=== PATIENT | female | born 1960 | race Caucasian/White ===

== ENCOUNTER 2022-01-11 08:12 | Day surgery (SDC) | payer OTHER, SELFPAY ==
[2022-01-07 08:06] VITALS: BMI 34.7
[2022-01-11 08:38] VITALS: BP 117/72; PULSE 81; RESP 18; TEMP 36.2; O2SAT 95; BMI 34.7
[2022-01-11] MEDS: SODIUM CHLORIDE 0.9 % (FLUSH) 10 ML SYRINGE IVF (08:47)
[2022-01-11] MEDS: LACTATED RINGERS 1000 ML 1,000 ML 100 ML IV (08:48)
[2022-01-11 09:36] LABS: Ur HCG Qualitative* Negative (Negative)
[2022-01-11] MEDS: BUPIVACAINE 0.25% 30 ML 15 ML INJECTION (10:57)
[2022-01-11] MEDS: LIDOCAINE 1% 20 ML VIAL INJECTION (10:57)
--- NOTE | 2022-01-11 11:04 | SUR.OPER ---
PATIENT QUESTIONS ANSWERED SATISFACTORILY PREOPERATIVELY.PATIENT BROUGHT TO OR #4 PER CART. Patient positioned supine on OR #4 bed for the . Pt. legs then moved into the lithotomy position for the procedure. Perioperative team supported arms bilaterally on arm boards. ?Final approval of positioning by surgeon. Continuous irrigation of the uterus with saline during the procedure. PREP - [place]-VAGINAL/VAULT AREA-UMBILICUS TO MID THIGH, ILIAC CREST TO ILIAC CREST.
--- NOTE | 2022-01-11 11:17 | W.PM.GYNPROC ---
Procedure Note Date Seen: 01/11/22 Procedure Details: DATE: 01/11/22 PREOPERATIVE DIAGNOSIS: 1. Postmenopausal bleeding. 2. Thickened endometrial lining, 1.3 cm, by ultrasound. 3. Submucosal fibroid, 1.4 cm, ultrasound. POSTOPERATIVE DIAGNOSIS: 1. Postmenopausal bleeding. 2. Thickened endometrial lining, 1.3 cm, by ultrasound. 3. Submucosal fibroid, 1.4 cm, ultrasound. NAME OF PROCEDURE: 1. Hysteroscopy. 2. D and C. 3. Polypectomy. 4. Submucosal fibroid. SURGEON: Ritchie. ANESTHESIA: Monitored anesthesia care and paracervical block. COMPLICATIONS: None.. ESTIMATED BLOOD LOSS: <10 mL. FINDINGS: Endometrial polyp arising from the posterior endometrium, near the left tubal ostia. A 2nd tiny endometrial polyp just within the right tubal ostia. Submucosal fibroid arising from the posterior endometrium, approximately 1/3 bulging in to the uterine cavity. PATHOLOGY SPECIMENS: 1. Combined specimen, endometrial polyp and submucosal fibroid. 2. Endometrial curettings. PROCEDURE: After obtaining informed consent, the patient was taken to the operating room where she received monitored anesthesia care. She was prepared and draped in the normal sterile fashion, in the dorsal lithotomy position. An open-sided bivalve speculum was introduced into the vagina and the cervix visualized. The anterior lip of the cervix was grasped with a single-tooth tenaculum for traction. A paracervical block was then administered using a total of 20 mL of a 50/50 mixture of 0.25% Marcaine and 1% lidocaine plain. The uterus was gently sounded. Sound length was 8 cm. The cervix was gently dilated to a #6 Hegar dilator. A hysteroscope was then advanced under direct visualization through the cervix into the uterine cavity. Sterile normal saline was used as distending medium. The uterine cavity was carefully inspected with the findings noted above. Pictures were taken for documentation purposes. The TruClear morcellator was inserted through the operating channel in the hysteroscope. The morcellator was used to remove the polyp in its entirety and the submucosal portion of the posterior fibroid. The hysteroscope was then removed. The endometrial lining was then sharply curetted. The hysteroscope was removed. The tenaculum was removed. There was little bleeding from the tenaculum site, which was controlled with direct pressure sponge stick. All instruments were then removed. The patient tolerated the procedure well. Sponge, lap, needle, and instrument counts reported as correct x2. The patient was taken to the recovery room awake in a stable condition.
[2022-01-11 11:23] VITALS: BP 130/68; PULSE 62; RESP 16; TEMP 36.4; O2SAT 95
[2022-01-11 11:30] VITALS: BP 135/80; PULSE 62; RESP 16; O2SAT 95
[2022-01-11 11:45] VITALS: BP 121/62; PULSE 54; RESP 16; O2SAT 98
[2022-01-11 12:00] VITALS: BP 132/73; PULSE 56; RESP 16; TEMP 36.1; O2SAT 99
--- NOTE | 2022-01-11 15:24 | W.ANESCHARGE ---
Anesthesia Charges Start Date/Time Anesthesia Start Date: 01/11/22 Anesthesia Start Time: 10:37 Stop Date/Time Anesthesia Stop Date: 01/11/22 Anesthesia Stop Time: 11:23 Summary Emergency: No
--- NOTE | 2022-01-11 15:28 | W.ANESCHARGE ---
Anesthesia Charges Start Date/Time Anesthesia Start Date: 01/11/22 Anesthesia Start Time: 10:37 Stop Date/Time Anesthesia Stop Date: 01/11/22 Anesthesia Stop Time: 11:23 Summary Emergency: No
== END 2022-01-11 12:14 | disposition home or self-care (01) ==
PROVIDERS: PCP Physician Assistant Medical; Visit Provider Obstetrics & Gynecology
PROC: 0UDB8ZZ Extraction of Endometrium, Via Natural or Artificial Opening Endoscopic (ICD-10-PCS; CPT 58558; principal; 2022-01-11 09:45)
DX: N95.0 Postmenopausal bleeding (principal); D25.0 Submucous leiomyoma of uterus; R93.89 Abnormal findings on diagnostic imaging of other specified body structures
CPT/HCPCS: 58558; 81025; 88305; 952; J1885; J2250; J2405; J2704; J3010; J3490; J7120

== ENCOUNTER 2022-04-10 20:38 | Day surgery (SDC) | payer OTHER, SELFPAY ==
[2022-04-10 20:49] VITALS: BP 184/102; PULSE 65; RESP 22; TEMP 35.5; O2SAT 98; BMI 34.9
--- NOTE | 2022-04-10 21:00 | CRLHL7_ITS ---
For Patients: As a result of the 21st Century Cures Act, medical imaging exams and procedure reports are released immediately into your electronic medical record. You may view this report before your referring provider. If you have questions, please contact your health care provider. INDICATION: Chest pain radiating to the back, vomiting.. TECHNIQUE: CT chest without contrast and CT chest, abdomen and pelvis acquired with 95 cc of Isovue 370 IV contrast, dissection protocol. COMPARISON: None. FINDINGS: CHEST: Cardiovascular structures: The unenhanced images demonstrate no evidence of aortic intramural thrombus. Thoracic aorta is normal in caliber without evidence of dissection. Heart size is normal. Mediastinum and romero: No mass or adenopathy. The calcified mediastinal node likely related to prior granulomatous disease. Lungs and pleura: Lungs are clear. Calcified granuloma in the right upper lobe (5/25). No pleural effusions. No pneumothorax. Chest wall and axilla: No mass or adenopathy. Bones: Unremarkable for age. ABDOMEN AND PELVIS: Limited arterial phase only images of the abdomen. Liver: Unremarkable. Gallbladder and bile ducts: 1.6 centimeter radiopaque stone at the neck of the gallbladder (6/215) the gallbladder is mildly distended. No surrounding inflammatory changes are identified. No wall thickening. No pericholecystic fluid. No intra or extrahepatic biliary ductal dilatation. Pancreas: Unremarkable. Spleen: Unremarkable. Adrenal glands: 1.7 centimeter nodule in the left adrenal gland measures 3.4 Hounsfield units on the noncontrast images consistent with adrenal adenoma. Right adrenal gland is unremarkable. Kidneys: No hydronephrosis or hydroureter. No renal stones identified. GI tract: Scattered colonic diverticulosis without evidence of diverticulitis. No bowel obstruction. Appendix is within normal limits. Tiny hiatal hernia. Vascular structures: Abdominal aorta is normal in caliber without evidence of dissection. Mesenteric arteries are patent. Incidentally noted 2 right renal arteries. Lymph nodes: Unremarkable. Miscellaneous: Unremarkable. No free air or significant free fluid. Pelvic Organs: Unremarkable. Bones: Unremarkable for age. IMPRESSION: No aortic dissection is identified. Cholelithiasis without evidence of cholecystitis. Left adrenal gland benign adenoma. Colonic diverticulosis without evidence of diverticulitis. Please note that all CT scans at this facility use dose modulation, iterative reconstruction, and/or weight-based dosing when appropriate to reduce radiation dose to as low as reasonably achievable. Dictated by Gareth Bailey MD @ 04/10/2022 10:12:49 PM (Electronically Signed)
[2022-04-10 21:07] VITALS: BP 187/90
[2022-04-10] MEDS: ONDANSETRON 2 MG/ML inj 4 MG IVP (21:13)
[2022-04-10] MEDS: NITROGLYCERIN 0.4 MG TAB.SUBL SUBLINGUAL (21:13)
[2022-04-10] MEDS: 0.9 % SODIUM CHLORIDE 1000 ml 1,000 ML IV (21:13)
[2022-04-10 21:20] LABS: Lactate* 1.6 mmol/L (0.5-1.9)
[2022-04-10 21:21] LABS: Hemoglobin* 14.1 gm/dL (12.0-16.0); White Blood Count* 11.84 K/uL (4.50-11.00)
[2022-04-10 21:22] LABS: Basophils Percent Auto 0.4 % (0.0-3.0); Eosinophils Percent Auto 4.1 % (0.0-7.0); Hematocrit 42.5 % (33.0-51.0); Immature Granulocytes Pct Auto 0.5 %; Lymphocytes Percent Auto 34.1 % (20-44); Mean Corpuscular HGB Conc 33 gm/dL (32-36); Mean Corpuscular Hemoglobin 27 pg (26-34); Mean Corpuscular Volume 82 fL (80-100); Monocytes Percent Auto 7.3 % (0.0-11.0); Neutrophils Percent Auto 53.6 % (42.0-72.0); Platelet Count* 358 K/uL (140-440)
[2022-04-10 21:23] VITALS: O2SAT 97
[2022-04-10 21:23] LABS: Slide Review Reflex No
--- NOTE | 2022-04-10 21:30 | ED.NURSE ---
POC Chem8 Results @ 0902 Na 138 K 3.8 Cl 105 iCa 1.17 TCO2 28 Glu 198 BUN 18 Hct 45 Hgb 15.3 AnGap 14
[2022-04-10 21:31] LABS: Troponin, Point-of-Care* 0.01 ng/ml (0.01-0.04)
[2022-04-10 21:34] LABS: Albumin* 4.5 g/dL (3.3-5.0)
[2022-04-10 21:35] LABS: Chloride* 103 mmol/L (96-114); Potassium* 4.1 mmol/L (3.6-5.1); Sodium* 136 mmol/L (135-149)
[2022-04-10 21:37] LABS: Alanine Aminotransferase* 25 U/L (4-35); Alkaline Phosphatase* 115 U/L (40-150); Aspartate Amino Transferase* 26 U/L (12-35); Bilirubin Direct* 0.2 mg/dL (0.0-0.5); Bilirubin Total* 0.3 mg/dL (0.1-1.5); Creatinine* 0.6 mg/dL (0.5-1.5); Est. Creatinine Clearance* 90.84; Estimated Glomerular Filt Rate 103 ml/min; Lipase* 74 U/L (23-300); Total Protein* 7.9 g/dL (6.0-8.3)
[2022-04-10 21:38] LABS: Blood Urea Nitrogen* 19 mg/dL (7-30); Carbon Dioxide* 23 mmol/L (20-32); Glucose* 203 mg/dL (60-115)
[2022-04-10 21:39] LABS: Calcium* 9.4 mg/dL (8.4-10.6)
[2022-04-10 21:50] VITALS: BP 149/68; PULSE 51; RESP 14; O2SAT 100
[2022-04-10 21:53] LABS: PCR FLU A Negative PCR FLU A (Negative); PCR FLU B Negative PCR FLU B (Negative); PCR RSV Negative PCR RSV (Negative)
--- OUTSIDE RECORDS SUMMARY | 2022-04-10 21:53 | XMS_ITS | Clinical Summary ---
:1960 Author Organization [employer] [facility] [place] [address] Care Team Providers Name Role Phone Daija Johns Primary Care Provider [phone] Allergies Active Allergy Reactions Severity Noted Date Comments Metformin Rash 10/05/2021 Tetracycline Rash, Photosensitivity 07/11/2010 Medications No known medications Active Problems Problem Noted Date Pap smear for cervical cancer screening 09/07/2021 Overview: 09/2021-NIL/HPVneg. Plan: Pap/HPV due 2026 Left Peroneal tendonitis 07/11/2010 Left edema of subcutaneous tissues of distal left calf Encounters Date Type Specialty Care Team Description 04/05/2022 Orders Only Lab, [facility] 04/05/2022 Travel 04/04/2022 Telephone Daija Johns PA L ab 01/11/2022 Lab Requisition Alejandrina Dugan MD from Last 3 Months Family History Medical History Relation Name Comments Anxiety disorder Brother Depression Brother Stroke Father Heart Disease Mother Lung cancer Mother Cancer-ovarian Sister metastasis Cancer-breast No Family History Relation Name Status Comments Brother Father (Age 51) Mother Sister Social History Tobacco Use Types Packs/Day Years Used Date Former Smoker Quit: 07/10/18 89 Smokeless Tobacco: Never Used Tobacco Cessation: Counseling Given: Yes Alcohol Use Standard Drinks/Week Comments No 0 (1 standard drink = 0.6 oz pure alcoho l) Sex Assigned at Date Recorded Not on file COVID-19 Exposure Response Date Recorded In the last 10 days, have you been in contact with No / Unsu re 04/05/2022 12:02 PM CDT someone who was confirmed or suspected to have Coronavirus/COVID-19? Obstetrics History Last Filed Vital Signs Vital Sign Reading Time Taken Comments Blood Pressure 102/70 01/05/2022 9:38 AM CDT Pulse 68 01/05/2022 9:38 AM CDT Temperature - - Respiratory Rate - - Oxygen Saturation 97% 01/05/2022 9:38 AM CDT Inhaled Oxygen Concentration - - Weight 96.2 kg (212 lb) 01/05/2022 9:38 AM CDT Height 166.4 cm (5' 5.5) 01/05/2022 9:38 AM CDT Body Mass Index 34.74 01/05/2022 9:38 AM CDT Plan of Treatment Health Maintenance Due Date Last Done Comments Pneumococcal series for age 19-64 (1 - 1968 PCV) Tdap 1973 Hepatitis C screening for age 18-79 1980 Hepatitis B series for Diabetes (1 of 3 - 1981 Risk 3-dose series) Tetanus booster 1982 Colonoscopy through age 75 2007 Zoster (shingles) series for age 50+ (1 of 2012 2) Influenza for age 50-64 03/10/2022 COVID-19 vaccine series (3 - Booster for 04/07/2022 022, 05/29/2021 Moderna series) Depression screening for age 12+ 10/07/2022 10/07/2021, Mammogram for age 45-75 12/27/2022 12/27/2021 BMI (ht and wt on same day) for age 18+ 01/05/2023 01/06/20 22, 10/05/2021 Lipids for age 45-75 10/05/2026 10/05/2021 Pap test for age 21-65 10/05/2026 10/05/2021, 10/05/2021 Procedures Procedure Name Priority Date/Time Associated Comments Diagnosis CBC WITH AUTO Routine 04/05/2022 12:23 Screening due Results f or this DIFFERENTIAL PM CDT procedure are i n the results section. GLUCOSE, RANDOM Routine 04/05/2022 12:23 Screening due Results for this PM CDT procedure are i n the results section. MAGNESIUM Routine 04/05/2022 12:23 Screening due Results fo r this PM CDT procedure are i n the results section. VITAMIN B12 Routine 04/05/2022 12:23 Screening due Results fo r this PM CDT procedure are i n the results section. CBC WITH AUTO Routine 04/05/2022 12:23 Screening due Results f or this DIFFERENTIAL PM CDT procedure are i n the results section. FERRITIN Routine 04/05/2022 12:23 Screening due Results fo r this PM CDT procedure are i n the results section. T4,FREE Routine 04/05/2022 12:23 Screening due Results fo r this PM CDT procedure are i n the results section. TSH WITH REFLEX Routine 04/05/2022 12:23 Screening due Results for this PM CDT procedure are i n the results section. HEMOGLOBIN A1C Routine 04/05/2022 12:23 Type 2 diabetes Result s for this PM CDT mellitus without procedure a re in complication, the results without long-term section. current use of insulin (HC) LAB TRACKING EVENT Routine 01/11/2022 11:15 AM CDT PATH TISSUE EXAM Routine 01/11/2022 11:15 Results for this AM CDT procedure are i n the results section. from Last 3 Months Results (ABNORMAL) CBC WITH AUTO DIFFERENTIAL (04/05/2022 12:23 PM CDT) [facility] gist Method Time Signature WHITE BLOOD 9.8 4.5 - 11.0 04/05/2022 [facility] COUNT thou/cu mm 12:34 PM T [facility] RED BLOOD COUNT 5.14 4.00 - 04/05/2022 [facility] 5.20 12:34 PM CDT [place] mil/cu mm CLINIC HEMOGLOBIN 14.3 12.0 - 04/05/2022 [facility] 16.0 g/dL 12:34 PM T [facility] HEMATOCRIT 42.3 33.0 - 04/05/2022 [facility] 51.0 % 12:34 PM T [facility] MCV 82 80 - 100 04/05/2022 [facility] fL 12:34 PM CDT [facility] MCH 27.8 26.0 - 04/05/2022 [facility] 34.0 pg 12:34 PM CDT [facility] MCHC 33.8 32.0 - 04/05/2022 [facility] 36.0 g/dL 12:34 PM CDT [facility] RDW 14.6 11.5 - 04/05/2022 [facility] 15.5 % 12:34 PM CDT [facility] PLATELET COUNT 357 140 - 440 04/05/2022 [facility] HEALTH thou/cu mm 12:34 PM CDT [facility] MPV 9.9 6.5 - 11.0 04/05/2022 [facility] fL 12:34 PM CDT [facility] % NEUT 58.1 % 04/05/2022 [facility] 12:34 PM CDT [facility] % LYMPH 30.4 % 04/05/2022 [facility] 12:34 PM CDT [facility] % MONO 7.5 % 04/05/2022 [facility] 12:34 PM CDT [facility] % EOS 3.4 % 04/05/2022 [facility] 12:34 PM CDT [facility] % BASO 0.6 % 04/05/2022 [facility] 12:34 PM CDT [facility] ABSOLUTE 5.7 1.7 - 7.0 04/05/2022 [facility] NEUTROPHILS thou/cu mm 12:34 PM CDT [facility] ABSOLUTE 3.0 (H) 0.9 - 2.9 04/05/2022 [facility] LYMPHOCYTES thou/cu mm 12:34 PM CDT [facility] ABSOLUTE 0.7 <0.9 04/05/2022 [facility] MONOCYTES thou/cu mm 12:34 PM CDT [facility] ABSOLUTE 0.3 <0.5 04/05/2022 [facility] EOSINOPHILS thou/cu mm 12:34 PM CDT [facility] ABSOLUTE 0.1 <0.3 04/05/2022 [facility] BASOPHILS thou/cu mm 12:34 PM CDT [facility] Specimen Anatomical Collection Method / Collection Time Recei gerard Time (Source) Location / Volume Laterality Blood BLOOD SPECIMEN / Venipuncture / 04/05/2022 12:23 04/05 Unknown Unknown PM CDT 12:26 PM CDT Daija WYATT HEMATOLOGY Performing Organization Address City/State/ZIP Code Phon e Number [facility] [address] [place] [address] TSH WITH REFLEX (04/05/2022 12:23 PM CDT) athologist Signature TSH 1.11 0.35 - 4.94 04/06/2022 [facility] uIU/mL 7:34 AM CDT LABORATORY-CENTR AL LABORATORY Specimen Anatomical Collection Method / Collection Time Recei gerard Time (Source) Location / Volume Laterality Blood BLOOD SPECIMEN / Venipuncture / 04/05/2022 12:23 04/05 Unknown Unknown PM CDT 12:26 PM CDT [facility] LABORATORY-CENTRAL LABORAT ORY - 04/06/2022 7:34 AM CDT In Adults, TSH values between 5.00 and 10.00 uIU/ml do not necessarily indicate the presence of Hyp othyroidism. Correlation with clinical findings such as presence of goiter and/or Thyroperoxidase (TPO) Antibody ma y be helpful. For more information please refer to PIO 20 ; 291: [phone]. Daija WYATT CHEMISTRY Performing Organization Address City/State/ZIP Code Phon e Number [facility] [address] [place] [id number] LABORATORY-CENTRAL 2000 LABORATORY GLUCOSE, RANDOM (04/05/2022 12:23 PM CDT) athologist [facility] GLUCOSE,RANDOM 97 65 - 140 04/05/2022 [facility] mg/dL 12:37 PM CDT [facility] Specimen Anatomical Collection Method / Collection Time Recei gerard Time (Source) Location / Volume Laterality Blood BLOOD SPECIMEN / Venipuncture / 04/05/2022 12:23 04/05 Unknown Unknown PM CDT 12:26 PM CDT Daija WYATT CHEMISTRY Performing Organization Address City/State/ZIP Code Phon e Number [facility] [address] [place] [address] T4,FREE (04/05/2022 12:23 PM CDT) athologist Signature T4,FREE 0.84 0.70 - 1.80 04/06/2022 [facility] ng/dL 7:34 AM CDT LABORATORY-CENTR AL LABORATORY Specimen Anatomical Collection Method / Collection Time Recei gerard Time (Source) Location / Volume Laterality Blood BLOOD SPECIMEN / Venipuncture / 04/05/2022 12:23 04/05 Unknown Unknown PM CDT 12:26 PM CDT Daija WYATT CHEMISTRY Performing Organization Address City/State/ZIP Code Phon e Number [facility] [address] [place] [address] LABORATORY-CENTRAL 2000 LABORATORY MAGNESIUM (04/05/2022 12:23 PM CDT) athologist Signature MAGNESIUM 2.0 1.6 - 2.6 04/06/2022 [facility] [employer] mg/dL 7:16 AM CDT LABORATORY-CENTR AL LABORATORY Specimen Anatomical Collection Method / Collection Time Recei gerard Time (Source) Location / Volume Laterality Blood BLOOD SPECIMEN / Venipuncture / 04/05/2022 12:23 04/05 Unknown Unknown PM CDT 12:26 PM CDT Daija WYATT CHEMISTRY Performing Organization Address City/State/[facility] Code Phon e Number [facility] [employer] [address] [place] [address] LABORATORY-CENTRAL 2000 LABORATORY HEMOGLOBIN A1C MONITORING (POCT) (04/05/2022 12:23 PM CDT) athologist Signature HEMOGLOBIN A1C 6.4 <=6.4 % 04/05/2022 [facility] [employer] MONITORING 12:38 PM CDT [facility] (POCT) [facility] Specimen Anatomical Collection Method / Collection Time Recei gerard Time (Source) Location / Volume Laterality Blood BLOOD SPECIMEN / Venipuncture / 04/05/2022 12:23 04/05 Unknown Unknown PM CDT 12:26 PM CDT Narrative [facility] - 2021 12:38 PM CDT ? (<=6.9%) ? Indicates good control ? (7.0% to 7.9%) ? Indicates fa ir control ? (>=8.0%) ? Indicates poor control ?? NOTE: ??These thresholds are guideli cara and ?individual targets may va ry. Falsely low levels may be seen with: Recent Transfusion, Recent Significant B lood Loss, Hemolytic Diseases, or Falsely elevated levels may be seen with : Untreated Anemias, Splenectomy ? Daija WYATT CHEMISTRY Performing Organization Address City/State/ZIP Code Phon e Number [facility] [address] [place] [address] FERRITIN (04/05/2022 12:23 PM CDT) athologist Signature FERRITIN 41.3 15.0 - 04/06/2022 [facility] 205.0 ng/mL 7:34 AM CDT LABORATORY-CENTR AL LABORATORY Specimen Anatomical Collection Method / Collection Time Recei gerard Time (Source) Location / Volume Laterality Blood BLOOD SPECIMEN / Venipuncture / 04/05/2022 12:23 04/05 Unknown Unknown PM CDT 12:26 PM CDT Daija WYATT CHEMISTRY Performing Organization Address City/[facility]/ZIP Code Phon e Number [facility] [address] [place] [address] LABORATORY-CENTRAL 2000 LABORATORY VITAMIN B12 (04/05/2022 12:23 PM CDT) athologist Signature VITAMIN B12 207 180 - 914 04/06/2022 [facility] pg/mL 11:50 AM CDT LABORATORY-[facility] LABORATORY Specimen Anatomical Collection Method / Collection Time Recei gerard Time (Source) Location / Volume Laterality Blood BLOOD SPECIMEN / Venipuncture / 04/05/2022 12:23 04/05 Unknown Unknown PM CDT 12:26 PM CDT Daija WYATT CHEMISTRY Performing Organization Address City/[facility]/ZIP Code Phon e Number [facility] [address] [place] [address] LABORATORY-CENTRAL 2000 LABORATORY LAB TRACKING EVENT (01/11/2022 11:15 AM CDT) Specimen Anatomical Collection Method Collection Time Receive d Time (Source) Location / / Volume Laterality Other (Other) Client Collect / 01/11/2022 11:15 2021 9:51 Unknown AM CDT PM CDT Alejandrina Dugan MD LAB BILL ONLY Performing Organization Address City/[facility]/ZIP Code Phon e Number [facility] [address] [place] [address] LABORATORY-CENTRAL 1999 LABORATORY PATH TISSUE EXAM (01/11/2022 11:15 AM CDT) Component Value Ref Test Analysis Performed At [facility] gist Range Method Time Signature Case Report Pathology Report ?Case: [id number] ? 01/13/2022 [facility] Authorizing Provider: ??Supp es, Alejandrina Templeton MD ?Collected: ? 01/11/2022 1115 ? 10:41 AM HEALTH Ordering Location: ? [facility] CENTRAL LAB ?Received: ?01/12/2022 0957 ? CDT [facility] Pathologist: ? Natali Jang MD ? ENTRAL Specimen: ?Endometrial C urettings ? LABORATORY Final A) ENDOMETRIUM WITH POLYP AND FIBROID, CURETTAGE AND P OLYPECTOMY: 01/13/2022 [facility] Electronically Diagnosis 1. Complex hyperplasia witho ut atypia in fragment(s) of endometrial polyp 10:41 AM HEALTH signed by Suhail , 2. Fragments of submucosal leiomyoma(s) CDT LABORATORY-C Natali Florentino, 3. Scant background inactive endometrium ENTRAL MD on 01/13/2022 4. Negative for malignancy in this sample LABORATORY at 10:41 AM 5. See comment Comment The presence of complex hype rplasia without atypia in an endometrial polyp is an uncommon finding. Although the precise clinical significance of this finding is not clear due to its infrequent nature, s 0 01/13/2022 [facility] uch a finding is thought to have a minimal risk of pro gression to carcinoma. 10:41 AM HEALTH CDT LABORATORY-C However, it is recommended t o ensure that the endometrial polyp is entirely removed and evaluated to exclude a more advanced lesion within the polyp. Thus a follow-up curettage may be necessary if clinically indicated. ENTRAL LABORATORY Case seen in consultation with Dr. Navarrete. Clinical 61-year-old 01/13/2022 [facility] Information female with 10:41 AM [facility] menorrhagia CDT LABORATORY-C ENTRAL LABORATORY Gross A) Received in formalin, lab eled with the patient's name and endometrial curettings, polyp, fibroid, is a 1.4 gram, 3 x 2.2 x 0.8 cm aggregate of multiple gaona-white, focally hemorrhagic soft tissue cu 01/13/2022 [facility] Description rettings which are wrapped and entirely submitted in 2 cassettes. 10:41 AM [facility] CDT LABORATORY-C The specimen was placed in formalin at 1115 on 01/11/2022. ENTRAL LABORATORY LDW 01/12/2022 Microscopic The final 01/13/2022 [facility] Description diagnosis is 10:41 AM [facility] based on CDT LABORATORY-C microscopic ENTRAL examination of LABORATORY appropriate sections of all specimens. Additional 01/13/2022 [facility] Information Interpreted at [facility] Laboratory, Central Laboratory - [address], [place] [address] 10:41 AM [facility] CDT LABORATORY-C ENTRAL LABORATORY Specimen Anatomical Collection Method Collection Time Receive d Time (Source) Location / / Volume Laterality Other 01/11/2022 11:15 01/12/2022 9:57 (Endometrial AM CDT AM CDT Curettings) Alejandrina Dugan MD PATHOLOGY/CYTOLOGY Performing Organization Address City/State/ZIP Code Phon e Number [facility] [address] [place] [address] LABORATORY-CENTRAL 2000 LABORATORY from Last 3 Months Insurance Payer Benefit Plan / Subscriber ID Effective Dates Phone Addre ss Type [facility] [employer] 2021-Present [address] [place] [address] Care Teams Manager [employer] Relationship Specialty Start Date End Date Daija Johns PA PCP - General Physician Medical Center Director 10/05/[address] [place] [address]
[2022-04-10 21:54] LABS: SARS PCR* Negative SARS-CoV-2 (Negative)
[2022-04-10] MEDS: MORPHINE 2 MG/ML inj 4 MG IVP (21:55)
[2022-04-10 21:57] LABS: Erythrocyte SedimentationRate* 9 mm/hr (2-20)
--- NOTE | 2022-04-10 22:06 | ED_ITS ---
HPI - General Adult General Chief complaint: Back Injury/Pain Stated complaint: Vomiting Back Pain Chest Pain Headache Time Seen by Provider: 04/10/22 20:44 Source: patient Mode of arrival: ambulatory Limitations: no limitations History of Present Illness HPI narrative: 61-year-old female coming in today complaining of pain. States that shortly after supper she started feeling a pressure in her central chest that radiated to both the left and right sides of the chest. She then went for a walk and this pain got significantly worse. The pain then radiated into her back across her entire mid back. She does not feel short of breath. She states that she cannot find a comfortable position because she is in so much pain. She does not feel dizzy or lightheaded. She denies any recent illness, fevers or chills. When the pain started she also started vomiting. She states that she has vomited multiple times since the pain has started. No blood in her vomitus. Patient does not smoke. No history of intra-abdominal or intrathoracic surgery, she has had a hysteroscopy and D&C in the past. She does have a history of diabetes. Nothing makes the pain better or worse. The pain does radiate down into her abdomen as well. Related Data Home Medications Medication Instructions Recorded Confirmed coenzyme Q10 400 mg capsule mg PO 01/24/22 01/24/22 garlic 500 mg capsule 500 mg PO QDAY 01/24/22 04/10/22 [id number] 04/10/22 magnesium citrate 75 ml PO HS 04/10/22 04/10/22 Allergies Allergy/AdvReac Type Severity Reaction Status Date / Time Tetracyclines Allergy Intermediate Verified 04/10/22 21:46 metformin AdvReac Intermediate itchy rash Verified 04/10/22 21:46 Review of Systems Status of ROS: Reports: 10 or more systems reviewed and unremarkable except as noted in History and below [facility] Medical History (Updated 04/10/22 @ 23:36 by Goldie De La Torre MD) Cyst of left Bartholin's gland duct Diabetes mellitus Endometrial hyperplasia without atypia, complex (01/11/22) History of melanoma Hyperlipidemia Pap smear for cervical cancer screening Peroneal tendinitis, left leg Status post hysteroscopy (01/11/22) Surgical History (Updated 04/10/22 @ 23:36 by Goldie De La Torre MD) History of tonsillectomy Hx of melanoma excision Social History Smoking Status: Never smoker How often do you have a drink containing alcohol: monthly or less How many standard drinks containing alcohol do you have on a typical day: 1 or 2 How often do you have six or more drinks on one occasion: Less than monthly AUDIT-C Alcohol total score: 2 Non-prescribed substance use: denies use Caffeine: No Exam Narrative: Exam Narrative: Well-nourished well-developed patient will is obviously uncomfortable. Alert and oriented. Answers questions appropriately. Mood and affect are appropriate. Thoughts are goal oriented and rational. No tangential or magical thinking noted. Patient speaks in full sentences without needing to catch her breath. Speech is not slurred or pressured HEENT: Normocephalic atraumatic. Pupils are equally round reactive to light. Extraocular muscles are intact. Conjunctivae are moist without any icterus noted. Moist mucous membranes. Posterior pharynx is normal. Neck is soft without any lymphadenopathy or thyromegaly. No masses are appreciated. Cardiovascular: Heart is regular rate and rhythm S1 and S2 are present without any murmurs. Lungs: Clear to auscultation bilaterally no wheezes rhonchi or rales are appreciated. Patient takes deep breaths without any discomfort. I cannot reproduce her pain on palpation. Abdomen: Soft and nontender nondistended with normal bowel sounds. No guarding or rebound. No masses or organomegaly appreciated. Negative Bangura sign. Extremities: Bilateral lower extremities are without edema. Normal and symmetric DP and PT pulses. Radial pulses are symmetric. Skin: Well perfused without any obvious rashes. Const: Vital Signs, click to edit/add: Vital Signs - 24 hr 04/10/22 20:49 04/10/22 21:07 04/10/22 21:23 Temperature 95.9 F L Pulse Rate [Left P ulse Oximeter] 65 Respiratory Rate 22 Blood Pressure [Le ft Upper Arm] 187/90 H Blood Pressure [Ri ght Upper Arm] 184/102 H Pulse Oximetry 98 97 Oxygen Delivery Me thod Room Air 04/10/22 21:50 Temperature Pulse Rate [Left P ulse Oximeter] 51 L Respiratory Rate 14 Blood Pressure [Le ft Upper Arm] 149/68 H Blood Pressure [Ri ght Upper Arm] Pulse Oximetry 100 Oxygen Delivery Me thod Room Air Course Reevaluation(s) Reevaluation #1: Upon arrival patient receives sublingual nitro which did not alleviate her pain. EKG was done which showed sinus bradycardia with a pulse of [address] changes. Patient received IV morphine and Zofran. The morphine did not help her pain however the Zofran did calm down her stomach and alleviate her nausea and vomiting. There was certainly a concern about aortic dissection therefore patient had a chest abdomen and pelvis CT with contrast done which fortunately did not show dissection however did show a large stone in the neck of the gallbladder. Labs were unremarkable, troponin was normal, no signs of cholecystitis noted on imaging or lab work. Who proceeded with IV Dilaudid which did help her symptoms. I consulted with Dr. Leroy who recommended admission and surgical intervention in the morning. Repeat troponin and EKG were unremarkable. Vital Signs Vital signs: Initial Vital Signs Temperature 95.9 F L 04/10/22 20:49 Temperature Source Temporal Artery Scan 04/10/22 20:49 Pulse Rate 65 04/10/22 20:49 Pulse Rhythm 04/10/22 20:49 Respiratory Rate 22 04/10/22 20:49 Blood Pressure 184/102 H 04/10/22 20:49 Blood Pressure Mean 129 04/10/22 20:49 Blood Pressure Position Sitting 04/10/22 20:49 Pulse Oximetry 98 04/10/22 20:49 Oxygen Delivery Method 04/10/22 20:49 Vital Signs Temperature 95.9 F L 04/10/22 20:49 Pulse Rate 65 04/10/22 20:49 Respiratory Rate 22 04/10/22 20:49 Blood Pressure 184/102 H 04/10/22 20:49 Pulse Oximetry 98 04/10/22 20:49 Oxygen Delivery Method 04/10/22 20:49 Temperature 95.9 F L 04/10/22 20:49 Pulse Rate 51 L 04/10/22 21:50 Respiratory Rate 14 04/10/22 21:50 Blood Pressure 149/68 H 04/10/22 21:50 Pulse Oximetry 100 04/10/22 21:50 Oxygen Delivery Method 04/10/22 21:50 Medical Decision Making MDM Narrative Medical decision making narrative: 61-year-old female with 1.6 cm stone at the neck of the gallbladder with gallbladder distension, likely the cause of her pain. Patient will be admitted for pain management and surgical intervention in the morning. Medical Records Medical records reviewed: Yes I reviewed the patient's medical records Lab Data Lab results reviewed: Yes I reviewed the patient's lab results Labs: Lab Results 04/10/22 04/10/22 04/10/22 Range/Units 21:02 21:02 21:02 WBC 11.84 H (4.50-11.00) K/uL RBC 5.20 (4.00-5.20) m/uL Hgb 14.1 (12.0-16.0) gm/dL Hct 42.5 (33.0-51.0) % MCV 82 (80-100) fL MCH 27 (26-34) pg MCHC 33 (32-36) gm/dL Plt Count 358 (140-440) K/uL Neut % (Auto) 53.6 (42.0-72.0) % Lymph % (Auto) 34.1 (20-44) % [place] % (Auto) 7.3 (0.0-11.0) % Eos % (Auto) 4.1 (0.0-7.0) % Baso % (Auto) 0.4 (0.0-3.0) % Neut # (Auto) 6.30 (1.7-7.0) K/uL Lymph # (Auto) 4.00 H (0.90-2.90) K/uL [place] # (Auto) 0.90 (0.00-0.90) K/UL Eos # (Auto) 0.50 (0.00-0.50) K/uL Baso # (Auto) 0.00 (0.00-0.30) K/uL Abs Immat Gran (auto) 0.10 (0.00-0.30) K/uL Imm/Tot Granulo (auto) 0.5 % ESR 9 (2-20) mm/hr Sodium 136 (135-149) mmol/L Potassium 4.1 (3.6-5.1) mmol/L Chloride 103 (96-114) mmol/L Carbon Dioxide 23 (20-32) mmol/L BUN 19 (7-30) mg/dL Creatinine 0.6 (0.5-1.5) mg/dL Estimated Creat Clear 90.84 Estimated GFR 103 ml/min Glucose 203 H (60-115) mg/dL Lactate (0.5-1.9) mmol/L Calcium 9.4 (8.4-10.6) mg/dL Total Bilirubin (0.1-1.5) mg/dL Direct Bilirubin (0.0-0.5) mg/dL AST (12-35) U/L ALT (4-35) U/L Alkaline Phosphatase (40-150) U/L C-Reactive Protein 1.0 (0.5-1.0) mg/dL Total Protein (6.0-8.3) g/dL Albumin (3.3-5.0) g/dL Lipase (23-300) U/L SARS-CoV-2 (PCR) (Negative) Influenza Type A (PCR) (Negative) Influenza Type B (PCR) (Negative) RSV (PCR) (Negative) POC Troponin I (0.01-0.04) ng/ml 04/10/22 04/10/22 04/10/22 Range/Units 21:02 21:02 21:02 WBC (4.50-11.00) K/uL RBC (4.00-5.20) m/uL Hgb (12.0-16.0) gm/dL Hct (33.0-51.0) % MCV (80-100) fL MCH (26-34) pg MCHC (32-36) gm/dL Plt Count (140-440) K/uL Neut % (Auto) (42.0-72.0) % Lymph % (Auto) (20-44) % [place] % (Auto) (0.0-11.0) % Eos % (Auto) (0.0-7.0) % Baso % (Auto) (0.0-3.0) % Neut # (Auto) (1.7-7.0) K/uL Lymph # (Auto) (0.90-2.90) K/uL [place] # (Auto) (0.00-0.90) K/UL Eos # (Auto) (0.00-0.50) K/uL Baso # (Auto) (0.00-0.30) K/uL Abs Immat Gran (auto) (0.00-0.30) K/uL Imm/Tot Granulo (auto) % ESR (2-20) mm/hr Sodium (135-149) mmol/L Potassium (3.6-5.1) mmol/L Chloride (96-114) mmol/L Carbon Dioxide (20-32) mmol/L BUN (7-30) mg/dL Creatinine (0.5-1.5) mg/dL Estimated Creat Clear Estimated GFR ml/min Glucose (60-115) mg/dL Lactate 1.6 (0.5-1.9) mmol/L Calcium (8.4-10.6) mg/dL Total Bilirubin 0.3 (0.1-1.5) mg/dL Direct Bilirubin 0.2 (0.0-0.5) mg/dL AST 26 (12-35) U/L ALT 25 (4-35) U/L Alkaline Phosphatase 115 (40-150) U/L C-Reactive Protein (0.5-1.0) mg/dL Total Protein 7.9 (6.0-8.3) g/dL Albumin 4.5 (3.3-5.0) g/dL Lipase 74 (23-300) U/L SARS-CoV-2 (PCR) (Negative) Influenza Type A (PCR) (Negative) Influenza Type B (PCR) (Negative) RSV (PCR) (Negative) POC Troponin I 0.01 (0.01-0.04) ng/ml 04/10/22 Range/Units 21:10 WBC (4.50-11.00) K/uL RBC (4.00-5.20) m/uL Hgb (12.0-16.0) gm/dL Hct (33.0-51.0) % MCV (80-100) fL MCH (26-34) pg MCHC (32-36) gm/dL Plt Count (140-440) K/uL Neut % (Auto) (42.0-72.0) % Lymph % (Auto) (20-44) % [place] % (Auto) (0.0-11.0) % Eos % (Auto) (0.0-7.0) % Baso % (Auto) (0.0-3.0) % Neut # (Auto) (1.7-7.0) K/uL Lymph # (Auto) (0.90-2.90) K/uL [place] # (Auto) (0.00-0.90) K/UL Eos # (Auto) (0.00-0.50) K/uL Baso # (Auto) (0.00-0.30) K/uL Abs Immat Gran (auto) (0.00-0.30) K/uL Imm/Tot Granulo (auto) % ESR (2-20) mm/hr Sodium (135-149) mmol/L Potassium (3.6-5.1) mmol/L Chloride (96-114) mmol/L Carbon Dioxide (20-32) mmol/L BUN (7-30) mg/dL Creatinine (0.5-1.5) mg/dL Estimated Creat Clear Estimated GFR ml/min Glucose (60-115) mg/dL Lactate (0.5-1.9) mmol/L Calcium (8.4-10.6) mg/dL Total Bilirubin (0.1-1.5) mg/dL Direct Bilirubin (0.0-0.5) mg/dL AST (12-35) U/L ALT (4-35) U/L Alkaline Phosphatase (40-150) U/L C-Reactive Protein (0.5-1.0) mg/dL Total Protein (6.0-8.3) g/dL Albumin (3.3-5.0) g/dL Lipase (23-300) U/L SARS-CoV-2 (PCR) Negative SARS-CoV-2 (Negative) Influenza Type A (PCR) Negative PCR FLU A (Negative) Influenza Type B (PCR) Negative PCR FLU B (Negative) RSV (PCR) Negative PCR RSV (Negative) POC Troponin I (0.01-0.04) ng/ml Imaging Data CT Chest/Ab/Pelvis: Attestation: I have reviewed the pertinent imaging results. Radiologist's impression: TECHNIQUE: CT chest without contrast and CT chest, abdomen and pelvis acquired with 95 cc of Isovue 370 IV contrast, dissection protocol. COMPARISON: None. FINDINGS: CHEST: Cardiovascular structures: The unenhanced images demonstrate no evidence of aortic intramural thrombus. Thoracic aorta is normal in caliber without evidence of dissection. Heart size is normal. Mediastinum and romero: No mass or adenopathy. The calcified mediastinal node likely related to prior granulomatous disease. Lungs and pleura: Lungs are clear. Calcified granuloma in the right upper lobe (5/25). No pleural effusions. No pneumothorax. Chest wall and axilla: No mass or adenopathy. Bones: Unremarkable for age. ABDOMEN AND PELVIS: Limited arterial phase only images of the abdomen. Liver: Unremarkable. Gallbladder and bile ducts: 1.6 centimeter radiopaque stone at the neck of the gallbladder (6/215) the gallbladder is mildly distended. No surrounding inflammatory changes are identified. No wall thickening. No pericholecystic flu id. No intra or extrahepatic biliary ductal dilatation. Pancreas: Unremarkable. Spleen: Unremarkable. Adrenal glands: 1.7 centimeter nodule in the left adrenal gland measures 3.4 Hounsfield units on the noncontrast images consistent with adrenal adenoma. Right adrenal gland is unremarkable. Kidneys: No hydronephrosis or hydroureter. No renal stones identified. GI tract: Scattered colonic diverticulosis without evidence of diverticulitis. No bowel obstruction. Appendix is within normal limits. Tiny hiatal hernia. Vascular structures: Abdominal aorta is normal in caliber without evidence of dissection. Mesenteric arteries are patent. Incidentally noted 2 right renal arteries. Lymph nodes: Unremarkable. Miscellaneous: Unremarkable. No free air or significant free fluid. Pelvic Organs: Unremarkable. Bones: Unremarkable for age. IMPRESSION: No aortic dissection is identified. Cholelithiasis without evidence of cholecystitis. Left adrenal gland benign adenoma. Colonic diverticulosis without evidence of diverticulitis. Discharge Plan Discharge Clinical Impression: Cholelithiasis Patient Disposition: Admitted As Inpatient Condition: Stable
[2022-04-10] MEDS: HYDROmorphone 0.5 mg/0.5 ml inj IVP (22:32)
--- NOTE | 2022-04-10 22:36 | P.IMHP_ITS ---
Hospitalist- H&P: HPI History of Present Illness Time Seen by Provider: 22:45 Date Seen: 04/11/22 Chief complaint: Vomiting Back Pain Chest Pain Headache Narrative: Rebekah Leroy is a 61 year old female who came in for sudden onset of back pain. She was doing well and had a grilled cheese sandwich and salad for dinner. Then at 6:45 p.m., she developed sudden onset of back pain. She also had bilateral upper abdomen and lower chest pain. She felt extremely uncomfortable. She had an episode similar to this about a year ago, and she thought it was her heart, so she was seen in an ER then as well. Her pain then lasted only a few hours, but this time her pain is not letting up. She's had no episodes in between. She had some vomiting this evening after the pain started. She is not nauseous now. Denies SOB, fever, chills. She tells me her sister just had her gallbladder out last week for symptomatic gallstones. Review of Systems Status of ROS: Reports: 10 or more systems reviewed and unremarkable except as noted in History and below [facility] Medical History (Updated 04/10/22 @ 23:36 by Goldie De La Torre MD) Cyst of left Bartholin's gland duct Diabetes mellitus Endometrial hyperplasia without atypia, complex (01/11/22) History of melanoma Hyperlipidemia Pap smear for cervical cancer screening Peroneal tendinitis, left leg Status post hysteroscopy (01/11/22) Surgical History (Updated 04/10/22 @ 23:36 by Goldie De La Torre MD) History of tonsillectomy Hx of melanoma excision Family History (Updated 04/10/22 @ 23:39 by Goldie De La Torre MD) Father Stroke Brother Graves disease Anxiety Depression Sister Carcinoma of ovary, stage 4 Symptomatic cholelithiasis High blood pressure Mother Heart disease Lung cancer Social History (Updated 04/10/22 @ 23:42 by Goldie De La Torre MD) Narrative: 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 , [place], with her samantha. They moved here from [place] 1 year ago. Quit smoking 1991. 1-2 alcoholic drinks per month. Had a glass of wine and half a beer this weekend. Denies recreational drug use. Full code. Smoking Status: Former smoker What tobacco products do you use: cigarettes Smoking quit date/years: >15 years ago How often do you have a drink containing alcohol: monthly or less How many standard drinks containing alcohol do you have on a typical day: 1 or 2 How often do you have six or more drinks on one occasion: Less than monthly AUDIT-C Alcohol total score: 2 Non-prescribed substance use: denies use Caffeine: No Meds Home Medications and Allergies Home Medications Medication Instructions Recorded Confirmed Type coenzyme Q10 400 mg capsule mg PO 01/24/22 01/24/22 History garlic 500 mg capsule 500 mg PO QDAY 01/24/22 04/10/22 History [id number] 04/10/22 History magnesium citrate 75 ml PO HS 04/10/22 04/10/22 History Allergies Allergy/AdvReac Type Severity Reaction Status Date / Time Tetracyclines Allergy Intermediate Verified 04/10/22 21:46 metformin AdvReac Intermediate itchy rash Verified 04/10/22 21:46 Exam Narrative: Exam Narrative: General: Appears uncomfortable, frowning, fidgeting and moving in the bed. Pleasant and appropriate. Awake alert oriented x3. HEENT: Normocephalic atraumatic, pupils equally round and reactive to light and accommodation. Oropharynx clear. Mucous membranes are moist. No JVD. Cardiovascular: Regular rate and rhythm. No murmurs, gallops, or rubs. Chest: No increased work of breathing. Clear to auscultation bilaterally. No crackles or wheezes. Abdomen: Bowel sounds present. Soft, nondistended, positive Bangura's sign, no rebound tenderness or guarding. No hepatosplenomegaly or masses. Extremities: No edema, no cyanosis or clubbing. Well-healed small surgical scar on the dorsal right midfoot. Skin: No jaundice, no pallor, no rashes. Const: Vital Signs, click to edit/add: Vital Signs - 24 hr 04/10/22 20:49 04/10/22 21:07 04/10/22 21:23 Temperature 95.9 F L Pulse Rate [Left P ulse Oximeter] 65 Respiratory Rate 22 Blood Pressure [Le ft Upper Arm] 187/90 H Blood Pressure [Ri ght Upper Arm] 184/102 H Pulse Oximetry 98 97 Oxygen Delivery Me thod Room Air 04/10/22 21:50 Temperature Pulse Rate [Left P ulse Oximeter] 51 L Respiratory Rate 14 Blood Pressure [Le ft Upper Arm] 149/68 H Blood Pressure [Ri ght Upper Arm] Pulse Oximetry 100 Oxygen Delivery Me thod Room Air Hospitalist - H&P: Result Labs Labs: Short CBC 04/10/22 Range/Units 21:02 WBC 11.84 H (4.50-11.00) K/uL Hgb 14.1 (12.0-16.0) gm/dL Hct 42.5 (33.0-51.0) % Plt Count 358 (140-440) K/uL BMP 04/10/22 21:02 Sodium 136 Potassium 4.1 Chloride 103 Carbon Dioxide 23 BUN 19 Creatinine 0.6 Glucose 203 H Calcium 9.4 Liver Function 04/10/22 Range/Units 21:02 Total Bilirubin 0.3 (0.1-1.5) mg/dL Direct Bilirubin 0.2 (0.0-0.5) mg/dL AST 26 (12-35) U/L ALT 25 (4-35) U/L Alkaline Phosphatase 115 (40-150) U/L Albumin 4.5 (3.3-5.0) g/dL Ordering Physician: Ying Flaherty MD Date of Service: 04/10/22 Procedure(s): CT aortic dissection Accession Number(s): [id number] cc: Ying Flaherty MD; Daija Johns PA-C~ For Patients: As a result of the Cures Act, medical imaging exams and procedure reports are released immediately into your electronic medical record. You may view this report before your referring provider. If you have questions, please contact your health care provider. INDICATION: Chest pain radiating to the back, vomiting.. TECHNIQUE: CT chest without contrast and CT chest, abdomen and pelvis acquired with 95 cc of Isovue 370 IV contrast, dissection protocol. COMPARISON: None. FINDINGS: CHEST: Cardiovascular structures: The unenhanced images demonstrate no evidence of aortic intramural thrombus. Thoracic aorta is normal in caliber without evidence of dissection. Heart size is normal. Mediastinum and romero: No mass or adenopathy. The calcified mediastinal node likely related to prior granulomatous disease. Lungs and pleura: Lungs are clear. Calcified granuloma in the right upper lobe (/). No pleural effusions. No pneumothorax. Chest wall and axilla: No mass or adenopathy. Bones: Unremarkable for age. ABDOMEN AND PELVIS: Limited arterial phase only images of the abdomen. Liver: Unremarkable. Gallbladder and bile ducts: 1.6 centimeter radiopaque stone at the neck of the gallbladder (6/215) the gallbladder is mildly distended. No surrounding inflammatory changes are identified. No wall thickening. No pericholecystic fluid. No intra or extrahepatic biliary ductal dilatation. Pancreas: Unremarkable. Spleen: Unremarkable. Adrenal glands: 1.7 centimeter nodule in the left adrenal gland measures 3.4 Hounsfield units on the noncontrast images consistent with adrenal adenoma. Right adrenal gland is unremarkable. Kidneys: No hydronephrosis or hydroureter. No renal stones identified. GI tract: Scattered colonic diverticulosis without evidence of diverticulitis. No bowel obstruction. Appendix is within normal limits. Tiny hiatal hernia. Vascular structures: Abdominal aorta is normal in caliber without evidence of dissection. Mesenteric arteries are patent. Incidentally noted 2 right renal arteries. Lymph nodes: Unremarkable. Miscellaneous: Unremarkable. No free air or significant free fluid. Pelvic Organs: Unremarkable. Bones: Unremarkable for age. IMPRESSION: No aortic dissection is identified. Cholelithiasis without evidence of cholecystitis. Left adrenal gland benign adenoma. Colonic diverticulosis without evidence of diverticulitis. Please note that all CT scans at this facility use dose modulation, iterative reconstruction, and/or weight-based dosing when appropriate to reduce radiation dose to as low as reasonably achievable. Dictated by Gareth Bailey MD @ 04/10/2022 10:12:49 PM (Electronically Signed) Assessment and Plan Assessment and plan (1) Cholelithiasis: Problem comment: symptomatic Status: Acute Assessment and Plan: Dr. Duque from general surgery is aware and is planning lap rebekah for tomorrow. No need for antibiotic at this time. * Admit * NPO * IVF maintenence * Recheck CBC, CMP in am * IV pain medication and antiemetic (2) Diabetes mellitus: Problem comment: type 2, diet controlled, 04/05/22 HgbA1c 6.4% Status: Chronic Assessment and Plan: If morning blood glucose from BMP is elevated, consider ISS.
[2022-04-10 22:47] VITALS: BP 133/67; RESP 14; TEMP 36.4; O2SAT 96
[2022-04-10 22:49] VITALS: O2SAT 96
[2022-04-11] VITALS (23 sets, daily range): BP systolic 102–167; BP diastolic 42–92; PULSE 51–96; RESP 12–24; TEMP 36.2–36.8; O2SAT 92–100
[2022-04-11 00:07] LABS: Troponin, Point-of-Care* 0.01 ng/ml (0.01-0.04)
[2022-04-11] MEDS: HYDROmorphone 0.5 mg/0.5 ml inj IVP ×3 (00:28→14:49)
[2022-04-11] MEDS: LACTATED RINGERS 1000 ML 1,000 ML 100 ML IV (00:32)
[2022-04-11] MEDS: ONDANSETRON 2 MG/ML inj 4 MG IVP ×2 (01:09→13:21)
--- NOTE | 2022-04-11 07:22 | PC.NURSE ---
Admitted last night with abdominal pain. Currently denies pain; states pain is gone for the last 4 hours. Denies nausea. Vitals are stable and satting fine on room air. Ambulating independently in the room. No further concerns noted
[2022-04-11 07:33] LABS: Basophils Percent Auto 0.3 % (0.0-3.0); Eosinophils Percent Auto 0.3 % (0.0-7.0); Hematocrit 39.2 % (33.0-51.0); Immature Granulocytes Abs Auto 0.03 K/uL (0.00-0.30); Lymphocytes Percent Auto 16.4 % (20-44); Mean Corpuscular HGB Conc 33 gm/dL (32-36); Mean Corpuscular Hemoglobin 27 pg (26-34); Mean Corpuscular Volume 82 fL (80-100); Monocytes Percent Auto 6.8 % (0.0-11.0); Neutrophils Percent Auto 75.9 % (42.0-72.0); Platelet Count* 318 K/uL (140-440); RDW Coefficient of Variation % 13.3 % (11.5-15.5); Red Blood Count 4.79 m/uL (4.00-5.20); White Blood Count* 11.49 K/uL (4.50-11.00)
[2022-04-11 07:40] LABS: Slide Review Reflex No
[2022-04-11 07:44] LABS: Albumin* 4.1 g/dL (3.3-5.0); Chloride* 106 mmol/L (96-114)
[2022-04-11 07:45] LABS: Sodium* 138 mmol/L (135-149)
[2022-04-11 07:47] LABS: Creatinine* 0.5 mg/dL (0.5-1.5); Est. Creatinine Clearance* 109.01; Estimated Glomerular Filt Rate 108 ml/min
[2022-04-11 07:48] LABS: Alanine Aminotransferase* 25 U/L (4-35); Alkaline Phosphatase* 94 U/L (40-150); Aspartate Amino Transferase* 23 U/L (12-35); Bilirubin Total* 0.3 mg/dL (0.1-1.5); Blood Urea Nitrogen* 11 mg/dL (7-30); Calcium* 8.9 mg/dL (8.4-10.6); Carbon Dioxide* 25 mmol/L (20-32); Glucose* 130 mg/dL (60-115)
--- NOTE | 2022-04-11 09:31 | P.GSCN_ITS ---
History of Present Illness Consult details Date Seen: 04/11/22 Consult date: 04/11/22 Narrative: 61-year-old female was admitted to the hospital with abdominal pain and I was asked by Dr. Flaherty to see her in consultation. Patient states that yesterday she developed right mid back and chest pain after eating dinner. She had a grilled cheese sandwich and potatoes for dinner. Her pain was described as crampy and was getting progressively worse. Patient tried to move around and went for a walk but could not get comfortable. She then started vomiting and vomited a total of 6 times. Her pain was persistent and patient decided to come to the emergency room. In the emergency room she was found to have an elevated WBC of 11. Liver function tests and her lipase were normal. Her basic metabolic panel was normal with the exception of elevated glucose. Patient is diabetic. An abdominal CT was obtained that showed no dilation in small large intestine. There was a large stone in the neck of the gallbladder with mildly distended gallbladder. There was no significant inflammation surrounding the gallbladder. Patient states that she had previous similar episodes of pain. When she moved to [place] as she had a similar episode that she can recall after eating fatty foods. Review of Systems Narrative: General: no fevers HENT: no problems swallowing CV: no shortness of breath Resp: no cough GI: See above : no dysuria, no increased urinary frequency, no hematuria Skin: no new rashes Musculoskeletal: + back pain radiating from the abdomen Neuro: no muscle weakness, patient recently injured her toe Psyche: no depression, no anxiety PFSH PFSH Medical History Cyst of left Bartholin's gland duct Diabetes mellitus Endometrial hyperplasia without atypia, complex (01/11/22) History of melanoma Hyperlipidemia Pap smear for cervical cancer screening Peroneal tendinitis, left leg Status post hysteroscopy (01/11/22) Surgical History History of tonsillectomy Hx of melanoma excision Family History Father Stroke Brother Graves disease Anxiety Depression Sister Carcinoma of ovary, stage 4 Symptomatic cholelithiasis High blood pressure Mother Heart disease Lung cancer Social History Narrative: 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 , [place], with her samantha. They moved here from [place] 1 year ago. Quit smoking 1991. 1-2 alcoholic drinks per month. Had a glass of wine and half a beer this weekend. Denies recreational drug use. Full code. Highest level of school completed/degree received: Bachelor's degree Smoking Status: Former smoker What tobacco products do you use: cigarettes Smoking quit date/years: >15 years ago How often do you have a drink containing alcohol: monthly or less How many standard drinks containing alcohol do you have on a typical day: 1 or 2 How often do you have six or more drinks on one occasion: Less than monthly AUDIT-C Alcohol total score: 2 Non-prescribed substance use: denies use Caffeine: No Gender Identity: female service: No Meds Home Medications and Allergies Home Medications Medication Instructions Recorded Confirmed Type garlic 500 mg capsule 1,000 mg PO BID 01/24/22 04/11/22 History coenzyme Q10 200 mg capsule (Co 200 mg PO DAILY 04/11/22 04/11/22 History Q-10) magnesium citrate 4 gram oral 4 g PO QHS 04/11/22 04/11/22 History packet plant sterol 1 cap PO DAILY 04/11/22 04/11/22 History turmeric 400 mg capsule 400 mg PO DAILY 04/11/22 04/11/22 History Allergies Allergy/AdvReac Type Severity Reaction Status Date / Time Tetracyclines Allergy Intermediate Verified 04/10/22 21:46 metformin AdvReac Intermediate itchy rash Verified 04/10/22 21:46 Exam Narrative: Exam Narrative: General appearance: Alert, cooperative, and in no distress Pulmonary: Chest symmetric, lungs clear bilaterally Cardiovascular Heart: Regular rate and rhythm, S1, S2, no murmurs/rubs/gallops Gastrointestinal Abdominal: soft, not tender to palpation, not distended, negative Bangura sign. Skin: Normal skin color, texture, and turgor. No rashes or lesions. Psychiatric: Alert, cooperative, normal affect. Const: Vital Signs, click to edit/add: Vital Signs - 24 hr 04/10/22 20:49 04/10/22 21:07 04/10/22 21:23 Temperature 95.9 F L Pulse Rate [Left P ulse Oximeter] 65 Respiratory Rate 22 Blood Pressure [Le ft Arm] Blood Pressure [Le ft Upper Arm] 187/90 H Blood Pressure [Ri ght Upper Arm] 184/102 H Pulse Oximetry 98 97 Oxygen Delivery Me thod Room Air 04/10/22 21:50 04/10/22 22:47 04/10/22 22:49 Temperature 97.6 F Pulse Rate [Left P ulse Oximeter] 51 L Respiratory Rate 14 14 Blood Pressure [Le ft Arm] 133/67 Blood Pressure [Le ft Upper Arm] 149/68 H Blood Pressure [Ri ght Upper Arm] Pulse Oximetry 100 96 96 Oxygen Delivery Me thod Room Air Room Air 04/11/22 02:35 04/11/22 03:00 04/11/22 07:30 Temperature 97.6 F 97.2 F L Pulse Rate [Left P ulse Oximeter] Respiratory Rate 14 14 18 Blood Pressure [Le ft Arm] 122/67 102/42 L Blood Pressure [Le ft Upper Arm] Blood Pressure [Ri ght Upper Arm] Pulse Oximetry 96 96 98 Oxygen Delivery Me thod Room Air Room Air Room Air 04/11/22 07:30 Temperature Pulse Rate [Left P ulse Oximeter] Respiratory Rate Blood Pressure [Le ft Arm] Blood Pressure [Le ft Upper Arm] Blood Pressure [Ri ght Upper Arm] Pulse Oximetry 98 Oxygen Delivery Me thod Results Labs Labs: Abnormal lab results 04/10/22 04/10/22 04/11/22 Range/Units 21:02 21:02 06:47 WBC 11.84 H 11.49 H (4.50-11.00) K/uL Neut % (Auto) 75.9 H (42.0-72.0) % Lymph % (Auto) 16.4 L (20-44) % Neut # (Auto) 8.70 H (1.7-7.0) K/uL Lymph # (Auto) 4.00 H (0.90-2.90) K/uL Glucose 203 H (60-115) mg/dL 04/11/22 Range/Units 06:47 WBC (4.50-11.00) K/uL Neut % (Auto) (42.0-72.0) % Lymph % (Auto) (20-44) % Neut # (Auto) (1.7-7.0) K/uL Lymph # (Auto) (0.90-2.90) K/uL Glucose 130 H (60-115) mg/dL Diabetes panel 04/10/22 04/10/22 04/11/22 Range/Units 21:02 21: 06:47 Sodium 136 138 (135-149) mmol/L Potassium 4.1 4.0 (3.6-5.1) mmol/L Chloride 103 106 (96-114) mmol/L Carbon Dioxide 23 25 (20-32) mmol/L BUN 19 11 (7-30) mg/dL Creatinine 0.6 0.5 (0.5-1.5) mg/dL Glucose 203 H 130 H (60-115) mg/dL Calcium 9.4 8.9 (8.4-10.6) mg/dL AST 26 23 (12-35) U/L ALT 25 25 (4-35) U/L Alkaline Phosphatase 115 94 (40-150) U/L Total Protein 7.9 7.0 (6.0-8.3) g/dL Albumin 4.5 4.1 (3.3-5.0) g/dL Calcium panel 04/10/22 04/10/22 04/11/22 Range/Units 21:02 21: 06:47 Calcium 9.4 8.9 (8.4-10.6) mg/dL Albumin 4.5 4.1 (3.3-5.0) g/dL Pituitary panel 04/10/22 04/11/22 Range/Units 21:02 06:47 Sodium 136 138 (135-149) mmol/L Potassium 4.1 4.0 (3.6-5.1) mmol/L Chloride 103 106 (96-114) mmol/L Carbon Dioxide 23 25 (20-32) mmol/L BUN 19 11 (7-30) mg/dL Creatinine 0.6 0.5 (0.5-1.5) mg/dL Glucose 203 H 130 H (60-115) mg/dL Calcium 9.4 8.9 (8.4-10.6) mg/dL Adrenal panel 04/10/22 04/10/22 04/11/22 Range/Units 21:02 21:02 06:47 Sodium 136 138 (135-149) mmol/L Potassium 4.1 4.0 (3.6-5.1) mmol/L Chloride 103 106 (96-114) mmol/L Carbon Dioxide 23 25 (20-32) mmol/L BUN 19 11 (7-30) mg/dL Creatinine 0.6 0.5 (0.5-1.5) mg/dL Glucose 203 H 130 H (60-115) mg/dL Calcium 9.4 8.9 (8.4-10.6) mg/dL Total Bilirubin 0.3 0.3 (0.1-1.5) mg/dL AST 26 23 (12-35) U/L ALT 25 25 (4-35) U/L Alkaline Phosphatase 115 94 (40-150) U/L Total Protein 7.9 7.0 (6.0-8.3) g/dL Albumin 4.5 4.1 (3.3-5.0) g/dL All other labs normal. Assessment and Plan Assessment and plan (1) Cholelithiasis: Problem comment: symptomatic Status: Acute Plan 61-year-old female with history of diabetes admitted to the hospital with symptomatic cholelithiasis. I discussed with the patient her laboratory and imaging findings. Patient has recurrent episodes of abdominal pain that are most likely related to symptomatic cholelithiasis. On presentation patient's pain was severe. Her EKG was normal and 2 troponins were negative. Patient's pain has now resolved but given her clinical presentation, her recurrent symptoms, and her history of diabetes, I think she would benefit from laparoscopic cholecystectomy. The procedure was discussed in detail. The risks associated the procedure including infection, bleeding, injury to intra-abdominal organs, injury to the common bile duct were all discussed with the patient, and she agreed to proceed.
--- NOTE | 2022-04-11 09:35 | PM.IMPN1 ---
Progress Note: A&P Assessment and plan (1) Cholelithiasis: Problem details: symptomatic Status: Acute (2) Diabetes mellitus: Problem details: type 2, diet controlled, 04/05/22 HgbA1c 6.4% Status: Chronic Plan 61-year-old female, generally healthy, admitted for cholecystitis. Patient will have a cholecystectomy with General surgery today. She is generally healthy, has diet controlled diabetes with a recent A1c of 6.4. She takes no prescription medications regularly, and has no history of anesthetic or surgical complications. No concerns from hospitalist team regarding surgery today. Time Spent With Patient Total time spent: 25 Subjective Date Seen: 04/11/22 Interval history: Rebekah is feeling good today, she is tolerating NPO status and pain medications. BG this morning was 130. No concerns for hospitalist team. Exam Narrative: Exam Narrative: GEN: Alert and oriented, answering questions appropriately HEENT: Normal external ears, EOMIs bilaterally, no scleral icterus CV: RRR, No concerning murmurs, rubs, or gallops R: LCTA bilaterally without concerning wheezing, rales, or rhonchi Ext: wwp, no concerning edema Skin: No concerning skin lesions or rashes on exposed skin Neuro: Nonfocal Psych: Appropriate Const: Vital Signs, click to edit/add: Vital Signs - 24 hr 04/10/22 20:49 04/10/22 21:07 04/10/22 21:23 Temperature 95.9 F L Pulse Rate [Left P ulse Oximeter] 65 Respiratory Rate 22 Blood Pressure [Le ft Arm] Blood Pressure [Le ft Upper Arm] 187/90 H Blood Pressure [Ri ght Upper Arm] 184/102 H Pulse Oximetry 98 97 Oxygen Delivery Me thod Room Air 04/10/22 21:50 04/10/22 22:47 04/10/22 22:49 Temperature 97.6 F Pulse Rate [Left P ulse Oximeter] 51 L Respiratory Rate 14 14 Blood Pressure [Le ft Arm] 133/67 Blood Pressure [Le ft Upper Arm] 149/68 H Blood Pressure [Ri ght Upper Arm] Pulse Oximetry 100 96 96 Oxygen Delivery Me thod Room Air Room Air 04/11/22 02:35 04/11/22 03:00 04/11/22 07:30 Temperature 97.6 F 97.2 F L Pulse Rate [Left P ulse Oximeter] Respiratory Rate 14 14 18 Blood Pressure [Le ft Arm] 122/67 102/42 L Blood Pressure [Le ft Upper Arm] Blood Pressure [Ri ght Upper Arm] Pulse Oximetry 96 96 98 Oxygen Delivery Me thod Room Air Room Air Room Air 04/11/22 07:30 Temperature Pulse Rate [Left P ulse Oximeter] Respiratory Rate Blood Pressure [Le ft Arm] Blood Pressure [Le ft Upper Arm] Blood Pressure [Ri ght Upper Arm] Pulse Oximetry 98 Oxygen Delivery Me thod Labs Labs: Laboratory Results - last 24 hr 04/10/22 04/10/22 04/10/22 21:02 21:02 21:02 WBC 11.84 H RBC 5.20 Hgb 14.1 Hct 42.5 MCV 82 MCH 27 MCHC 33 RDW Coeff of Bruno Plt Count 358 Neut % (Auto) 53.6 Lymph % (Auto) 34.1 [place] % (Auto) 7.3 Eos % (Auto) 4.1 Baso % (Auto) 0.4 Neut # (Auto) 6.30 Lymph # (Auto) 4.00 H [place] # (Auto) 0.90 Eos # (Auto) 0.50 Baso # (Auto) 0.00 Abs Immat Gran (auto) 0.10 Imm/Tot Granulo (auto) 0.5 ESR 9 Sodium 136 Potassium 4.1 Chloride 103 Carbon Dioxide 23 BUN 19 Creatinine 0.6 Estimated Creat Clear 90.84 Estimated GFR 103 Glucose 203 H Lactate Calcium 9.4 Total Bilirubin Direct Bilirubin AST ALT Alkaline Phosphatase C-Reactive Protein 1.0 Total Protein Albumin Lipase SARS-CoV-2 (PCR) Influenza Type A (PCR) Influenza Type B (PCR) RSV (PCR) POC Troponin I 04/10/22 04/10/22 04/10/22 21:02 21:02 21:02 WBC RBC Hgb Hct MCV MCH MCHC RDW Coeff of Bruno Plt Count Neut % (Auto) Lymph % (Auto) [place] % (Auto) Eos % (Auto) Baso % (Auto) Neut # (Auto) Lymph # (Auto) [place] # (Auto) Eos # (Auto) Baso # (Auto) Abs Immat Gran (auto) Imm/Tot Granulo (auto) ESR Sodium Potassium Chloride Carbon Dioxide BUN Creatinine Estimated Creat Clear Estimated GFR Glucose Lactate 1.6 Calcium Total Bilirubin 0.3 Direct Bilirubin 0.2 AST 26 ALT 25 Alkaline Phosphatase 115 C-Reactive Protein Total Protein 7.9 Albumin 4.5 Lipase 74 SARS-CoV-2 (PCR) Influenza Type A (PCR) Influenza Type B (PCR) RSV (PCR) POC Troponin I 0.01 04/10/22 04/10/22 04/11/22 21:10 23:20 06:47 WBC 11.49 H RBC 4.79 Hgb 13.0 Hct 39.2 MCV 82 MCH 27 MCHC 33 RDW Coeff of Bruno 13.3 Plt Count 318 Neut % (Auto) 75.9 H Lymph % (Auto) 16.4 L [place] % (Auto) 6.8 Eos % (Auto) 0.3 Baso % (Auto) 0.3 Neut # (Auto) 8.70 H Lymph # (Auto) 1.90 [place] # (Auto) 0.80 Eos # (Auto) 0.00 Baso # (Auto) 0.00 Abs Immat Gran (auto) 0.03 Imm/Tot Granulo (auto) ESR Sodium Potassium Chloride Carbon Dioxide BUN Creatinine Estimated Creat Clear Estimated GFR Glucose Lactate Calcium Total Bilirubin Direct Bilirubin AST ALT Alkaline Phosphatase C-Reactive Protein Total Protein Albumin Lipase SARS-CoV-2 (PCR) Negative SARS-CoV-2 Influenza Type A (PCR) Negative PCR FLU A Influenza Type B (PCR) Negative PCR FLU B RSV (PCR) Negative PCR RSV POC Troponin I 0.01 04/11/22 06:47 WBC RBC Hgb Hct MCV MCH MCHC RDW Coeff of Bruno Plt Count Neut % (Auto) Lymph % (Auto) [place] % (Auto) Eos % (Auto) Baso % (Auto) Neut # (Auto) Lymph # (Auto) [place] # (Auto) Eos # (Auto) Baso # (Auto) Abs Immat Gran (auto) Imm/Tot Granulo (auto) ESR Sodium 138 Potassium 4.0 Chloride 106 Carbon Dioxide 25 BUN 11 Creatinine 0.5 Estimated Creat Clear 109.01 Estimated GFR 108 Glucose 130 H Lactate Calcium 8.9 Total Bilirubin 0.3 Direct Bilirubin AST 23 ALT 25 Alkaline Phosphatase 94 C-Reactive Protein Total Protein 7.0 Albumin 4.1 Lipase SARS-CoV-2 (PCR) Influenza Type A (PCR) Influenza Type B (PCR) RSV (PCR) POC Troponin I
--- NOTE | 2022-04-11 12:21 | W.ANESCHARGE ---
Anesthesia Charges Start Date/Time Anesthesia Start Date: 04/11/22 Anesthesia Start Time: 11:50 Stop Date/Time Anesthesia Stop Date: 04/11/22 Anesthesia Stop Time: 13:16 Summary Emergency: No
[2022-04-11] MEDS: BUPIVACAINE 0.25% 30 ML INJECTION (12:44)
--- NOTE | 2022-04-11 13:01 | P.GSOP_ITS ---
Operative Note Date of procedure: 04/11/22 Type of Procedure: 1. Laparoscopic cholecystectomy. Procedure Description: After discussing the risks and benefits of the procedure, the patient signed informed consent.? The operative site was marked and the patient was brought to the operating room and placed on the operating table in supine position.? Care was taken to pad the patient's pressure points.?? The patient was then intubated by anesthesia.?? The operative site was then prepped and draped in the usual sterile fashion.? A time-out was then performed. A 5-mm laparoscopy port was placed in the left upper quadrant guided by a 5-mm laparoscope placed into a translucent trochar.~ Passage through the layers of the abdominal wall was visualized with the laparoscope.~ A pneumoperitoneum was established. A 0-degree 5-mm laparoscope was advanced into the abdomen. The abdomen was briefly surveyed, and no adhesions were noted. A 10-mm port were placed infraumbilically and two more 5 mm ports were placed on the right under direct visualization by laparoscope. The camera was then changed to 10 mm 30- degree scope and placed into the abdomen through the 10 mm port. The left upper quadrant port entrance was examined and no injury to intra-abdominal organs was identified. The gallbladder was identified, the fundus grasped and retracted cephalad. Omentum was adherent to the gallbladder, and those adhesions were taken down with hook cautery. The infundibulum was grasped and retracted laterally, exposing the peritoneum overlying the triangle of Calot. This was then divided and exposed in a blunt fashion and with hook cautery. Common bile duct was not identified but care was taken not to injure it. The cystic duct was clearly identified and bluntly dissected circumferentially. Cystic artery was identified and tissues around it were dissected off. There was a small vein posterior to the cystic duct. This was clearly going into the gallbladder. This vein was clipped with 5 mm clips and divided with scissors. The cystic artery and the cystic duct were clearly going into the gallbladder. The cystic artery was then doubly ligated with surgical clips on the patient's side and singly clipped on the gallbladder side and divided. The cystic duct was then similarly ligated with clips and divided as well. The gallbladder was dissected from the liver bed in retrograde fashion using hookcautery. A fair amount of acute edema was noted in the gallbladder wall. Bleeding was noted from the gallbladder fossa. This appeared to be coming from the liver. This bleeding was controlled with 5 mm clip and cautery. This seemed to control the bleeding however I elected to apply 1 gram of Jonathon to the gallbladder fossa.The gallbladder was placed into an Endo-Catch bag and removed through the infraumbilical incision. Surgical site was examined for bleeding. No further bleeding was seen in the surgical field. The fascia of the infraumbilical incision was then closed with 0-0 vicryl using Adis Ana needle under direct visualization. Pneumoperitoneum was completely reduced after viewing removal of the trocars under direct vision. The skin was then closed with 4-0 monocryl and steristrips were applied. Instrument, sponge, and needle counts were correct at closure and at the conclusion of the case. The patient was transferred to PACU in stable condition. Findings: acute cholecystitis Anesthesia: MERCED Surgeon: Shweta Duque MD Estimated blood loss (mL): 5 Condition: stable Disposition: PACU
[2022-04-11] MEDS: fentaNYL 100 MCG/2 ML inj 50 MCG IVP ×2 (13:20→13:26)
--- NOTE | 2022-04-11 13:44 | W.ANESCHARGE ---
Anesthesia Charges Start Date/Time Anesthesia Start Date: 04/11/22 Anesthesia Start Time: 11:50 Stop Date/Time Anesthesia Stop Date: 04/11/22 Anesthesia Stop Time: 13:16 Summary Emergency: No
--- NOTE | 2022-04-11 13:48 | SUR.PHASEI ---
D) PT. C/O NAUSEA AND PAIN - 01/16 I) ZOFRAN, FENTANYL, DILAUDID - SEE EMAR A) PT. STATES PAIN BETTER. P) CONTINUE TO MONITOR PT. COMFORT LEVEL AND TREAT PER ORDERS.
[2022-04-11] MEDS: METOCLOPRAMIDE HCL 5 MG/ML INJ 10 MG IVP (13:55)
--- NOTE | 2022-04-11 13:55 | SUR.PHASEI ---
ADD REGLAN FOR NAUSEA
[2022-04-11] MEDS: HYDROCODONE-ACETAMIN 5-325 MG 1 TAB PO (17:51)
--- NOTE | 2022-04-11 19:31 | PC.NURSE ---
shift [id number] pt this shift returned from surgery at 1410, denies nausea, pain at 5/10. Up to the bathroom with SB assist, tolerated well. Tolerating ice chips, then fluids, then soup. Incision distal to bellybutton dripped bright red blood onto gown and undergarments. Not actively draining, steri strips reinforced with 4x4 gauze and tape. Vitals remained stable. Oral pain meds started for pain 2/10 at rest and 5/10 with movement. Discharged at 1930, ambulated with spouse. All questions and concerns answered, IV dc'd.
== END 2022-04-11 19:31 | disposition home or self-care (01) ==
LOC: ED 22:02 → MEDSURG 23:00 → ED 23:03 → MEDSURG 23:11 → SS 04-11 11:38 → MEDSURG 04-11 11:38
PROVIDERS: Family Medicine; Surgery; Emergency Provider Family Medicine; PCP Physician Assistant Medical; Visit Provider Surgery
PROC: 0FT44ZZ Resection of Gallbladder, Percutaneous Endoscopic Approach (ICD-10-PCS; CPT 47562; principal; 2022-04-11 11:45)
DX: K80.00 Calculus of gallbladder with acute cholecystitis without obstruction (principal); E11.9 Type 2 diabetes mellitus without complications; K57.90 Diverticulosis of intestine, part unspecified, without perforation or abscess without bleeding; Z85.820 Personal history of malignant melanoma of skin; E78.5 Hyperlipidemia, unspecified
CPT/HCPCS: 47562; 00790; 36415; 71270; 74177; 80048; 80053; 80076; 83605; 83690; 84484; 85025; 85651; 86140; 87502; 87634; 87635; 88304; 93005; 94761; 99284; 99285; A9270; J0330; J1100; J1170; J2270; J2405; J2704; J2765; J3010; J3490; J7030; J7120; Q9967

== ENCOUNTER 2024-02-01 08:40 | Outpatient (CLI) | payer OTHER, SELFPAY ==
--- OUTSIDE RECORDS SUMMARY | 2024-02-01 08:49 | XMS_ITS | Clinical Summary ---
Author Organization [employer] [facility] Address [address] [place] [address] Care Team Providers Care Estate Agent Name Role Phone Rossana Barron MD Primary Care Provider [phone] Allergies Active Allergy Reactions Criticality Noted Date Comments Kiwi Other Low 11/06/2017 Mouth tingling Tetracycline Rash Medications Medication Sig Dispensed Refills Start Date End Date Status other (unlisted) 24 hr blood sugar and carb and sugar billie Active metFORMIN XR (GLUCOPHAGE XR) 500 mg oral Tablet Sustained Release 24HRIndications:Type 2 diabetes mellitus without complication, without long-term current use of insulin (HCC) Take 1 tablet (500 mg) by mouth once daily. 90 tablet 3 10/27/2020 Active triamcinolone acetonide (KENALOG) 0.1 % topical Ointment 12/11/2020 Active Active Problems Problem Noted Date Diagnosed Date Type 2 diabetes mellitus wit hout complication, without long-term current use of insulin 10/29/2020 Other insomnia 08/13/2018 Hx of dysplastic nevus 11/30/2016 Tubular adenoma 06/09/2014 History of malignant melanoma 12/08/2007 Resolved Problems Problem Noted Date Diagnosed Date Resolved Date Allergic headache 08/27/2018 12/24/2018 Gastrointestinal distress 08/27/2018 Bilateral leg edema 09/10/2008 12/25/19 19 Immunizations Name Administration Dates Next Due Hepatitis B Vaccine, IM, Deep lt (Recombivax) (Engerix-B) 03/11/2005,07/06/2004,06/02/2004 SARS-COV-2, IM (COVID-19)(Mo derna Booster) (Light Blue Label) 05/29/2021 Td, Tetanus-Diphtheria(Prese rv Free,>7yrs)(Tenivac)(Decavac) 10/14/1988 Td, Tetanus/Diphtheria, IM, >7 Yrs 07/10/1998 Tdap Vaccine, IM, (Adacel)(Boostrix) 04/07/2008 Tuberculosis (TB) Intradermal Test 05/02/2005, Family History Medical History Relation Name Comments Thyroid Disease Brother Graves Mental Health Father Stroke Father age 51 Breast Cancer Maternal Grandmother Alcohol Abuse Mother Heart Disease Mother age 57 Hypertension Mother Mental Health Mother depression Other Mother COPD Alcohol Abuse Paternal Grandfather Mental Health Paternal Grandfather Alcohol Abuse Sister #1 Hyperlipidemia Sister #1 Hypertension Sister #1 Mental Health Sister #1 depression Relation Name Status Comments Brother Father (Age 51) Maternal Grandmother Mother Paternal Grandfather Sister #1 Social History Tobacco Use Types Packs/Day Years Used Date Smoking Tobacco: Former Cigarettes Q uit: 07/10/1995 Smokeless Tobacco: Never Alcohol Use Standard Drinks/Week Comments Yes 0 (1 standard drink = 0.6 oz pur e alcohol) occasional Depression (PHQ-9) Answer Date Recorded Last PHQ-9 Score Not on file 12/23/2019 Thoughts of self harm Not at all 12/23/2019 Sex and Gender Information Value Date Recorded Sex Assigned at Not on file Gender Identity Not on file Sexual Orientation Not on file Last Filed Vital Signs Vital Sign Reading Time Taken Comments Blood Pressure 147/77 10/27/2020 2:35 PM CDT Pulse 66 10/27/2020 2:35 PM CDT Temperature 35.4 ??C (95.8 ??F) 12/23/2020 7:45 AM CD T Respiratory Rate 16 11/13/2017 10:13 AM CDT Oxygen Saturation 96% 02/26/2020 1:52 PM CDT Inhaled Oxygen Concentration - - Weight 96.2 kg (212 lb 1.6 oz) 12/23/2020 10:23 AM CDT Height 165.1 cm (5' 5) 12/23/2020 7:45 AM CDT Body Mass Index 35.3 12/23/2020 7:45 AM CDT Plan of Treatment Health Maintenance Due Date Last Done Comments Depression Screening 1974 CT Colonography 2007 Fecal Immunochemical DNA Test (FIT-DNA) 2007 Fecal Immunochemical Test (FIT) 2007 Varicella Zoster Sequential (1 of 2) 2012 Respiratory Syncytial Virus (RSV) Vaccine (1 - 1-dose 60+ series) 2022 Mammogram Standard 12/27/2022 12/27/2021, 0 12/27/2021, 12/23/2020, Additional history exists COVID-19 Vaccine (2 - season) 2023 05/29/2021 Influenza Vaccine (#1) 2024 Cervical Cancer Screening 10/05/20262021, 12/21/2018, 02/03/2011, Additional history exists HPV Testing 10/05/2026 10/05/2021, 02/03/2011 Lipids Standard 04/15/2027 04/15/2022, 09/08, 10/27/2020, Additional history exists DTaP/Tdap/Td Vaccines (5 - Td or Tdap) 09/16/2027 09/15/2017, 04/07/2008, 07/10/1998, Additional history exists Colonoscopy 02/29/2028 02/28/2023, 05/0 01/2018, 07/01/2014, Additional history exists Colorectal Cancer Screening 02/29/2028 Hepatitis C Testing Completed 11/29/2001 Hepatitis B Vaccines Completed 03/11/2005, 07/06/2004, 06/02/2004 HIB Vaccines Aged Out No longer eligi ble based on patient's age to complete this topic HIV Screen Discontinued HPV Vaccines Aged Out No longer eligi ble based on patient's age to complete this topic Hepatitis A Vaccines Aged Out No long er eligible based on patient's age to complete this topic Meningococcal Vaccines Aged Out No lo nger eligible based on patient's age to complete this topic Pneumococcal Vaccine (0-64 Years) Aged Out No longer eligible based on patient's age to complete this topic Procedures Procedure Name Priority Date/Time Associated Diagnosis Comments LIPID PANEL WITH DIRECT LDL Routine 04/15/2022 2:24 PM CDT MAMMOGRAM Routine 12/27/2021 3:59 PM CDT PAP TEST Routine 10/05/2021 8:50 AM CDT HUMAN PAPILLOMAVIRUS DETECTION WITH GENOTYPING, HIGH-RISK TYPES BY PCR Routine 10/05/2021 8:50 AM CDT COLONOSCOPY Routine 11/13/2017 8:40 AM CDT HEPATITIS C AB 11/29/2001 12:09 PM CDT from Last 3 Months or Most Recently Relevant to Health Maintenance Results * COLONOSCOPY (11/13/2017 8:40 AM CDT) 11/13/2017 8:40 AM CDT [facility] - 11/13/2017 9:39 AM CDT [facility] Patient Name: Rebekah Leroy Procedure Date: 11/13/2017 8:40 AM Date of : 1960 Admit Type: Outpatient Age: 57 Room: [facility] Gender: Female Note Status: Finalized Attending MD: Sebastien Galdamez MD Procedure: ?Colonoscopy Indications: ?High risk colon cancer surveillance: Personal history of ?colonic polyps Providers: ?Sebastien Galdamez MD Referring Provider: Cecil Ferraro MD (Referring MD) Medicines: ?Midazolam 5 mg IV, Fentanyl 50 micrograms IV Complications: ?No immediate complications. Procedure: ?After I obtained informed consent, the scope was passed ?under direct vision. Throughout the procedure, the ?patient's blood pressure, pulse, and oxygen saturations ?were monitored continuously. The [id number] was introduced ?through the anus and advanced to the cecum, identified by ?appendiceal orifice and ileocecal valve. The colonoscopy ?was performed without difficulty. The patient tolerated ?the procedure well. The quality of the bowel preparation ?was good. Findings: ? Hemorrhoids were found on perianal exam. ? Two sessile polyps were found in the cecum. The polyps were 5 to 6 mm in ? size. These polyps were removed with a cold snare. Resection and ? retrieval were complete. ? Multiple diverticula were found in the sigmoid colon, descending colon ? and transverse colon. ? The exam was otherwise without abnormality. Moderate Sedation: ? Moderate (conscious) sedation was administered by the endoscopy nurse ? and supervised by the endoscopist. The following parameters were ? monitored: oxygen saturation, heart rate, blood pressure, and response ? to care. Total physician intraservice time was 27 minutes. Impression: ? - Hemorrhoids found on perianal exam. ?- Two 5 to 6 mm polyps in the cecum, removed with a cold ?snare. Resected and retrieved. ?- Diverticulosis in the sigmoid colon, in the descending ?colon and in the transverse colon. ?- The examination was otherwise normal. Recommendation: ? - Discharge patient to home. ?- High fiber diet. ?- Await pathology results. ?- If the polyp(s) are adenomatous, then a colonoscopy in ?three to five years (histology pending) is recommended. ?Otherwise a colonoscopy in five years is recommended. ?- Return to referring physician. Sebastien Galdamez MD 11/13/2017 9:39:02 AM This report has been signed electronically. All medications administered and tests ordered during the procedure were at the direction of the provider performing the procedure. Unless otherwise noted, estimated blood loss was minimal, no specimens were obtained, and all proceduralists have been documented. Number of Addenda: 0 Note Initiated On: 11/13/2017 8:40 AM Cecil Ferraro MD GI PROCEDURES Performing Organization Address [facility] Co de Phone Number [employer] END[facility] * HEPATITIS C ANTIBODY (11/29/2001 12:09 PM CDT) HEPATITIS C ANTIBODY NONREACTIVE NONR [facility] HEPATITIS C ANTIBODY A NONREACTIVE RESULT INDICATES THE ABSENCE OF DETECTABLE LEVELS OF ANTIBODY TO HEPATITIS C VIRUS. AT PRESENT, THERE IS NO RECOGNIZED STANDARD FOR EVALUATING THE PRESENCE OR ABSENCE OF HEPATITIS C VIRUS ANTIBODIES INHUMAN BLOOD. THEREFORE, THIS RESULT DOES NOT PRECLUDE EXPOSURE TO OR INFECTION WITH HEPATITIS C VIRUS. [facility] 11/29/2001 12:0 9 PM CDT Marnie Zazueta MD LAB SEROLOGY ORDERAB LES Performing Organization Address [facility] Co de Phone Number [employer] [address] [place] [address] from Last 3 Months or Most Recently Relevant to Health Maintenance Care Teams Estate Agent Relationship Specialty Start Date End Date Rossana Barron MD [address] [place] [phone] PCP - General Family Medicine 11/26/19 Additional Source Comments PLEASE NOTE: Replies to this message will not be received.[facility] and [facility] Includes [facility]
--- OUTSIDE RECORDS SUMMARY | 2024-02-01 08:50 | XMS_ITS | Encounter Summary ---
Author Organization [facility] [employer] [facility] Address [address] [place] [address] Care Team Providers Care General Milling Superintendent Name Role Phone Cecil Ferraro MD Primary Care Provider [phone]- [phone] No Personal, Physician Primary Care Provider Geri vailable Cecil Ferraro MD Primary Care Provider + Cecil Ferraro MD Unavailable [phone] No Personal, Physician Unavailable Unavailab le Cecil Ferraro MD Unavailable [phone] Alejandrina Lake MD Unavailable Unavailable Alejandrina Lake MD Unavailable Unavailable Rossana Parekh MD Primary Care Provider Rossana Barron MD Primary Care Provider [phone] Encounter Details Date Type Department Care Team (Late st Contact Info) Description 07/14/2006 Clinic Encounter [facility] Obstetrics/Gynecology [address] [place], [place] [id number] Marti Licea PA Social History Tobacco Use Types Packs/Day Years Used Date Smoking Tobacco: Never Assessed Sex and Gender Information Value Date Recorded Sex Assigned at Not on file Gender Identity Not on file Sexual Orientation Not on file documented as of this encounter Progress Notes * Marti Licea PA - 07/14/2006 12:00 AM [facility] Rebekah Leroy [id number] 07/14/2006 Attending Physician: Alejandrina Lake MD SUBJECTIVE: Patient is a 46-year-old female here concerned about a one-month history of some vaginal discomfort on and off. She said sometimes it will be pruritic. Sometimes she will have a bit of a clearish discharge. There is often burning after intercourse. Sometimes an odor after intercourse. Her periods have started to get a little bit irregular. 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 She has had some on and off dysuria as well. Her urine has been a bit cloudy. No fevers, chills, abdominal pain, back pain, urinary frequency or urgency. ALLERGIES: Tetracycline. MEDICATIONS: No current medications. SOCIAL HISTORY: She is a nonsmoker. OBJECTIVE: VITAL SIGNS: Height is 5 feet 4 inches. Weight is 184 pounds. Blood pressure is 108/70. : Normal external genitalia. She does have a milky yellow discharge in the vaginal vault. Wet mount was obtained. Cervix itself was free of any lesions or erythema. Bimanual exam: Small firm uterus without any adnexal tenderness or enlargement. ASSESSMENT: 1. VAGINAL DISCHARGE. 2. REPORTED DYSURIA. PLAN: We will go ahead and get a UA with urine culture. Also will await vaginal smear results. We can contact the patient on her cell phone at [phone]. It is okay to leave a message and she prefers a prescription to be called into [facility]. EDMUNDO Trent-Akhil/maranda A A Doc#: [id number] cc: T NURSE PRACTITIONER documented in this encounter Plan of Treatment Not on file documented as of this encounter Procedures Procedure Name Priority Date/Time Associated Diagnosis Comments WET PREPARATION STAT 07/14/2006 9:25 AM ADULT NURSE PRACTITIONER URINALYSIS, MICROSCOPIC ONLY Routine 07/14/2006 9:20 AM ADULT NURSE PRACTITIONER URINALYSIS WITH REFLEX TO MICROSCOPIC Routine 07/14/2006 9:20 AM ADULT NURSE PRACTITIONER documented in this encounter Results * WET PREP (07/14/2006 9:25 AM ADULT NURSE PRACTITIONER) SPECIMEN DESCRIPTION GENITAL [facility] SPECIAL REQUESTS NONE [facility] WET PREP PH [facility] Comment: 5.5 PH MAY BE FALSELY ELEVATED DUE TO THE PRESENCE OF RBCS NUMEROUS WBCS NUMEROUS EPITHELIAL CELLS NUMEROUS BACTERIA NEGATIVE FOR TRICHOMONAS NEGATIVE FOR CLUE CELLS NEGATIVE FOR YEAST NEGATIVE WHIFF TEST FEW RBCS REPORT STATUS FINAL 07/14/2006 [facility] GENITAL STRUCTURE / Unknown 07/14/2006 9:25 AM ADULT NURSE PRACTITIONER 07/14/2006 9:26 AM ADULT NURSE PRACTITIONER [facility] MICROBIOLOGY OR DERABLES [facility] * MICROSCOPIC URINE (07/14/2006 9:20 AM ADULT NURSE PRACTITIONER) UR WBC 1-2 0 - 5 /HPF [facility] UR RBC 3-5 0 - 2 /HPF [facility] EPI CELLS 1-2 <5 /HPF [facility] CASTS NONE NONE /LPF [facility] BACTERIA NEGATIVE NEG /HPF [facility] 07/14/2006 9:20 AM ADULT NURSE PRACTITIONER 07/14/2006 9:21 AM ADULT NURSE PRACTITIONER [facility] URINE ORDERABLE S Performing Organization Address [facility] Co de Phone Number [facility] * (ABNORMAL) URINALYSIS-CHEMICAL STRIP (07/14/2006 9:20 AM ADULT NURSE PRACTITIONER) COLOR YELLOW [facility] SURINDER CLEAR [facility] UR SPECIFIC GRAVITY 1.015 1.015 - 1.025 [facility] UR GLUCOSE NEGATIVE NEG [facility] UR BILI NEGATIVE NEG [facility] KETONE, URINE NEGATIVE NEG [facility] UR OCCULT BLOOD TRACE(A) NEG [facility] URINE PH 6.5 5.0 - 7.0 [facility] UR ALBUMIN NEGATIVE NEG [facility] UROBIL 0.2 0.2 - 1.0 EU/DL [facility] NITRITE NEGATIVE NEG [facility] LEUKO EST NEGATIVE NEG [facility] 07/14/2006 9:20 AM ADULT NURSE PRACTITIONER 07/14/2006 9:21 AM ADULT NURSE PRACTITIONER [facility] URINE ORDERABLE S GEORGIE RICHARD documented in this encounter Visit Diagnoses Not on filedocumented in this encounter Additional Health Concerns Infection Onset Date Last Indicated Resolved Time COVID-19 Rule Out 12/12/2019 12/12/2019 12/14/2019 12:07 PM CDT COVID-19 Rule Out 02/26/2020 02/26/2020 02/27/2020 9:11 PM CDT documented as of this encounter Care Teams General Milling Superintendent Relationship Specialty Start Date End Date Cecil Ferraro MD [address] [place] [address] PCP - General 03/23/10 12/20/18 No Personal, Physician PCP - General 05/20/09 03/22/10 Cecil Ferraro MD [address] [address] PCP - General 04/24/09 05/19/09 Rossana Parekh MD PCP - General Family Medicine 12/21/18 11/25/19 Rossana Barron MD [address] [place] [phone] PCP - General Family Medicine 11/26/19 Cecil Ferraro MD [address] [place] [address] 08/07/17 12/23/18 No Personal, Physician 08/07/17 12/23/18 Cecil Ferraro MD [address] [address] 08/07/17 12/23/18 Alejandrina Lake MD 08/07/17 12/23/18 Alejandrina Lake MD 08/07/17 12/23/18 documented as of this encounter Additional Source Comments PLEASE NOTE: Replies to this message will not be received.[facility]
--- OUTSIDE RECORDS SUMMARY | 2024-02-01 08:50 | XMS_ITS | Encounter Summary ---
Author Organization [facility] [employer] [facility] Address [address] [place] [address] Care Team Providers Care Business Services Assistant Name Role Phone Cecil Ferraro MD Primary Care Provider [phone] No Personal, Physician Primary Care Provider Geri vailable Cecil Ferraro MD Primary Care Provider + Cecil Ferraro MD Unavailable [phone] No Personal, Physician Unavailable Unavailab le Cecil Ferraro MD Unavailable Alejandrina Lake MD Unavailable Unavailable Alejandrina Lake MD Unavailable Unavailable Rossana Parekh MD Primary Care Provider Rossana Barron MD Primary Care Provider [phone] Encounter Details Date Type Department Care Team (Late st Contact Info) Description 01/09/[address] [id number] Social History Tobacco Use Types Packs/Day Years Used Date Smoking Tobacco: Never Assessed Sex and Gender Information Value Date Recorded Sex Assigned at Not on file Gender Identity Not on file Sexual Orientation Not on file documented as of this encounter Procedure Notes * OLIMPIA REY - 01/09/2002 3:14 PM CDTAssociated Order(s): STRESS TEST TRACINGS - S documented in this encounter Plan of Treatment Not on file documented as of this encounter Procedures Procedure Name Priority Date/Time Associated Diagnosis Comments STRESS TEST TRACINGS - S 01/09/2002 3:14 PM CDT documented in this encounter Results * STRESS TEST TRACINGS - S (01/09/2002 3:14 PM CDT) Anatomical Region Laterality Modality Other Narrative Procedure Note ROXI, SCAN - 01/09/2002 3:14 PM CDT Scan Roxi PROCEDURE NOTE documented in this encounter Visit Diagnoses Not on filedocumented in this encounter Additional Health Concerns Infection Onset Date Last Indicated Resolved Time COVID-19 Rule Out 12/12/2019 12/12/2019 12/14/2019 12:07 PM CDT COVID-19 Rule Out 02/26/2020 02/26/2020 02/27/2020 9:11 PM CDT documented as of this encounter Care Teams Business Services Assistant Relationship Specialty Start Date End Date Cecil Ferraro MD [address] [place], [place] [address] PCP - General 03/23/10 12/20/18 No Personal, Physician PCP - General 05/20/09 03/22/10 Cecil Ferraro MD [facility] [address] [place] [address] PCP - General 04/24/09 05/19/09 Rossana Parekh MD PCP - General Family Medicine 12/21/18 11/25/19 Rossana Barron MD [address] [place] [phone] PCP - General Family Medicine 11/26/19 Cecil Ferraro MD [address] [place] [address] 08/07/17 12/23/18 No Personal, Physician 08/07/17 12/23/18 Cecil Ferraro MD [address] [place] [place] [address] 08/07/17 12/23/18 Alejandrina Lake MD 08/07/17 12/23/18 Alejandrina Lake MD 08/07/17 12/23/18 documented as of this encounter Additional Source Comments PLEASE NOTE: Replies to this message will not be received.[facility]
--- OUTSIDE RECORDS SUMMARY | 2024-02-01 08:50 | XMS_ITS | Encounter Summary ---
Author Organization [facility] [employer] [facility] Address [address] [place] [address] Care Team Providers Care Locomotive Engineer Diesel Name Role Phone Cecil Ferraro MD Primary Care Provider [phone] No Personal, Physician Primary Care Provider Geri vailable Cecil Ferraro MD Primary Care Provider + Cecil Ferraro MD Unavailable [phone] No Personal, Physician Unavailable Unavailab le Cecli Ferraro MD Unavailable [phone] Alejandrina Lake MD Unavailable Unavailable Alejandrina Lake MD Unavailable Unavailable Rossana Parekh MD Primary Care Provider Rossana Barron MD Primary Care Provider [phone] Encounter Details Date Type Department Care Team (Late st Contact Info) Description 03/06/2007 HIM Assembling Fabricator Generic Assembling Fabricator [address] [place] [address] Social History Tobacco Use Types Packs/Day Years Used Date Smoking Tobacco: Never Assessed Sex and Gender Information Value Date Recorded Sex Assigned at Not on file Gender Identity Not on file Sexual Orientation Not on file documented as of this encounter Plan of Treatment Not on file documented as of this encounter Visit Diagnoses Not on filedocumented in this encounter Additional Health Concerns Infection Onset Date Last Indicated Resolved Time COVID-19 Rule Out 12/12/2019 12/12/2019 12/14/2019 12:07 PM CDT COVID-19 Rule Out 02/26/2020 02/26/2020 02/27/2020 9:11 PM CDT documented as of this encounter Care Teams Locomotive Engineer Diesel Relationship Specialty Start Date End Date Cecil Ferraro MD [address] [place] [address] PCP - General 03/23/10 12/20/18 No Personal, Physician PCP - General 05/20/09 03/22/10 Cecil Ferraro MD [facility] [address] [place], [place] [phone] PCP - General 04/24/09 05/19/09 Rossana Parekh MD PCP - General Family Medicine 12/21/18 11/25/19 Rossana Barron MD [address] [place] [phone] PCP - General Family Medicine 11/26/19 Cecil Ferraro MD [address] [place], [place] [address] 08/07/17 12/23/18 No Personal, Physician 08/07/17 12/23/18 Cecil Ferraro MD [address] [address] 08/07/17 12/23/18 Alejandrina Lake MD 08/07/17 12/23/18 Alejandrina Lake MD 08/07/17 12/23/18 documented as of this encounter Additional Source Comments PLEASE NOTE: Replies to this message will not be received.[facility]
--- OUTSIDE RECORDS SUMMARY | 2024-02-01 08:50 | XMS_ITS | Encounter Summary ---
Author Organization [facility] [employer] [facility] Address [address] [place] [address] Care Team Providers Care Cap Blocker Name Role Phone Cecil Ferraro MD Primary Care Provider [phone] No Personal, Physician Primary Care Provider Geri vailable Cecil Ferraro MD Primary Care Provider + Cecil Ferraro MD Unavailable [phone] No Personal, Physician Unavailable Unavailab le Cecil Ferraro MD Unavailable [phone] Alejandrina Lake MD Unavailable Unavailable Alejandrina Lake MD Unavailable Unavailable Rossana Parekh MD Primary Care Provider Rossana Barron MD Primary Care Provider [phone] Encounter Details Date Type Department Care Team (Late st Contact Info) Description 12/01/2006 HIM Eye Dropper Assembler Generic Eye Dropper Assembler [address] [place] [address] Social History Tobacco Use Types Packs/Day Years [...] documented as of this encounter Care Teams Cap Blocker Relationship Specialty Start Date End Date Cecil Ferraro MD [address] [place] [address] PCP - General 03/23/10 12/20/18 No Personal, Physician PCP - General 05/20/09 03/22/10 Cecil Ferraro MD [facility] [address] [place], [place] [phone] PCP - General 04/24/09 05/19/09 Rossana Parekh MD PCP - General Family Medicine 12/21/18 11/25/19 Rossana Barron MD [address] [place] [phone] PCP - General Family Medicine 11/26/19 Cecil Ferraro MD [address] [place], [place] [address] 08/07/17 12/23/18 No Personal, Physician 08/07/17 12/23/18 Cecil Ferraro MD [address] [address] 08/07/17 12/23/18 Alejandrina Lake MD 08/07/17 12/23/18 Alejandrina Lake MD 08/07/17 12/23/18 documented as of this encounter Additional Source Comments PLEASE NOTE: Replies to this message will not be received.[facility]
--- OUTSIDE RECORDS SUMMARY | 2024-02-01 08:50 | XMS_ITS | Encounter Summary ---
Author Organization [facility] [employer] [facility] Address [address] [place] [address] Care Team Providers Care Cracking Still Operator Name Role Phone Cecil Ferraro MD Primary Care Provider [phone]- [phone] No Personal, Physician Primary Care Provider Geri vailable Cecil Ferraro MD Primary Care Provider + Cecil Ferraro MD Unavailable [phone] No Personal, Physician Unavailable Unavailab le Cecil Ferraro MD Unavailable [phone] Alejandrina Lake MD Unavailable Unavailable Alejandrina Lake MD Unavailable Unavailable Rossana Parekh MD Primary Care Provider Rossana Barron MD Primary Care Provider [phone] Encounter Details Date Type Department Care Team (Late st Contact Info) Description 01/06/2006 Clinic Encounter [facility] Obstetrics/Gynecology [address] [place], [place] [id number] Alejandrina Lake MD Social History Tobacco Use Types Packs/Day Years Used Date Smoking Tobacco: Never Assessed Sex and Gender Information Value Date Recorded Sex Assigned at Not on file Gender Identity Not on file Sexual Orientation Not on file documented as of this encounter Progress Notes * Alejandrina Lake MD - 01/06/2006 12:00 AM [facility] Rebekah Leroy [id number] 01/06/2006 Attending Physician: Alejandrina Lake MD SUBJECTIVE: Rebekah is here for routine health maintenance. Rebekah is a 45 year old III Para II. PAST MEDICAL HISTORY: MEDICAL: History of melanoma. SURGERIES: Resection of melanoma from the right foot and tonsillectomy. ALLERGIES: Tetracycline. FAMILY HISTORY: Positive for stroke in her father at age 51. Graves disease in her brother. Alcoholism and depression in her sister. REVIEW OF SYSTEMS: She is a nonsmoker. Uses alcohol minimally. Minimal caffeine use. Wears seatbelts regularly. Has a smoke detector and carbon monoxide detector in the home. Does breast self exam. Traveled to [place] in July. No concerns about domestic violence. Her periods are varying between 21 and 28 day cycles. She generally bleeds about four days with one three hour period of fairly heavy bleeding. This pattern has been present for about a year. She has some fatigue and occasional night sweats. She has menstrual headaches, occasional swollen ankles and heartburn and slight incontinence. These have been consistent symptoms for many years and are not new concerns. She continues to see dermatology for follow up for her melanoma. Last fasting lipid profile 2002. Colon cancer screening 2003. Last dT 1998. Mammogram 2005. OBJECTIVE: GENERAL: Height 5 feet 5 inches. Weight 184. Blood pressure 110/60. HEENT: Negative. Oropharynx normal without erythema or exudate. Nose is clear. NECK: Without thyromegaly or lymphadenopathy. CHEST: Clear to auscultation. CARDIOVASCULAR: S1, S2 normal with a regular rate and rhythm. No murmurs heard. BREASTS: Without mass or axillary lymphadenopathy. No surface skin changes or retractions are seen. ABDOMEN: Soft, nontender without hepatosplenomegaly. EXTREMITIES: Normal without edema or lesions. SKIN: No lesions seen. PELVIC: External genitalia, vagina and cervix are normal. Normal urethra. Liquid cytology Pap smear was obtained. Bimanual: Normal size uterus with no adnexal masses. Normal mobility is present. Bladder and rectovaginal exams are normal. ASSESSMENT: 1. ROUTINE HEALTH MAINTENANCE. PLAN: Future routine health maintenance. Alejandrina Lake MD/cdg P A Doc#: [id number] cc: documented in this encounter Plan of Treatment Not on file documented as of this encounter Procedures Procedure Name Priority Date/Time Associated Diagnosis Comments UNKNOWN Routine 01/06/2006 3:25 PM CDT documented in this encounter Results * UNKNOWN (01/06/2006 3:25 PM CDT) PT INS MEDICARE,CAID,LALITO MPUS(Y NO [facility] ICD-9 CODE V72.3 [facility] HISTORY/SYMPTOMS (FREE TE PHYSICAL [facility] SCR PAP [id number] (Y/N) YES [facility] DIAG PAP [id number] (Y/N) NO [facility] HIGH RISK (Y/N) NO [facility] SPECIMEN SOURCE (CERV, VAG CERVIX [facility] LMP DATE (FREE TE 01.01.06 [facility] (Y/N) NO [facility] POST (Y/N) NO [facility] POST MENOPAUSAL (Y/N) NO [facility] HYSTERECTOMY (Y/N) NO [facility] HORMONE REPLACEMENT THERAPY (Y NO [facility] ABNORMAL BLEEDING (Y/N) NO [facility] 01/06/2006 3:25 PM CDT 01/06/2006 4:21 PM CDT Alejandrina Lake [facility] Organization Address City/State/ZIP Co de Phone Number [facility] documented in this encounter Visit Diagnoses Not on filedocumented in this encounter Additional Health Concerns Infection Onset Date Last Indicated Resolved Time COVID-19 Rule Out 12/12/2019 12/12/2019 12/14/2019 12:07 PM CDT COVID-19 Rule Out 02/26/2020 02/26/2020 02/27/2020 9:11 PM CDT documented as of this encounter Care Teams Cracking Still Operator Relationship Specialty Start Date End Date Cecil Ferraro MD [address] [place] [address] PCP - General 03/23/10 12/20/18 No Personal, Physician PCP - General 05/20/09 03/22/10 [place] [address] PCP - General 04/24/09 05/19/09 Rossana Parekh MD PCP - General Family Medicine 12/21/18 11/25/19 Rossana Barron MD [address] [place] [id number] PCP - General Family Medicine 11/26/19 Cecil Ferraro MD [address] [place] [address] 08/07/17 12/23/18 No Personal, Physician 08/07/17 12/23/18 Cecil Ferraro MD [facility] [address] [place] [address] 08/07/17 12/23/18 Alejandrina Lake MD 08/07/17 12/23/18 Alejandrina Lake MD 08/07/17 12/23/18 documented as of this encounter Additional Source Comments PLEASE NOTE: Replies to this message will not be received.[facility] and [facility]
--- OUTSIDE RECORDS SUMMARY | 2024-02-01 08:50 | XMS_ITS | Clinical Summary ---
Author Organization [employer] [facility] [facility] Address [place], [place] [address] Care Team Providers Care Home Lighting Adviser Name Role Phone Julieth Callejas MD Primary Care Provider [phone] Allergies Active Allergy Reactions Criticality Noted Date Comments Metformin Rash High 10/05/2021 Tetracycline Rash,Photosensitivity 07/11/2010 Medications Medication Sig Dispensed Refills Start Date End Date Status FreeStyle Jamel 3 Sensor for continuous blood glucose monitor (CGM)Indications:Ty pe 2 diabetes mellitus without complication, without long-term current use of insulin (HC) To be used to read blood sugars, follow web marketing specialist directions. 9 Each 3 03/14/2023 Active sensor for continuous blood glucose monitor (CGM)Indications:Ty pe 2 diabetes mellitus without complication, without long-term current use of insulin (HC) To be used to read blood sugars, follow web marketing specialist directions. 9 Each 3 03/14/2023 Active run85-wzgvpnurq-rcp a-taur-inos 350-250 mg/7.8 gram powd Mix in liquid then take by mouth. 07/28/2023 Active cholecalciferol, Vitamin D3, (Vitamin D-3) 5,000 unit tab tablet Take 1 Tablet (5,000 units) by mouth once daily. 07/28/2023 Active Active Problems Problem Noted Date Diagnosed Date History of colon polyps 02/28/2023 Overview: Colonoscopy 11/2017 2-SSA, repeat in 5 years Colonoscopy 02/2023 diverticulosis, repeat in 5 years Pap smear for cervical cancer screening 09/08/19 Overview: 09/2021-NIL/HPVneg. Plan: Pap/HPV due 09/2026 Type 2 diabetes mellitus wit hout complication, without long-term current use of insulin 10/29/2020 Mixed hyperlipidemia 01/04/2018 Overview: Mixed hyperlipidemia Hyperlipidemia Generalized anxiety disorder 09/14/2017 Atopic dermatitis 11/05/2013 Overview: Eczema Left Peroneal tendonitis 07/11/2010 History of malignant melanoma 12/08/2007 Left edema of subcutaneous tissues of distal lef t calf Immunizations Name Administration Dates Next Due COVID-19 vaccine (Moderna 10 0mcg/0.5mL) PF, MDV 08/17/2020,07/20/2020 Hepatitis B (Adult) 03/11/2005,07/06/2004,2003 Td (Age >=7 Years) 07/10/1998,10/14/1988 Td, Preservative Free (age >= 7 Years) 9 Tdap 09/15/2017,04/07/2008,04/04/2008 Family History Medical History Relation Name Comments Anxiety disorder Brother Depression Brother Stroke Father Heart Disease Mother Lung cancer Mother Cancer-ovarian Sister metastasis Cancer-breast No Family History Relation Name Status Comments Brother Father (Age 51) Mother Sister Alive Social History Tobacco Use Types Packs/Day Years Used Date Smoking Tobacco: Former Cigarettes Q uit: 07/10/1991 Smokeless Tobacco: Never Tobacco Cessation:Counseling Given: Not Answered Alcohol Use Standard Drinks/Week Comments No 0 (1 standard drink = 0.6 oz pur e alcohol) PHQ-2 Answer Date Recorded PHQ-2 TOTAL SCORE 2 07/28/2023 Social Connections Answer Date Recorded Frequency of Communication with Friends and Fami ly 0 07/28/2023 Financial Resource Strain Answer Date R ecorded Difficulty of Paying Living Expenses 3 07/28/2023 Difficulty of Paying Living Expenses Not on file 07/28/2023 Food Insecurity Answer Date Recorded Worried About Running Out of Food in the Last Ye ar 1 07/28/2023 Transportation Needs Answer Date Record ed Lack of Transportation (Medical) 1 07/28/2023 Housing Stability Answer Date Recorded Unable to Pay for Housing in the Last Year 1 07/28/2023 Sex and Gender Information Value Date Recorded Sex Assigned at Not on file Gender Identity Not on file Sexual Orientation Not on file Obstetrics History Last Filed Vital Signs Vital Sign Reading Time Taken Comments Blood Pressure 124/78 07/28/2023 12:13 PM [employer] Pulse 76 07/28/2023 12:13 PM [employer] Temperature - - Respiratory Rate 16 02/28/2023 9:15 AM CDT Oxygen Saturation 93% 02/28/2023 9:15 AM CDT Inhaled Oxygen Concentration - - Weight 97.5 kg (215 lb) 07/28/2023 12:13 PM [employer] with boots Height 166.4 cm (5' 5.5) 01/05/2022 9:38 AM CDT Body Mass Index 35.23 01/05/2022 9:38 AM CDT Plan of Treatment Health Maintenance Due Date Last Done Comments Pneumococcal series for age 6-64 (1 of 2 - PCV) 1968 HIV for age 15-65 1977 Hepatitis C screening for ag e 18-79 1980 Zoster (shingles) series for age 50+ (1 of 2) 2012 BMI (ht and wt on same day) for age 18+ 01/05/2023 01/05/2022, 10/05/2021 COVID-19 vaccine series (2022-24 season) 2023 02/10/2022, 05/29/2021, 08/17/2020, Additional history exists Mammogram for age 45-75 03/03/2024 03/03/2023, 12/27 Influenza for age 50-64 03/10/2024 Depression screening for age 12+ 07/28/2024 07/28/2023, 10/07/2021, 10/05/2021 Pap test for age 21-65 10/05/2026 10/05/2021, 2021 Tetanus booster 09/16/2027 09/15/2017, 03/11, 04/04/2008, Additional history exists Lipids for age 45-75 07/28/2028 07/28/2023, 11/16/2022, 04/15/2022, Additional history exists Colonoscopy through age 75 02/28/203302/28, 02/28/2023, 02/28/2023 Tdap Completed 09/15/2017, 03/11, 04/04/2008 Procedures Procedure Name Priority Date/Time Associated Diagnosis Comments LIPID PANEL W REFLEX MEASURED LDL Add On 07/28/2023 12:00 PM [employer] Type 2 diabetes mellitus without complication, without long-term current use of insulin (HC) XR MAMMO BILAT SCREENING Routine 03/03/2023 10:15 AM CDT Encounter for screening mammogram for malignant neoplasm of breast COLONOSCOPY SCREENING Routine 02/28/2023 7:51 AM CDT Screening for colon cancer HPV THIN PREP Routine 10/05/2021 8:50 AM CDT Screening for cervical cancer from Last 3 Months or Most Recently Relevant to Health Maintenance Results * (ABNORMAL) LIPID PANEL W REFLEX MEASURED LDL (07/28/2023 12:00 PM [employer]) CHOLESTEROL,TOTAL 231(H) 100 - 199 mg/dL 07/29/2023 6:[address] [facility] Comment: Cholesterol, Total Reference Ranges Desirable <200 mg/dL Borderline 200-239 mg/dL High >=240 mg/dL TRIGLYCERIDES 200(H) <150 mg/dL 07/29/2023 6:[address] [facility] HDL CHOLESTEROL 51 >40 mg/dL 6:20 AM [facility] [employer] [facility] NON-HDL CHOLESTEROL 180(H) <145 mg/dl 07/29/2023 6:[address] [facility] CHOL/HDL RATIO 4.53(H) <4.50 07/29/2023 6:[address] [facility] LDL CHOLESTEROL 140(H) <=130 mg/dL 07/29/2023 6:[address] [facility] VLDL CHOLESTEROL 40(H) <=30 mg/dL 07/29/2023 6:[address] [facility] PROVIDER ORDERED STATUS RANDOM 07/29/2023 6:[address] [facility] Blood BLOOD SPECIMEN / Unknown Venipuncture / Unknown 07/28/2023 12:00 PM [employer] 07/28/2023 12:00 PM [employer] Julieth Callejas MD CHEMISTRY [facility] [address] [place] [address], * XR MAMMO BILAT SCREENING (03/03/2023 10:15 AM CDT) Anatomical Region Laterality Modality BREASTS, Breast Left, Breast Right Bilateral Mammography Impressions 03/06/2023 1:37 PM CDT ??There is no radiographic evidence for malignancy. ??Recommend annual mammograms. MAMMOGRAM ASSESSMENT: ??ACR 1 Negative PATIENTS: You will also receive a letter with your examination results in an easy to read format. ??If you have questions about your results, please contact your referring provider. Narrative 03/06/2023 1:37 PM CDT For Patients: As a result of the Century Cures Act, medical imaging exams and procedure reports are released immediately into your electronic medical record. You may view this report before your referring provider. If you have questions, please contact your health care provider. XR MAMMO BILAT SCREENING [[id number]] CLINICAL HISTORY: ??This is an asymptomatic 62 y.o. patient. INDICATION FOR EXAM: Mammogram Screening. TECHNIQUE: CC & MLO views were obtained. ??This study was evaluated with the assistance of Computer-Aided Detection. COMPARISON FILM: Yes 12/27/21 [facility] ?? FINDINGS: ??The breasts are almost entirely fatty. There are no dominant masses, suspicious micro calcifications or areas of architectural distortion. Daija WYATT MAMMO * COLONOSCOPY (02/28/2023 7:51 AM CDT) 02/28/2023 7:51 AM CDT Narrative Transcriptions Casa Hatch MD - 02/28/2023 9:02 AM CDT Patient Name: Rebekah Leroy Procedure Date: 02/28/2023 Gender: Female Date of : 1960 Admit Type: Outpatient Procedure: Colonoscopy Proceduralist: Casa Hatch MD , Ange Peña (Nurse), Janee Jones (Nurse) Referring MD: Daija Odell Indications/Pre-Op Diagnosis: High risk colon cancer surveillance:Personal history of sessile serrated colon polyp(less than 10 mm in size) with no dysplasia, Last colonoscopy: November 2017 Medications: Fentanyl 100 micrograms IV, Midazolam 2 mgIV, The level of sedation administered wasmoderate Procedure Description: The patient had risks, benefits and alternatives explained to andgave informed consent. The patient had a stable cardiopulmonary status and judged an adequate candidate for conscious sedation. The endoscope [id number] was passed through the anus andadvanced to the cecum, identified by appendiceal orifice and ileocecal valve.The colonoscopy was performed without difficulty. The patient toleratedthe procedure well. The quality of the bowel preparation was good. The ileocecal valve, appendiceal orifice, and rectum were photographed. Complications: No immediate complications. Estimated Blood Loss & Specimen: Estimated blood loss: none. Specimen collected - Yes and sent to Laboratory Findings: The perianal and digital rectal examinations were normal. Scattered small-mouthed diverticula were found in the sigmoidcolon. The exam was otherwise without abnormality. Impressions/Post-Op Diagnosis: - Diverticulosis in the sigmoid colon. - The examination was otherwise normal. - No specimens collected. Recommendation: - Patient has a contact number available for emergencies. The signsand symptoms of potential delayed complications were discussed with the patient. Return to normal activities tomorrow. Written discharge instructions were provided to the patient. - Resume previous diet. - Continue present medications. - Repeat colonoscopy in 5 years for surveillance. Moderate Sedation: A time out was performed before the procedure. Moderate (conscious) sedation was administered by the endoscopy nurse and supervised bythe endoscopist. The following parameters were monitored: oxygensaturation, heart rate, blood pressure, EKG, CO2, respiratory rate, adequacy of pulmonary ventilation and reponse to care. Please refer to the patient's medical record flowsheets and nursing notes for moderate sedation details. Total physician intraservice time was 15 minutes. Casa Hatch MD 02/28/2023 9:02:29 AM This report has been signed electronically. Note Initiated On: 02/28/2023 7:51 AM Procedure Code(s): --- Professional --- 33387, Colonoscopy, flexible; diagnostic, including collection of specimen(s) bybrushing or washing, when performed (separateprocedure) Diagnosis Code(s): --- Professional --- Z86.010, Personal history of colonicpolyps K57.30, Diverticulosis of large intestine without perforation or abscess withoutbleeding CPT copyright 2021 [employer]. All rights reserved. The codes documented in this report are preliminary and upon zone maintenance technician reviewmay be revised to meet current compliance requirements. Scope In: 8:42:34 AM Scope Withdrawal Time 0 hours 7 minutes 51 seconds Scope Out: 8:55:20 AM Casa Hatch MD PROCEDURE ORD * HPV HIGH RISK (10/05/2021 8:50 AM CDT) TYPE 16 Negative Negative 10/07/2021 10:54 AM CDT [facility] [employer] [facility] TYPE 18 Negative Negative 10/07/2021 10:54 AM CDT [facility] OTHER HIGH RISK TYPES Negative Negative 10/07/2021 10:54 AM CDT [facility] TR[facility] LABORATORY Other (Cervical) Non-Blood / Unknown 10/05/2021 8:50 AM CDT 10/05/2021 3:32 PM CDT Narrative [facility] LAB[facility]ATORY-[facility] LAB[facility]ORY - 10/07/2021 10:54 AM CDT HPV types 16, 18, 31, 33, 35, 39, 45, 51, 52, 56, 58, 59, 66 and 68 DNA were undetectable or below the pre-set threshold. Methodology: Kwadwo Archie 4800 HPV Test Daija WYATT MICROBIOLOGY [facility] LAB[facility]ATORY-[facility] LAB[facility]ATORY [address] [place] [address], from Last 3 Months or Most Recently Relevant to Health Maintenance Care Teams Home Lighting Adviser Relationship Specialty Start Date End Date Julieth Callejas MD [address] [place] [address] PCP - General Internal Medicine 07/11/23
--- OUTSIDE RECORDS SUMMARY | 2024-02-01 08:50 | XMS_ITS | Encounter Summary ---
Author Organization [facility] [employer] [facility] Address [address] [place] [address] Care Team Providers Care Block Breaker Name Role Phone Cecil Ferraro MD Primary Care Provider [phone] No Personal, Physician Primary Care Provider Geri vailable Cecil Ferraro MD Primary Care Provider + Cecil Ferraro MD Unavailable [phone] No Personal, Physician Unavailable Unavailab le Cecil Ferraro MD Unavailable [phone] Alejandrina Lake MD Unavailable Unavailable Alejandrina Lake MD Unavailable Unavailable Rossana Parekh MD Primary Care Provider Rossana Barron MD Primary Care Provider [phone] Encounter Details Date Type Department Care Team (Late st Contact Info) Description 03/29/2007 [facility] [employer] [address] [place] [address] Social History Tobacco Use Types Packs/Day Years [...] documented as of this encounter Care Teams Block Breaker Relationship Specialty Start Date End Date Cecil Ferraro MD [address] [place] [address] PCP - General 03/23/10 12/20/18 No Personal, Physician PCP - General 05/20/09 03/22/10 Cecil Ferraro MD [facility] [address] [place], [place] [id number] PCP - General 04/24/09 05/19/09 Rossana Parekh MD PCP - General Family Medicine 12/21/18 11/25/19 Rossana Barron MD [address] [place] [phone] PCP - General Family Medicine 11/26/19 Cecil Ferraro MD [address] [place], [place] [address] 08/07/17 12/23/18 No Personal, Physician 08/07/17 12/23/18 Cecil Ferraro MD [address] [address] 08/07/17 12/23/18 Alejandrina Lake MD 08/07/17 12/23/18 Alejandrina Lake MD 08/07/17 12/23/18 documented as of this encounter Additional Source Comments PLEASE NOTE: Replies to this message will not be received.[facility] and [facility]
--- OUTSIDE RECORDS SUMMARY | 2024-02-01 08:50 | XMS_ITS | Encounter Summary ---
Author Organization [facility] [employer] [facility] Address [address] [place] [id number] Care Team Providers Care Director Process Improvement Name Role Phone Cecil Ferraro MD Primary Care Provider [phone] No Personal, Physician Primary Care Provider Geri vailable Cecil Ferraro MD Primary Care Provider + Cecil Ferraro MD Unavailable [phone] No Personal, Physician Unavailable Unavailab le Cecil Ferraro MD Unavailable Alejandrina Lake MD Unavailable Unavailable Alejandrina Lake MD Unavailable Unavailable Rossana Parekh MD Primary Care Provider [phone] Rossana Barron MD Primary Care Provider [phone] Encounter Details Date Type Department Care Team (Late st Contact Info) Description 12/23/2003 [facility] [address] [place], [place] [address], [place] [phone] Unknown, [place] [address] Social History Tobacco Use Types Packs/Day Years [...] documented as of this encounter Care Teams Director Process Improvement Relationship Specialty Start Date End Date Cecil Ferraro MD [address] [place] [id number] PCP - General 03/23/10 12/20/18 No Personal, Physician PCP - General 05/20/09 03/22/10 Cecil Ferraro MD [facility] [address] [place] [address] PCP - General 04/24/09 05/19/09 Rossana Parekh MD PCP - General Family Medicine 12/21/18 11/25/19 Rossana Barron MD [facility] [address] [place] [id number] PCP - General Family Medicine 11/26/19 Cecil Ferraro MD [address] [place] [address] 08/07/17 12/23/18 No Personal, Physician 08/07/17 12/23/18 Cecil Ferraro MD [address] [address] 08/07/17 12/23/18 Alejandrina Lake MD 08/07/17 12/23/18 Alejandrina Lake MD 08/07/17 12/23/18 documented as of this encounter Additional Source Comments PLEASE NOTE: Replies to this message will not be received.[facility] and [facility]
--- OUTSIDE RECORDS SUMMARY | 2024-02-01 08:50 | XMS_ITS | Encounter Summary ---
Author Organization [facility] Address [address] [place] [address] Care Team Providers Care Transmission System Operator Name Role Phone Cecil Ferraro MD Primary Care Provider [phone] No Personal, Physician Primary Care Provider Geri vailable Cecil Ferraro MD Primary Care Provider + Cecil Ferraro MD Unavailable [phone] No Personal, Physician Unavailable Unavailab le Cecil Ferraro MD Unavailable [phone] Alejandrina Lake MD Unavailable Unavailable Alejandrina Lake MD Unavailable Unavailable Rossana Parekh MD Primary Care Provider Rossana Barron MD Primary Care Provider [phone] Encounter Details Date Type Department Care Team (Late st Contact Info) Description 01/16/2007 HIM Imaging Assistant Generic Imaging Assistant [address] [place] [address] Social History Tobacco Use Types Packs/Day Years [...] documented as of this encounter Care Teams Transmission System Operator Relationship Specialty Start Date End Date Cecil Ferraro MD [address] [place] [address] PCP - General 03/23/10 12/20/18 No Personal, Physician PCP - General 05/20/09 03/22/10 Cecil Ferraro MD [facility] [address] [place], [place] [id number] PCP - General 04/24/09 05/19/09 Rossana Parekh MD PCP - General Family Medicine 12/21/18 11/25/19 Rossana Barron MD [address] [place] [phone] PCP - General Family Medicine 11/26/19 Cecil Ferraro MD [address] [place], [place] [address] 08/07/17 12/23/18 No Personal, Physician 08/07/17 12/23/18 Cecil Ferraro MD [address] [address] 08/07/17 12/23/18 Alejandrina Lake MD 08/07/17 12/23/18 Alejandrina Lake MD 08/07/17 12/23/18 documented as of this encounter Additional Source Comments PLEASE NOTE: Replies to this message will not be received.[facility] and [facility]
--- OUTSIDE RECORDS SUMMARY | 2024-02-01 08:50 | XMS_ITS | Referral Summary ---
Author Organization [facility] Address [address] [place] [address] Care Team Providers Care Heating Repair Technician Name Role Phone Rossana Barron MD Primary Care Provider [phone] Allergies Active Allergy Reactions Criticality Noted Date [...] (Adacel)(Boostrix) 04/07/2008 Tuberculosis (TB) Intradermal Test 05/02/2005, Social History Tobacco Use Types Packs/Day Years [...] Mass Index 35.3 12/23/2020 7:45 AM CDT Functional Status Functional Status Response Date of Assess ment Are you deaf or do you have serious difficulty h earing? No 11/23/2020 Are you blind or do you have serious difficulty seeing, even when wearing glasses? No 12/21/2018 Do you have serious difficul ty walking or climbing stairs? No 12/21/2018 Do you have difficulty dressing or bathing? No 12/21/2018 Do you have difficulty doing errands alone such as visiting a doctor's office or shopping because of a physical, mental, or emotional condition? No 12/21/2018 Cognitive Status Response Date of Assessm ent Do you have trouble concentr ating, remembering, or making decisions because of a physical, mental, or emotional condition? No 12/21/2018 Plan of Treatment Not on file Procedures Procedure Name Priority Date/Time Associated Diagnosis [...] 8:40 AM CDT) 11/13/2017 8:40 AM CDT Narrative [facility] - 11/13/2017 9:39 AM CDT [facility] Patient Name: Rebekah Leroy Procedure Date: 11/13/2017 8:40 AM Date of : 1960 Admit Type: Outpatient Age: 57 Room: [facility] Gender: Female Note Status: Finalized Attending MD: [...] and oxygen saturations ?were monitored continuously. The [id number] was introduced ?through the anus and advanced [...] 8:40 AM Cecil Ferraro MD GI PROCEDURES [employer] ENDO * HEPATITIS C ANTIBODY (11/29/2001 12:09 PM CDT) HEPATITIS C ANTIBODY NONREACTIVE NONR [facility] [employer] [facility] HEPATITIS C ANTIBODY A NONREACTIVE RESULT INDICATES THE ABSENCE OF DETECTABLE LEVELS OF ANTIBODY TO HEPATITIS C VIRUS. AT PRESENT, THERE IS NO RECOGNIZED STANDARD FOR EVALUATING THE PRESENCE OR ABSENCE OF HEPATITIS C VIRUS ANTIBODIES INHUMAN BLOOD. THEREFORE, THIS RESULT DOES NOT PRECLUDE EXPOSURE TO OR INFECTION WITH HEPATITIS C VIRUS. [facility] [employer] [facility] 11/29/2001 12:0 9 PM CDT Marnie Zazueta MD LAB SEROLOGY ORDERAB LES [facility] [address] [place] [address] from Last 3 Months or Most Recently Relevant to Health Maintenance Care Teams Heating Repair Technician Relationship Specialty Start Date End Date Rossana Barron MD [address] [place] [phone] PCP - General Family Medicine 11/26/19 Additional Source Comments PLEASE NOTE: Replies to this message will not be received.[facility] and [facility]
--- OUTSIDE RECORDS SUMMARY | 2024-02-01 08:50 | XMS_ITS | Encounter Summary ---
Author Organization [facility] Address [address] [place] [address] Care Team Providers Care Supervisor Remelt Name Role Phone Cecil Ferraro MD Primary Care Provider [phone] No Personal, Physician Primary Care Provider Geri vailable Cecil Ferraro MD Primary Care Provider + Cecil Ferraro MD Unavailable [phone] No Personal, Physician Unavailable Unavailab le Cecil Ferraro MD Unavailable [phone] Alejandrina Lake MD Unavailable Unavailable Alejandrina Lake MD Unavailable Unavailable Rossana Parekh MD Primary Care Provider Rossana Barron MD Primary Care Provider [phone] Encounter Details Date Type Department Care Team (Late st [facility] Info) Description 03/05/[address] [id number] Social History Tobacco Use Types Packs/Day Years Used Date Smoking Tobacco: Never Assessed Sex and Gender Information Value Date Recorded Sex Assigned at Not on file Gender Identity Not on file Sexual Orientation Not on file documented as of this encounter Procedure Notes * OLIMPIA REY - 03/05/1996 1:54 PM CDTAssociated Order(s): OUTSIDE LABS - S documented in this encounter Plan of Treatment Not on file documented as of this encounter Procedures Procedure Name Priority Date/Time Associated Diagnosis Comments OUTSIDE LABS - S 03/05/1996 1:54 PM CDT documented in this encounter Results * OUTSIDE LABS - S (03/05/1996 1:54 PM CDT) Narrative Procedure Note ROXI, SCAN - 03/05/1996 1:54 PM CDT Scan Roxi PROCEDURE NOTE documented in this encounter Visit Diagnoses Not on filedocumented in this encounter Additional Health Concerns Infection Onset Date Last Indicated Resolved Time COVID-19 Rule Out 12/12/2019 12/12/2019 12/14/2019 12:07 PM CDT COVID-19 Rule Out 02/26/2020 02/26/2020 02/27/2020 9:11 PM CDT documented as of this encounter Care Teams Supervisor Remelt Relationship Specialty Start Date End Date Cecil Ferraro MD [address] [place], [place] [address] PCP - General 03/23/10 12/20/18 No Personal, Physician PCP - General 05/20/09 03/22/10 Cecil Ferraro MD [facility] [address] [place], [place] [phone] PCP - General 04/24/09 05/19/09 Rossana Parekh MD PCP - General Family Medicine 12/21/18 11/25/19 Rossana Barron MD [address] [place] [phone] PCP - General Family Medicine 11/26/19 Cecil Ferraro MD [address] [place] [address] 08/07/17 12/23/18 No Personal, Physician 08/07/17 12/23/18 Cecil Ferraro MD [address] [place] [address] 08/07/17 12/23/18 Alejandrina Lake MD 08/07/17 12/23/18 Alejandrina Lake MD 08/07/17 12/23/18 documented as of this encounter Additional Source Comments PLEASE NOTE: Replies to this message will not be received.[facility] and [facility]
--- OUTSIDE RECORDS SUMMARY | 2024-02-01 08:50 | XMS_ITS | Encounter Summary ---
Author Organization [facility] [employer] Address [address] [place] [address] Care Team Providers Care Cryptoanalysis Teacher Name Role Phone Cecil Ferraro MD Primary Care Provider [phone] No Personal, Physician Primary Care Provider Geri vailable Cecil Ferraro MD Primary Care Provider + Cecil Ferraro MD Unavailable [phone] No Personal, Physician Unavailable Unavailab le Cecil Ferraro MD Unavailable [phone] Alejandrina Lake MD Unavailable Unavailable Alejandrina Lake MD Unavailable Unavailable Rossana Parekh MD Primary Care Provider Rossana Barron MD Primary Care Provider [phone] Encounter Details Date Type Department Care Team (Late st Contact Info) Description 03/22/2007 Clinic Encounter [facility] Obstetrics/Gynecology [address] [place] [address] Alejandrina Lake MD Social History Tobacco Use Types Packs/Day Years Used Date Smoking Tobacco: Never Assessed Sex and Gender Information Value Date Recorded Sex Assigned at Not on file Gender Identity Not on file Sexual Orientation Not on file documented as of this encounter Progress Notes * Alejandrina Lake MD - 03/29/2007 12:00 AM CDT [facility] Rebekah Leroy [id number] 03/29/2007 Attending Physician: Alejandrina Lake MD SUBJECTIVE: Rebekah is here for routine health maintenance. She is a 46 year old III Para II. PAST MEDICAL HISTORY: MEDICAL: History of asthma. History of PTSD. History of melanoma. SURGERIES: Oral surgery, tonsillectomy, in 2001. Removal of a melanoma from her right foot in 2002. ALLERGIES: Tetracycline (rash). CURRENT MEDICATIONS: None. FAMILY HISTORY: Positive for hypertension, cardiovascular disease, hyperlipidemia and alcohol problems. Her father has had mental health problems and stroke. She has one sister with an alcohol problem, hypertension and hyperlipidemia and one brother with thyroid disease. 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 She is a nonsmoker having quit in 1995. She does not drink alcohol appreciably. She exercises regularly by walking, biking and yoga. She wears seatbelt regularly and has no unlocked weapons in her home. Her last dT was in 1998. She had a colonoscopy which was normal in 2003 and mammogram in 2006 which was normal. OBJECTIVE: GENERAL: Height 5 feet 5 inches. Weight 176. BMI 29. Blood pressure 108/64. HEENT: Negative. Pupils equal, round, reactive to light and accommodation. Oropharynx normal without erythema or exudate. Ears: Impacted wax is present in both ears. Discussed. Nose is clear. NECK: Without thyromegaly or [...] HEALTH MAINTENANCE. PLAN: Future routine health maintenance. Serum glucose and lipid profile were done today. Her PHQ summary was normal. Alejandrina Lake MD/brandieg P A Doc#: [id number] cc: documented in this encounter Plan of Treatment Not on file documented as of this encounter Procedures Procedure Name Priority Date/Time Associated Diagnosis Comments GLUCOSE Routine 03/29/2007 2:12 PM CDT LIPID PANEL Routine 03/29/2007 2:12 PM CDT documented in this encounter Results * (ABNORMAL) LIPID PROFILE (03/29/2007 2:12 PM CDT) CHOLESTEROL 169 0 - 200 MG/DL [facility] TRIGLYCERIDES 151(H) 30 - 150 MG/DL [facility] HDL CHOLESTEROL 46 >40 MG/DL [facility] CALCULATED VLDL 30 MG/DL [facility] CALCULATED LDL 93 MG/DL [facility] Comment: ATP III GUIDELINES (LDL) OPTIMAL: ?<100 MG/DL ABOVE OPTIMAL: 100-129 MG/DL BORDERLINE HI: 130-159 MG/DL HIGH: ?160-189 MG/DL VERY HIGH: ?>190 MG/DL 03/29/2007 2:12 PM CDT 03/29/2007 2:13 PM CDT Alejandrina Lake MD LAB CHEMISTRY ORDERA BLES Performing Organization Address [facility] Co de Phone Number [facility] * GLUCOSE (03/29/2007 2:12 PM CDT) GLUCOSE 83 70 - 100 MG/DL [facility] 03/29/2007 2:12 PM CDT 03/29/2007 2:13 PM CDT Alejandrina Lake MD LAB CHEMISTRY ORDERA BLES [facility] documented in this encounter Visit Diagnoses Not on filedocumented in this encounter Additional Health Concerns Infection Onset Date Last Indicated Resolved Time COVID-19 Rule Out 12/12/2019 12/12/2019 12/14/2019 12:07 PM CDT COVID-19 Rule Out 02/26/2020 02/26/202002/2602/27/2020 9:11 PM CDT documented as of this encounter Care Teams Cryptoanalysis Teacher Relationship Specialty Start Date End Date Cecil Ferraro MD [address] [place] [address] PCP - General 03/23/10 12/20/18 No Personal, Physician PCP - General 05/20/09 03/22/10 Cecil Ferraro MD [facility] [address] [place] [address] PCP - General 04/24/09 05/19/09 Rossana Parekh MD PCP - General Family Medicine 12/21/18 11/25/19 Rossana Barron MD [address] [place] [phone] PCP - General Family Medicine 11/26/19 Cecil Ferraro MD [address] [place] [address] 08/07/17 12/23/18 No Personal, Physician 08/07/17 12/23/18 Cecil Ferraro MD [address] [address] 08/07/17 12/23/18 Alejandrina Lake MD 08/07/17 12/23/18 Alejandrina Lake MD 08/07/17 12/23/18 documented as of this encounter Additional Source Comments PLEASE NOTE: Replies to this message will not be received.[facility] and [facility]
--- OUTSIDE RECORDS SUMMARY | 2024-02-01 08:50 | XMS_ITS | Encounter Summary ---
Author Organization [facility] Address [address] [place] [address] Care Team Providers Care Cable Driller Name Role Phone Cecil Ferraro MD Primary Care Provider [phone] No Personal, Physician Primary Care Provider Geri vailable Cecil Ferraro MD Primary Care Provider + Cecil Ferraro MD Unavailable [phone] No Personal, Physician Unavailable Unavailab le Cecil Ferraro MD Unavailable [phone] Alejandrina Lake MD Unavailable Unavailable Alejandrina Lake MD Unavailable Unavailable Rossana Parekh MD Primary Care Provider Rossana Barron MD Primary Care Provider [phone] Encounter Details Date Type Department Care Team (Late st [facility] Info) Description 11/07/[address] [id number] Social History Tobacco Use Types Packs/Day Years Used Date Smoking Tobacco: Never Assessed Sex and Gender Information Value Date Recorded Sex Assigned at Not on file Gender Identity Not on file Sexual Orientation Not on file documented as of this encounter Procedure Notes * OLIMPIA REY - 11/07/2006 1:21 PM CDTAssociated Order(s): DERMATOPATHOLOGY - S documented in this encounter Plan of Treatment Not on file documented as of this encounter Procedures Procedure Name Priority Date/Time Associated Diagnosis Comments DERMATOPATHOLOGY - S 11/07/2006 1:21 PM CDT documented in this encounter Results * DERMATOPATHOLOGY - S (11/07/2006 1:21 PM CDT) Narrative Procedure Note ROXI, SCAN - 11/07/2006 1:21 PM CDT Scan Roxi PROCEDURE NOTE documented in this encounter Visit Diagnoses Not on filedocumented in this encounter Additional Health Concerns Infection Onset Date Last Indicated Resolved Time COVID-19 Rule Out 12/12/2019 12/12/2019 12/14/2019 12:07 PM CDT COVID-19 Rule Out 02/26/2020 02/26/2020 02/27/2020 9:11 PM CDT documented as of this encounter Care Teams Cable Driller Relationship Specialty Start Date End Date Cecil Ferraro MD [address] [place], [place] [address] PCP - General 03/23/10 12/20/18 No Personal, Physician PCP - General 05/20/09 03/22/10 Cecil Ferraro MD [address] [id number] PCP - General 04/24/09 05/19/09 Rossana Parekh MD PCP - General Family Medicine 12/21/18 11/25/19 Rossana Barron MD [address] [place] [phone] PCP - General Family Medicine 11/26/19 Cecil Ferraro MD [address] [place] [address] 08/07/17 12/23/18 No Personal, Physician 08/07/17 12/23/18 Cecil Ferraro MD [address] [place] [address] 08/07/17 12/23/18 Alejandrina Lake MD 08/07/17 12/23/18 Alejandrina Lake MD 08/07/17 12/23/18 documented as of this encounter Additional Source Comments PLEASE NOTE: Replies to this message will not be received.[facility] and [facility]
--- OUTSIDE RECORDS SUMMARY | 2024-02-01 08:50 | XMS_ITS | Encounter Summary ---
Author Organization [facility] Address [address] [place] [address] Care Team Providers Care Automatic Teller Machine Servicer Name Role Phone Cecil Ferraro MD Primary Care Provider [phone] No Personal, Physician Primary Care Provider Geri vailable Cecil Ferraro MD Primary Care Provider + Cecil Ferraro MD Unavailable [phone] No Personal, Physician Unavailable Unavailab le Cecil Ferraro MD Unavailable [phone] Alejandrina Lake MD Unavailable Unavailable Alejandrina Lake MD Unavailable Unavailable Rossana Parekh MD Primary Care Provider [phone] Rossana Barron MD Primary Care Provider [phone] Encounter Details Date Type Department Care Team (Late st Contact Info) Description 10/31/2006 Clinic Encounter [facility] Dermatology [address] [place], [place] [id number] Henry Sandra MD Social History Tobacco Use Types Packs/Day Years Used Date Smoking Tobacco: Never Assessed Sex and Gender Information Value Date Recorded Sex Assigned at Not on file Gender Identity Not on file Sexual Orientation Not on file documented as of this encounter Progress Notes * Henry Sandra MD - 11/07/2006 12:00 AM CDT Rebekah Leroy : 1960 E: Sid Sandra MD/[facility] DERMATOLOGY OFFICE VISIT CHART: [id number] Date of Service: 11/07/2006 Doc #: [id number] P Attending Physician: Alejandrina Lake MD SUBJECTIVE: This 46-year-old woman presents to me for her yearly skin check. The patient has a history of malignant melanoma excised from her right foot in 2001. The maximum tumor depth was 0.2 mm. The patient has no particular concerns today. The patient denies any fevers, chills or night sweats or any unusual weight loss. ALLERGIES: TETRACYCLINE. OBJECTIVE: On examination, the patient has benign nevi seen scattered about her back, flanks, abdomen, chest, upper extremity, lower extremity and head and neck areas. A nurse was present throughout the entire examination. A dysplastic nevus is noted on the midback. No other suspicious lesions were seen. The melanoma site on her right foot has healed well with no sign of recurrence. ASSESSMENT: 1. History of malignant melanoma. 2. Benign nevi. 3. Dysplastic nevus, midback. I discussed this in detail with the patient. PLAN: I elected to biopsy the dysplastic nevus per my routine and submit the specimen for histologic evaluation to [facility] in [place]. Dressing was applied. Wound care instructions were given. Further treatment will depend on the results of the biopsy. I would like to see the patient yearly for skin checks. PEARL/suma Nc: Alejandrina Lake MD documented in this encounter Plan of Treatment Not on file documented as of this encounter Visit Diagnoses Not on filedocumented in this encounter Additional Health Concerns Infection Onset Date Last Indicated Resolved Time COVID-19 Rule Out 12/12/2019 12/12/2019 12/14/2019 12:07 PM CDT COVID-19 Rule Out 02/26/2020 02/26/2020 02/27/2020 9:11 PM CDT documented as of this encounter Care Teams Automatic Teller Machine Servicer Relationship Specialty Start Date End Date Cecil Ferraro MD [address] [place] [address] PCP - General 03/23/10 12/20/18 No Personal, Physician PCP - General 05/20/09 03/22/10 eCcil Ferraro MD [facility] [address] [place] [address] PCP - General 04/24/09 05/19/09 Rossana Parekh MD PCP - General Family Medicine 12/21/18 11/25/19 Rossana Barron MD [address] [place] [phone] PCP - General Family Medicine 11/26/19 Cecil Ferraro MD [address] [place] [address] 08/07/17 12/23/18 No Personal, Physician 08/07/17 12/23/18 Cecil Ferraro MD [facility] [address] [place] [address] 08/07/17 12/23/18 Alejandrina Lake MD 08/07/17 12/23/18 Alejandrina Lake MD 08/07/17 12/23/18 documented as of this encounter Additional Source Comments PLEASE NOTE: Replies to this message will not be received.[facility] and [facility]
--- OUTSIDE RECORDS SUMMARY | 2024-02-01 08:50 | XMS_ITS | Encounter Summary ---
Author Organization [facility] [employer] [facility] Address [address] [place] [address] Care Team Providers Care Human Resources Director Name Role Phone Cecil Ferraro MD Primary Care Provider [phone] No Personal, Physician Primary Care Provider Geri vailable Cecil Ferraro MD Primary Care Provider + Cecil Ferraro MD Unavailable [phone] No Personal, Physician Unavailable Unavailab le Cecil Ferraro MD Unavailable [phone] Alejandrina Lake MD Unavailable Unavailable Alejandrina Lake MD Unavailable Unavailable Rossana Parekh MD Primary Care Provider Rossana Barron MD Primary Care Provider [phone] Encounter Details Date Type Department Care Team (Late st [facility] Info) Description 05/07/[address] [id number] Social History Tobacco Use Types Packs/Day Years Used Date Smoking Tobacco: Never Assessed Sex and Gender Information Value Date Recorded Sex Assigned at Not on file Gender Identity Not on file Sexual Orientation Not on file documented as of this encounter Procedure Notes * OLIMPIA REY - 05/07/2002 1:21 PM CSTAssociated Order(s): DERMATOPATHOLOGY - S documented in this encounter Plan of Treatment Not on file documented as of this encounter Procedures Procedure Name Priority Date/Time Associated Diagnosis Comments DERMATOPATHOLOGY - S 05/07/2002 1:21 PM [facility] [place] documented in this encounter Results * DERMATOPATHOLOGY - S (05/07/2002 1:21 PM [facility]) Narrative Procedure Note ROXI, SCAN - 05/07/2002 1:21 PM CST Scan Roxi PROCEDURE NOTE documented in this encounter Visit Diagnoses Not on filedocumented in this encounter Additional Health Concerns Infection Onset Date Last Indicated Resolved Time COVID-19 Rule Out 12/12/2019 12/12/2019 12/14/2019 12:07 PM CDT COVID-19 Rule Out 02/26/2020 02/26/2020 02/27/2020 9:11 PM CDT documented as of this encounter Care Teams Human Resources Director Relationship Specialty Start Date End Date Cecil Ferraro MD [address] [place], [place] [address] PCP - General 03/23/10 12/20/18 No Personal, Physician PCP - General 05/20/09 03/22/10 Cecil Ferraro MD [facility] [address] [place], [place] [id number] PCP - General 04/24/09 05/19/09 Rossana Parekh MD PCP - General Family Medicine 12/21/18 11/25/19 Rossana Barron MD [address] [place] [address] PCP - General Family Medicine 11/26/19 Cecil Ferraro MD [address] [place] [address] 08/07/17 12/23/18 No Personal, Physician 08/07/17 12/23/18 Cecil Ferraro MD [facility] [address] [place] [address] 08/07/17 12/23/18 Alejandrina Lake MD 08/07/17 12/23/18 Alejandrina Lake MD 08/07/17 12/23/18 documented as of this encounter Additional Source Comments PLEASE NOTE: Replies to this message will not be received.[facility] and [facility]
--- OUTSIDE RECORDS SUMMARY | 2024-02-01 08:50 | XMS_ITS | Encounter Summary ---
Author Organization [facility] [employer] [facility] Address [address] [place] [address] Care Team Providers Care Educational Psychology Teacher Name Role Phone Cecil Ferraro MD Primary Care Provider [phone] No Personal, Physician Primary Care Provider Geri vailable Cecil Ferraro MD Primary Care Provider + Cecil Ferraro MD Unavailable [phone] No Personal, Physician Unavailable Unavailab le Cecil Ferraro MD Unavailable [phone] Alejandrina Lake MD Unavailable Unavailable Alejandrina Lake MD Unavailable Unavailable Rossana Parekh MD Primary Care Provider Rossana Barron MD Primary Care Provider [phone] Encounter Details Date Type Department Care Team (Late st Contact Info) Description 11/29/[address] [id number] Social History Tobacco Use Types Packs/Day Years Used Date Smoking Tobacco: Never Assessed Sex and Gender Information Value Date Recorded Sex Assigned at Not on file Gender Identity Not on file Sexual Orientation Not on file documented as of this encounter Procedure Notes * OLIMPIA REY - 11/29/2001 3:14 PM CDTAssociated Order(s): ECG - S documented in this encounter Plan of Treatment Not on file documented as of this encounter Procedures Procedure Name Priority Date/Time Associated Diagnosis Comments EKG - S 11/29/2001 3:14 PM CDT documented in this encounter Results * ECG - S (11/29/2001 3:14 PM CDT) Narrative Procedure Note ROXI, SCAN - 11/29/2001 3:14 PM CDT Scan Roxi ECG documented in this encounter Visit Diagnoses Not on filedocumented in this encounter Additional Health Concerns Infection Onset Date Last Indicated Resolved Time COVID-19 Rule Out 12/12/2019 12/12/2019 12/14/2019 12:07 PM CDT COVID-19 Rule Out 02/26/2020 02/26/2020 02/27/2020 9:11 PM CDT documented as of this encounter Care Teams Educational Psychology Teacher Relationship Specialty Start Date End Date Cecil Ferraro MD [address] [place], [place] [address] PCP - General 03/23/10 12/20/18 No Personal, Physician PCP - General 05/20/09 03/22/10 Cecil Ferraro MD [id number] [place] [address] PCP - General 04/24/09 05/19/09 Rossana Parekh MD PCP - General Family Medicine 12/21/18 11/25/19 Rossana Barron MD [address] [place] [address] PCP - General Family Medicine 11/26/19 Cecil Ferraro MD [address] [place] [address] 08/07/17 12/23/18 No Personal, Physician 08/07/17 12/23/18 Cecil Ferraro MD [facility] [address] [place] [address] 08/07/17 12/23/18 Alejandrina Lake MD 08/07/17 12/23/18 Alejandrina Lake MD 08/07/17 12/23/18 documented as of this encounter Additional Source Comments PLEASE NOTE: Replies to this message will not be received.[facility] and [facility]
--- OUTSIDE RECORDS SUMMARY | 2024-02-01 08:50 | XMS_ITS | Encounter Summary ---
Author Organization [facility] [employer] Address [address] [place] [address] Care Team Providers Care Associate Director Financial Aid Name Role Phone Cecil Ferraro MD Primary Care Provider [phone] No Personal, Physician Primary Care Provider Geri vailable Cecil Ferraro MD Primary Care Provider + Cecil Ferraro MD Unavailable [phone] No Personal, Physician Unavailable Unavailab le Cecil Ferraro MD Unavailable [phone] Alejandrina Lake MD Unavailable Unavailable Alejandrina Lake MD Unavailable Unavailable Rossana Parekh MD Primary Care Provider Rossana Barron MD Primary Care Provider [phone] Encounter Details Date Type Department Care Team (Late st Contact Info) Description 04/05/2007 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 [address] [place] [address] Social History Tobacco Use Types Packs/Day Years [...] documented as of this encounter Care Teams Associate Director Financial Aid Relationship Specialty Start Date End Date Cecil Ferraro MD [address] [place] [address] PCP - General 03/23/10 12/20/18 No Personal, Physician PCP - General 05/20/09 03/22/10 Cecil Ferraro MD [facility] [address] [place], [place] [id number] PCP - General 04/24/09 05/19/09 Rossana Parekh MD PCP - General Family Medicine 12/21/18 11/25/19 Rossana Barron MD [address] [place] [phone] PCP - General Family Medicine 11/26/19 Cecil Ferraro MD [address] [place], [place] [address] 08/07/17 12/23/18 No Personal, Physician 08/07/17 12/23/18 Cecil Ferraro MD [address] [address] 08/07/17 12/23/18 Alejandrina Lake MD 08/07/17 12/23/18 Alejandrina Lake MD 08/07/17 12/23/18 documented as of this encounter Additional Source Comments PLEASE NOTE: Replies to this message will not be received.[facility] and [facility], [facility]
--- OUTSIDE RECORDS SUMMARY | 2024-02-01 08:50 | XMS_ITS | Encounter Summary ---
Author Organization [facility] [employer] [facility] Address [address] [place] [address] Care Team Providers Care Logistics Team Leader Name Role Phone Cecil Ferraro MD Primary Care Provider [phone] No Personal, Physician Primary Care Provider Geri vailable Cecil Ferraro MD Primary Care Provider + Cecil Ferraro MD Unavailable [phone] No Personal, Physician Unavailable Unavailab le Cecil Ferraro MD Unavailable Alejandrina Lake MD Unavailable Unavailable Alejandrina Lake MD Unavailable Unavailable Rossana Parekh MD Primary Care Provider [phone] Rossana Barron MD Primary Care Provider [phone] Encounter Details Date Type Department Care Team (Late st Contact Info) Description 01/17/2007 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 [address] [place] [address] Social History Tobacco Use Types Packs/Day Years [...] documented as of this encounter Care Teams Logistics Team Leader Relationship Specialty Start Date End Date Cecil Ferraro MD [address] [place] [address] PCP - General 03/23/10 12/20/18 No Personal, Physician PCP - General 05/20/09 03/22/10 Cecil Ferraro MD [facility] [address] [place], [place] [id number] PCP - General 04/24/09 05/19/09 Rossana Parekh MD PCP - General Family Medicine 12/21/18 11/25/19 Rossana Barron MD [address] [place] [phone] PCP - General Family Medicine 11/26/19 Cecil Ferraro MD [address] [place], [place] [address] 08/07/17 12/23/18 No Personal, Physician 08/07/17 12/23/18 Cecil Ferraro MD [address] [address] 08/07/17 12/23/18 Alejandrina Lake MD 08/07/17 12/23/18 Alejandrina Lake MD 08/07/17 12/23/18 documented as of this encounter Additional Source Comments PLEASE NOTE: Replies to this message will not be received.[facility]
--- OUTSIDE RECORDS SUMMARY | 2024-02-01 08:50 | XMS_ITS | Encounter Summary ---
Author Organization [facility] [employer] [facility] Address [address] [place] [address] Care Team Providers Care Water Chaser Name Role Phone Cecil Ferraro MD Primary Care Provider [phone] No Personal, Physician Primary Care Provider Geri vailable Cecil Ferraro MD Primary Care Provider + Cecil Ferraro MD Unavailable [phone] No Personal, Physician Unavailable Unavailab le Cecil Ferraro MD Unavailable [phone] Alejandrina Lake MD Unavailable Unavailable Alejandrina Lake MD Unavailable Unavailable Rossana Parekh MD Primary Care Provider [phone] Rossana Barron MD Primary Care Provider [phone] Encounter Details Date Type Department Care Team (Late st Contact Info) Description 12/23/2003 [facility] [address] [place], [place] [address], [place] [id number] Unknown, [place] [address] Social History Tobacco Use Types Packs/Day Years Used Date Smoking Tobacco: Never Assessed Sex and Gender Information Value Date Recorded Sex Assigned at Not on file Gender Identity Not on file Sexual Orientation Not on file documented as of this encounter Plan of Treatment Not on file documented as of this encounter Procedures Procedure Name Priority Date/Time Associated Diagnosis Comments PROCEDURE - S 12/23/2003 9:19 AM CDT documented in this encounter Results * PROCEDURE - S (12/23/2003 9:19 AM CDT) Scan Roxi PROCEDURE NOTE documented in this encounter Visit Diagnoses Not on filedocumented in this encounter Additional Health Concerns Infection Onset Date Last Indicated Resolved Time COVID-19 Rule Out 12/12/2019 12/12/2019 12/14/2019 12:07 PM CDT COVID-19 Rule Out 02/26/2020 02/26/2020 02/27/2020 9:11 PM CDT documented as of this encounter Care Teams Water Chaser Relationship Specialty Start Date End Date Cecil Ferraro MD [address] [place] [address] PCP - General 03/23/10 12/20/18 No Personal, Physician PCP - General 05/20/09 03/22/10 Cecil Ferraro MD [address] [facility] [address] [place], [place] [phone] PCP - General 04/24/09 05/19/09 Rossana Parekh MD PCP - General Family Medicine 12/21/18 11/25/19 Rossana Barron MD [address] [place] [address] PCP - General Family Medicine 11/26/19 Cecil Ferraro MD [address] [place] [address] 08/07/17 12/23/18 No Personal, Physician 08/07/17 12/23/18 Cecil Ferraro MD [facility] [address] [address] 08/07/17 12/23/18 Alejandrina Lake MD 08/07/17 12/23/18 Alejandrina Lkae MD 08/07/17 12/23/18 documented as of this encounter Additional Source Comments PLEASE NOTE: Replies to this message will not be received.[facility] and [facility]
--- OUTSIDE RECORDS SUMMARY | 2024-02-01 08:50 | XMS_ITS | Encounter Summary ---
Author Organization [facility] [employer] [facility] Address [address] [place] [address] Care Team Providers Care Shadow Graph Weight Operator Name Role Phone Cecil Ferraro MD Primary Care Provider [phone] No Personal, Physician Primary Care Provider Geri vailable Cecil Ferraro MD Primary Care Provider + Cecil Ferraro MD Unavailable [phone] No Personal, Physician Unavailable Unavailab le Cecil Ferraro MD Unavailable [phone] Alejandrina Lake MD Unavailable Unavailable Alejandrina Lake MD Unavailable Unavailable Rossana Parekh MD Primary Care Provider Rossana Barron MD Primary Care Provider [phone] Encounter Details Date Type Department Care Team (Late st [facility] Info) Description 03/28/[address] [id number] Social History Tobacco Use Types Packs/Day Years Used Date Smoking Tobacco: Never Assessed Sex and Gender Information Value Date Recorded Sex Assigned at Not on file Gender Identity Not on file Sexual Orientation Not on file documented as of this encounter Procedure Notes * OLIMPIA REY - 03/28/1996 1:54 PM CDTAssociated Order(s): OUTSIDE LABS - S documented in this encounter Plan of Treatment Not on file documented as of this encounter Procedures Procedure Name Priority Date/Time Associated Diagnosis Comments OUTSIDE LABS - S 03/28/1996 1:54 PM CDT documented in this encounter Results * OUTSIDE LABS - S (03/28/1996 1:54 PM CDT) Narrative Procedure Note ROXI, SCAN - 03/28/1996 1:54 PM CDT Scan Roxi PROCEDURE NOTE documented in this encounter Visit Diagnoses Not on filedocumented in this encounter Additional Health Concerns Infection Onset Date Last Indicated Resolved Time COVID-19 Rule Out 12/12/2019 12/12/2019 12/14/2019 12:07 PM CDT COVID-19 Rule Out 02/26/2020 02/26/2020 02/27/2020 9:11 PM CDT documented as of this encounter Care Teams Shadow Graph Weight Operator Relationship Specialty Start Date End Date Cecil Ferraro MD [address] [place], [place] [address] PCP - General 03/23/10 12/20/18 No Personal, Physician PCP - General 05/20/09 03/22/10 Cecil Ferraro MD [facility] [address] [place], [place] [phone] PCP - General 04/24/09 05/19/09 Rossana Parekh MD PCP - General Family Medicine 12/21/18 11/25/19 Rossana Barron MD [address] [place] [phone] PCP - General Family Medicine 11/26/19 Cecil Ferraro MD [address] [place] [address] 08/07/17 12/23/18 No Personal, Physician 08/07/17 12/23/18 Cecil Ferraro MD [address] [place] [address] 08/07/17 12/23/18 Alejandrina Lake MD 08/07/17 12/23/18 Alejandrina Lake MD 08/07/17 12/23/18 documented as of this encounter Additional Source Comments PLEASE NOTE: Replies to this message will not be received.[facility] and Replaced By [facility]
--- OUTSIDE RECORDS SUMMARY | 2024-02-01 08:50 | XMS_ITS | Encounter Summary ---
Author Organization [facility] [employer] [facility] Address [address] [place] [address] Care Team Providers Care Warehouse Order Picker Name Role Phone Cecil Ferraro MD Primary Care Provider [phone] No Personal, Physician Primary Care Provider Geri vailable Cecil Ferraro MD Primary Care Provider + Cecil Ferraro MD Unavailable [phone] No Personal, Physician Unavailable Unavailab le Cecil Ferraro MD Unavailable [phone] Alejandrina Lake MD Unavailable Unavailable Alejandrina Lake MD Unavailable Unavailable Rossana Parekh MD Primary Care Provider Rossana Barron MD Primary Care Provider [phone] Encounter Details Date Type Department Care Team (Late st [facility] Info) Description 08/07/[address] [id number] Social History Tobacco Use Types Packs/Day Years Used Date Smoking Tobacco: Never Assessed Sex and Gender Information Value Date Recorded Sex Assigned at Not on file Gender Identity Not on file Sexual Orientation Not on file documented as of this encounter Procedure Notes * OLIMPIA REY - 08/07/2001 1:21 PM CSTAssociated Order(s): DERMATOPATHOLOGY - S documented in this encounter Plan of Treatment Not on file documented as of this encounter Procedures Procedure Name Priority Date/Time Associated Diagnosis Comments DERMATOPATHOLOGY - S 08/07/2001 1:21 PM 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 documented in this encounter Results * DERMATOPATHOLOGY - S (08/07/2001 1:21 PM 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) Narrative Procedure Note ROXI, SCAN - 08/07/2001 1:21 PM CST Scan Roxi PROCEDURE NOTE documented in this encounter Visit Diagnoses Not on filedocumented in this encounter Additional Health Concerns Infection Onset Date Last Indicated Resolved Time COVID-19 Rule Out 12/12/2019 12/12/2019 12/14/2019 12:07 PM CDT COVID-19 Rule Out 02/26/2020 02/26/2020 02/27/2020 9:11 PM CDT documented as of this encounter Care Teams Warehouse Order Picker Relationship Specialty Start Date End Date Cecil Ferraro MD [address] [place], [place] [address] PCP - General 03/23/10 12/20/18 No Personal, Physician PCP - General 05/20/09 03/22/10 Cecil Ferraro MD [facility] [address] [place], [place] [phone] PCP - General 04/24/09 05/19/09 Rossana Parekh MD PCP - General Family Medicine 12/21/18 11/25/19 Rossana Barron MD [address] [place] [address] PCP - General Family Medicine 11/26/19 Cecil Ferraro MD [address] [place] [address] 08/07/17 12/23/18 No Personal, Physician 08/07/17 12/23/18 Cecil Ferraro MD [facility] [address] [place] [address] 08/07/17 12/23/18 Alejandrina Lake MD 08/07/17 12/23/18 Alejandrina Lake MD 08/07/17 12/23/18 documented as of this encounter Additional Source Comments PLEASE NOTE: Replies to this message will not be received.[facility] and [facility]
== END 2024-02-01 08:41 | disposition home or self-care (01) ==
PROVIDERS: PCP Physician Assistant Medical; Visit Provider Obstetrics & Gynecology
DX: Z01.419 Encounter for gynecological examination (general) (routine) without abnormal findings (principal); E11.9 Type 2 diabetes mellitus without complications; Z13.29 Encounter for screening for other suspected endocrine disorder; Z13.6 Encounter for screening for cardiovascular disorders
CPT/HCPCS: 80061; 84443

== ENCOUNTER 2024-05-08 08:21 | Outpatient (CLI) | payer OTHER, SELFPAY ==
--- OUTSIDE RECORDS SUMMARY | 2024-05-08 08:24 | XMS_ITS | Encounter Summary ---
Author Organization [facility] Address [address] [place] [address] Care Team Providers Care Travel Journalist Name Role Phone Unavailable Primary Care Provider Unavailabl e Reason for Visit * Appointment Request (Routine) - Closed Specialty Diagnoses / Procedures Referred By Zainab wilkinson Referred To Contact Colon and Rectal Surgery Diagnoses Prolapse Rectal Mishel Hernandez M.D. [address] [place] [address] Phone: tel: fax: Referral ID Status Reason Start Date Expiration Date Visits Re quested Visits Authorized [id number] Closed 03/06/2024 03/06/2025 1 1 Encounter Details Date Type Department Care Team ([facility] st Contact Info) Description 03/21/2024 8:00 AM CDT Telemedicine Division of Colon and Rectal Surgery in [place], [place] [address] [place] [phone] Ruslan Story P.A.-C. [address] [place] [phone] Prolapse Rectal (Primary Dx); Hemorrhoids Social History Tobacco Use Types Packs/Day Years Used Date Smoking Tobacco: Never Assessed [facility] Utilities Answer Date Recorded In the past 12 months has [employer], gas, oil, or water [employer] threatened to shut off services in your home? No 03/20/2024 Exercise Vital Sign Answer Date Recorde d On average, how many days pe r week do you engage in moderate to strenuous exercise (like a brisk walk)? 5 days 03/20/2024 On average, how many minutes do you engage in exercise at this level? 40 min 03/20/2024 Hunger Vital Sign Answer Date Recorded Within the past 12 months, y ou worried that your food would run out before you got the money to buy more. Never true 03/20/20 24 Within the past 12 months, t he food you bought just didn't last and you didn't have money to get more. Never true 03/20/2024 PRAPARE - Transportation Answer Date Re corded In the past 12 months, has l ack of transportation kept you from medical appointments or from getting medications? No 03/10 In the past 12 months, has l ack of transportation kept you from meetings, work, or from getting things needed for daily living? No 03/20/2024 Nutrition Answer Date Recorded On average, how many serving s of fruits and vegetables do you eat per day (serving size is equal to 1 cup or approximately the size of a tennis ball)? 5 or more 03/20/2024 Dental Answer Date Recorded Dental: Regular Dentist Yes 03/20/20 Employment Answer Date Recorded Employment status Employed and actively working without restrictions 03/20/2024 Housing Stability Answer Date Recorded What is your living situation today? I have a [facility] place to live 03/20/2024 Comments Unknown Sex and Gender Information Value Date Recorded Sex Assigned at Female 03/20/2024 9:14 PM CDT Legal Sex Female 11:39 AM CDT Gender Identity Female 03/20/2024 9:14 PM CDT Sexual Orientation Straight 03/20/2024 9: 14 PM CDT documented as of this encounter Consult Notes * Ruslan Story P.A.-C. - 03/21/2024 8:00 AM CDT SUBJECTIVE Consult conducted via real-time audio/video technology by Ruslan Story PA-C in [facility] to the patient in patient home. REASON FOR CONSULT Rebekah Leroy is a 63 y.o. female who presents for evaluation of rectal prolapse [address] [facility] [phone] HISTORY OF PRESENT ILLNESS Rebekah Leroy presents today for evaluation of rectal prolapse. Ms. Leroy has a past medical history of type 2 diabetes managed with diet and exercise, hyperlipidemia, history of malignant melanoma. She states that when she had a cholecystectomy in 2021, she suffered from constipation from the pain medication. She remembers straining significantly. Since then she has sometimes notices a bulge onthe right posterior side about the size of a grape. She does not know for sure if it is the rectum or a hemorrhoid. She was recently seen in [facility] and two external hemorrhoids were noted. She states that she feels this bulge or prolapse only when she has to strain which happens episodically approximately 10 times a month and occur when she has constipation. Her normal bowel movements are once a day and usually soft, however does have episodes of constipation with harder jose whenshe doesn't drink water or has less fiber. She started Psyllium husk 3 weeks ago and has noticed some improvement. The prolapse sometimes spontaneously reduces but she does have to push it back in if she strains more. She describes it as a size of a grape. If she has a very large BM that is forcefully she will notice some bleeding on TP. She has had about 5-6 episodes of urgency in the past 6 years with 3 episodes of full bowel movement incontinence in the last 2 years however she does believe this is connected with her other symptoms and is more related to her fasting episodes. She states that she does not say this has been impacting her daily living but was concerned and wanted to know more about what this could be. She does not believe surgery would be necessary. Reviewed allergies, past medical history, anorectal surgical history and medications. REVIEW OF SYSTEMS All other systems reviewed and are negative. OBJECTIVE PHYSICAL EXAM Constitutional Appearance: Normal appearance. Neurological Mental Status: She is alert. Psychiatric Mood and Affect: Mood normal. Behavior: Behavior normal. No rectal exam able to be performed due to virtual visit. ASSESSMENT / PLAN #1 Rectal prolapse vs prolapsing internal hemorrhoid It was a pleasure meeting Rebekah Leroy today. We discussed her symptoms. Without being able to do a complete exam, it is difficult to determine if this is a true rectal prolapse or a prolapsing internal hemorrhoid. However, regardless, her symptoms do seem to be very mild without impacting her daily living and she is able to manage symptom relief by avoiding straining and avoiding constipation. Thus, with shared decision making, we decided to take a watch and wait approach and focus on treating her occasional constipation and avoid more testing or speaking with a surgeon at this time. However, if anything changes in the future and this is not able to be managed through treatment of her constipation, she will reach out to me and we will move forward with testing. We discussed increasing her fiber intake through diet and a fiber supplement, avoiding straining, keeping her BMs soft and regular, limiting toileting time to less than 5 minutes, and taking a stool softener like MiraLAX when necessary. Fiber: Recommended to start increasing the amount of dietary fiber on a daily basis to try and achieve 30 grams per day. Reviewed how fiber works and the rationale for increasing intake. Reviewed how to slowly increase fiber into the diet over a month and not all at once. Also reviewed the importance of increasing water intake to 60-80 oz per day with increased fiber intake. Also recommended using a fiber supplement (Metamucil / Citrucel) to help with achieving 30 grams per day. Reviewed Metamucil intake. Should start with one level tablespoon (not a heaping teaspoon as it states on back of bottle) per day for a week. If all goes well increase to one tablespoon twice aday for a week. Over the following two weeks increase to one tablespoon three times per day. If it is inconvenient to take a fiber supplement throughout the day I recommended taking all tablespoons before bed. Each tablespoon will provide approximately 6- 8 grams of fiber. Contact information was given. All questions were answered Patient verbalized understanding and was agreeable to the plan of care. documented in this encounter Plan of Treatment Not on file documented as of this encounter Visit Diagnoses Diagnosis Prolapse Rectal- Primary Hemorrhoids documented in this encounter
--- OUTSIDE RECORDS SUMMARY | 2024-05-08 08:24 | XMS_ITS ---
Author Organization [facility] Address [address] [place] [address] Care Team Providers Care Climate Change Analyst Name Role Phone Unavailable Unavailable Unavailable Surgery Details Not on file Complications Check Surgery Details section. Procedure Estimated Blood Loss Check Surgery Details section. Procedure Findings Check Surgery Details section. Procedure Specimens Taken Check Surgery Details section.
--- OUTSIDE RECORDS SUMMARY | 2024-05-08 08:24 | XMS_ITS | Referral Summary ---
Author Organization [facility] Address [address] [place] [address] Care Team Providers Care Chip Tuner Name Role Phone Unavailable Primary Care Provider Unavailabl e Source Comments Patient records contain information from all sites at [facility]. For routine questions regarding patient records, call [phone] during business hours, M-F 8:00 AM - 5:00 PM Central Time. Record requests for emergency care only can be directed to [phone] at any time.[facility] Encounters Date Type Department Care Team Description 03/21/2024 8:00 AM CDT Telemedicine Division of Colon and Rectal Surgery in [place], [place] [address] [place] [address] Ruslan Story P.A.-C. Prolapse Rectal (Primary Dx); Hemorrhoids from Last 3 Months Social History Tobacco Use Types Packs/Day Years Used Date Smoking Tobacco: Never Assessed [facility] Utilities Answer Date Recorded In the past 12 months has [email or web address], gas, oil, or water [employer] threatened to shut off services in your [...] your living situation today? I have a [facility] place to live 03/20/2024 Comments Unknown Sex and Gender Information Value Date Recorded Sex Assigned at Female 03/20/2024 9:14 PM CDT Legal Sex Female 11:39 AM CDT Gender Identity Female 03/20/2024 9:14 PM CDT Sexual Orientation Straight 03/20/2024 9: 14 PM CDT Plan of Treatment Not on file Insurance [employer]
--- OUTSIDE RECORDS SUMMARY | 2024-05-08 08:24 | XMS_ITS | Clinical Summary ---
Author Organization [facility] Address [address] [place] [address] Care Team Providers Care Ui Designer Name Role Phone Unavailable Primary Care Provider Unavailabl e Source Comments Patient records contain information from all sites at [facility]. For routine questions regarding patient records, call [phone] during business hours, M-F 8:00 AM - 5:00 PM Central Time. Record requests for emergency care only can be directed to [phone] at any time.[facility] Encounters Date Type Department Care Team Description 03/21/2024 8:00 AM CDT Telemedicine Division of Colon and Rectal Surgery in [place], [place] [address] [place] [address] Ruslan Story P.A.-C. Prolapse Rectal (Primary Dx); Hemorrhoids from Last 3 Months Social History Tobacco Use Types Packs/Day Years Used Date Smoking Tobacco: Never Assessed [facility] Utilities Answer Date Recorded In the past 12 months has [employer], gas, oil, or water [employer] threatened to shut off services in your [...] Date Recorded Dental: Regular Dentist Yes 03/20/20 24 Employment Answer Date Recorded Employment status Employed and actively working without restrictions 03/20/2024 Housing Stability Answer Date Recorded What is your living situation today? I have a [facility] place to live 03/20/2024 Comments Unknown Sex and Gender Information Value Date Recorded Sex Assigned at Female 03/20/2024 9:14 PM CDT Legal Sex Female 11:39 AM CDT Gender Identity Female 03/20/2024 9:14 PM CDT Sexual Orientation Straight 03/20/2024 9: 14 PM CDT Plan of Treatment Health Maintenance Due Date Last Done Comments CT Colonography 1960 Cologuard 1960 FIT 1960 HIV Screening 1960 Hepatitis C Screening 1960 Zoster Vaccines (1 of 2) 2012 Cervical/Vaginal Cancer Screening 12/21/2021 12/21/2018 Mammogram 12/23/2021 12/23/2020, 12/08, 11/15/2017, Additional history exists Depression Screening (Annual PHQ-2) 07/10/2023 COVID-19 Vaccine ( season) 2024 05/29/2021, 08/17/2020, 07/20/2020 Influenza Vaccine (#1) 2024 Fasting Glucose for Diabetes Screening 07/28/2026 07/28/2023, 04/05/2022, 10/05/2021 DTaP,Tdap,and Td Vaccines (4 - Td or Tdap) 09/16/2027 09/15/2017, 04/07/2008, 04/04/2008, Additional history exists Lipid (Cholesterol) Screening 07/28/2028 07/28/2023, 11/16/2022, 04/15/2022, Additional history exists Colonoscopy 02/28/2033 02/28/2023, 11/13/2017 Colorectal Cancer Screening 02/28/2033 IPV Vaccines Aged Out No longer eligi ble based on patient's age to complete this topic Pneumococcal vaccine (0-64 years) Aged Out No longer eligible based on patient's age to complete this topic Insurance [employer]
--- OUTSIDE RECORDS SUMMARY | 2024-05-08 08:25 | XMS_ITS | Encounter Summary ---
Author Organization [facility] [facility] Address [address] [place] [address] Care Team Providers Care Creel Clerk Name Role Phone Cecil Ferraro MD Primary Care Provider [phone] No Personal, Physician Primary Care Provider Geri vailable Cecil Ferraro MD Primary Care Provider + Cecil Ferraro MD Unavailable [phone] No Personal, Physician Unavailable Unavailab le Cecil Ferraro MD Unavailable Alejandrina Lake MD Unavailable Unavailable Alejandrina Lake MD Unavailable Unavailable Rossana Parekh MD Primary Care Provider Rossana Barron MD Primary Care Provider [phone] Encounter Details Date Type Department Care Team (Late st Contact Info) Description 12/23/2003 [facility] [address] [place], [place] [address], [place] [phone] Unknown, [place] [address] Social History Tobacco Use Types Packs/Day Years [...] documented as of this encounter Care Teams Creel Clerk Relationship Specialty Start Date End Date Cecil Ferraro MD [address] [place] [address] PCP - General 03/23/10 12/20/18 No Personal, Physician PCP - General 05/20/09 03/22/10 Cecil Ferraro MD [facility] [id number] [place], [place] [id number] PCP - General 04/24/09 05/19/09 Rossana Parekh MD PCP - General Family Medicine 12/21/18 11/25/19 Rossana Barron MD [address] [place] [address] PCP - General Family Medicine 11/26/19 Cecil Ferraro MD [address] [place] [address] 08/07/17 12/23/18 No Personal, Physician 08/07/17 12/23/18 Cecil Ferraro MD [facility] [address] [address] 08/07/17 12/23/18 Alejandrina Lake MD 08/07/17 12/23/18 Alejandrina Lake MD 08/07/17 12/23/18 documented as of this encounter Additional Source Comments PLEASE NOTE: Replies to this message will not be received.[facility] and [facility]
--- OUTSIDE RECORDS SUMMARY | 2024-05-08 08:25 | XMS_ITS | Clinical Summary ---
Author Organization [facility] Address [address] [place] [address] Care Team Providers Care Computer Support Analyst Name Role Phone Rossana Barron MD Primary Care Provider [phone] Allergies Active Allergy Reactions Criticality Noted Date [...] Varicella Zoster Sequential (1 of 2) 2012 Mammogram Standard 12/27/2022 12/27/2021, 0 12/27/2021, 12/23/2020, Additional history exists COVID-19 Vaccine (2 - season) 2024 05/29/2021 Influenza Vaccine (#1) 2024 Cervical Cancer Screening 10/05/20262021, 12/21/2018, 02/03/2011, Additional history exists HPV Testing 10/05/2026 10/05/2021, 02/03/2011 Lipids Standard 04/15/2027 04/15/2022, 09/08, 10/27/2020, Additional history exists DTaP/Tdap/Td Vaccines (5 - Td or Tdap) 09/16/2027 09/15/2017, 04/07/2008, 07/10/1998, Additional history exists Colonoscopy 02/29/2028 02/28/2023, 05/0 01/2018, 07/01/2014, Additional history exists Colorectal Cancer Screening 02/29/2028 Respiratory Syncytial Virus (RSV) Vaccine (1 - 1-dose 75+ series) 2037 Hepatitis C Testing Completed 11/29/2001 Hepatitis B [...] Procedure Name Priority Date/Time Associated Diagnosis Comments MAMMO SCREEN LETICIA 2D Routine 12/23/2020 6 :53 AM CDT Encounter for screening mammogram for malignant neoplasm of breast LIPID PANEL Routine 10/27/2020 2:59 PM CDT Hyperglycemia Type 2 diabetes mellitus without complication, without long-term current use of insulin (HCC) PAP TEST Routine 12/21/2018 9:00 AM CDT COLONOSCOPY Routine 11/13/2017 8:40 AM CDT HPV HIGH RISK Routine 02/03/2011 5:00 PM CDT HEPATITIS C AB 11/29/2001 12:09 PM CDT from Last 3 Months or Most Recently Relevant to Health Maintenance Results * MAMMO SCREEN LETICIA (12/23/2020 6:53 AM CDT) Anatomical Region Laterality Modality Breast Bilateral Mammography 12/23/2020 10:2 7 AM CDT Narrative 12/23/2020 10:28 AM CDT EXAM: MAMMO SCREEN LETICIA INDICATION: Screening. TECHNIQUE: Full field 2D digital CC and MLO views of both breasts were obtained. ??This examination was reviewed with the aid of computer-aided detection (CAD) system. COMPARISON: 11/15/2017 MAMMO SCREEN LETICIA 04/08/2016 MAMMO SCREEN LETICIA BREAST COMPOSITION: BC 2: There are scattered areas of fibroglandular densities. FINDINGS: There are benign appearing calcifications. There are no suspicious masses, calcifications, or other findings in either breast. IMPRESSION: There is no mammographic evidence of malignancy. ??Recommend annual screening mammography. RECOMMENDATION: ??BL: Bilateral RC 1: Screening Mammograms BI-RADS: BIRADS 2: Benign Procedure Note Lupe Phillip MD - 12/23/2020 EXAM: MAMMO SCREEN LETICIA INDICATION: Screening. TECHNIQUE: Full field 2D digital CC and MLO views of both breasts were obtained.This examination was reviewed with the aid of computer-aided detection (CAD)system. COMPARISON: 11/15/2017 MAMMO SCREEN LETICIA 04/08/2016 MAMMO SCREEN LETICIA BREAST COMPOSITION: BC 2: There are scattered areas of fibroglandular densities. FINDINGS: There are benign appearing calcifications. There are no suspiciousmasses, calcifications, or other findings in either breast. IMPRESSION: There is no mammographic evidence of malignancy. Recommend annualscreening mammography. RECOMMENDATION: BL: Bilateral RC 1: Screening Mammograms BI-RADS: BIRADS 2: Benign Cecil Ferraro MD RAD MAMMO * (ABNORMAL) LIPID PANEL (10/27/2020 2:59 PM CDT) Cholesterol 208(H) <200 mg/dL 10/27/2020 5:44 PM CDT [facility] Triglycerides 279(H) 30 - 150 mg/dL 10/27/2020 5:44 PM CDT [facility] Cholesterol, LDL (Calculated) 111 0 - 159 mg/dL 10/27/2020 5:44 PM CDT [facility] Cholesterol, HDL 41 >40 mg/dL 10/28/19 21 5:44 PM CDT [facility] Cholesterol, vLDL 56 mg/dL 021 5:44 PM CDT [facility] Blood VENOUS BLOOD / Unknown Venipuncture / Unknown 10/27/2020 2:59 PM CDT 10/27/2020 2:59 PM CDT Rossana Parekh MD LAB CHEMISTRY ORDERA [facility] Organization Address City/State/ZIP Co de Phone Number [facility] [address] [place] [address] * PAP TEST (12/21/2018 9:00 AM CDT) Specimen Adequacy Satisfactory for evaluation: Endocervical component present. Satisfactory for evaluation: Partially obscured by inflammation. 12/26/2018 2:25 PM CDT [facility] Interpretation Negative for intraepithelial lesion or malignancy. 12/26/2018 2:25 PM CDT [facility] Reflex? Reflex if ASCUS only 12/26/2018 2:25 PM CDT [facility] Disclaimer/Infor mational Comment The Pap test is an initial screening test that is helpful in the detection of certain benign, pre-malignant disorders of cervical and vaginal tissues. Like all medical tests, the Pap test has an inherent false-negative and false-positive rate, therefore, regular gynecologic health care with Pap test screening is highly suggested. In addition, an abnormal result may require additional confirmatory testing. 12/26/2018 2:25 PM CDT [facility] Other PART OF UTERINE CERVIX / Unknown 12/21/2018 9:00 AM CDT 12/25/2018 5:12 PM CDT Rossana Parekh MD LAB CYTOLOGY ORDERAB LES [facility] [address] [place] [address], * COLONOSCOPY (11/13/2017 8:40 AM CDT) 11/13/2017 8:40 AM CDT Narrative [facility] - 11/13/2017 9:39 AM CDT [facility] Patient Name: Rebekah Leroy Procedure Date: 11/13/2017 8:40 AM Date of : 1960 Admit Type: Outpatient Age: 57 Room: [facility] Gender: Female Note Status: Finalized Attending [...] and oxygen saturations ?were monitored continuously. The [id number] was introduced ?through the anus and advanced [...] 8:40 AM Cecil Ferraro MD GI PROCEDURES [facility] * HPV HIGH RISK (02/03/2011 5:00 PM CDT) HPV TYPE 16 NEGATIVE NEG [facility] HPV TYPE 18 NEGATIVE NEG [facility] HPV TYPE 31 NEGATIVE NEG [facility] HPV TYPE 33 NEGATIVE NEG [facility] HPV TYPE 35 NEGATIVE NEG [facility] HPV TYPE 39 NEGATIVE NEG [facility] HPV TYPE 45 NEGATIVE NEG [facility] HPV TYPE 51 [facility]G [facility] HPV TYPE 52 NEGATIVE NEG [facility] HPV TYPE 56 NEGATIVE NEG [facility] HPV TYPE 58 NEGATIVE NEG [facility] HPV TYPE 59 NEGATIVE NEG [facility] HPV TYPE 66 NEGATIVE NEG [facility] HPV TYPE 68 NEGATIVE NEG [facility] Comment: Methodology: The HPV-HR QUAD test is designed to detect and identify high risk HPV types 16, 18, 31, 33, 35, 39, 45, 51, 52, 56, 58, 59, 66, and 68. Genomic DNA was extracted from the submitted SurePath sample using the [employer] HPV sample processing kit. The HPV-HR assay includes five major processes: 1) Multiplex PCR amplification of purified DNA 2) Fluorescent label incorporation using analyte specific primer extension (ASPE) 3) Hybridization of the labeled ASPE ??to a microarray followed by washing 4) Scanning of the microarray and 5) Signal detection and analysis. The analytical and performance characteristics of this test were validated by [facility] pursuant to Clinical Laboratory Improvement Amendments (CLIA 88) requirements. It has not been cleared or approved by the U.S. Food and Drug Administration (FDA). The FDA has determined that such clearance or approval is not a requirement prior to use for clinical purposes. This laboratory is certified by CLIA as qualified to perform high complexity clinical laboratory testing. 02/03/2011 5:00 PM CDT 02/08/2011 8:54 PM CDT Alejandrina Lake MD LAB SEROLOGY ORDERAB LES Performing Organization Address City/[facility] Co de Phone Number [facility] [address] [place] [id number] * HEPATITIS C ANTIBODY (11/29/2001 12:09 PM CDT) HEPATITIS C ANTIBODY NONREACTIVE NONR [facility] HEPATITIS C ANTIBODY A NONREACTIVE RESULT INDICATES THE ABSENCE OF DETECTABLE LEVELS OF ANTIBODY TO HEPATITIS C VIRUS. AT PRESENT, THERE IS NO RECOGNIZED STANDARD FOR EVALUATING THE PRESENCE OR ABSENCE OF HEPATITIS C VIRUS ANTIBODIES INHUMAN BLOOD. THEREFORE, THIS RESULT DOES NOT PRECLUDE EXPOSURE TO OR INFECTION WITH HEPATITIS C VIRUS. [facility] 11/29/2001 12:0 9 PM CDT Marnie Zazueta MD LAB SEROLOGY ORDERAB LES [facility] [address] [place] [address] from Last 3 Months or Most Recently Relevant to Health Maintenance Care Teams Computer Support Analyst Relationship Specialty Start Date End Date Rossana Barron MD [address] [place] [address] PCP - General Family Medicine 11/26/19 Additional Source Comments PLEASE NOTE: Replies to this message will not be received.[facility] and [facility]
--- OUTSIDE RECORDS SUMMARY | 2024-05-08 08:25 | XMS_ITS | Encounter Summary ---
Author Organization [facility] Address [address] [place] [address] Care Team Providers Care Hotel Director Name Role Phone Cecil Ferraro MD Primary Care Provider [phone] No Personal, Physician Primary Care Provider Geri vailable Cecil Ferraro MD Primary Care Provider + Cecil Ferraro MD Unavailable [phone] No Personal, Physician Unavailable Unavailab le Cecil Ferraro MD Unavailable [phone] Alejandrina Lake MD Unavailable Unavailable Alejandrina Lake MD Unavailable Unavailable Rossana Parekh MD Primary Care Provider Rossana Barron MD Primary Care Provider [phone] Encounter Details Date Type Department Care Team (Late st Contact Info) Description 07/14/[address] [facility] Obstetrics/Gynecology [address], [place] [phone] Marti Licea PA Social History Tobacco Use Types Packs/Day Years Used Date Smoking Tobacco: Never Assessed Sex and Gender Information Value Date Recorded Sex Assigned at Not on file Gender Identity Not on file Sexual Orientation Not on file documented as of this encounter Progress Notes * Marti Licea PA - 07/14/2006 12:00 AM [facility] Rebekah Leroy [id number] 07/14/2006 [...] the patient on her cell phone at [phone]. It is okay to leave a message and she prefers a prescription to be called into [facility]. EDMUNDO Trent-Akhil/maranda A A Doc#: [id number] cc: ATIBILITY TEST ENGINEER documented in this encounter Plan of Treatment Not on file documented as of this encounter Procedures Procedure Name Priority Date/Time Associated Diagnosis Comments WET PREPARATION STAT 07/14/2006 9:25 AM COMPATIBILITY TEST ENGINEER URINALYSIS, MICROSCOPIC ONLY Routine 07/14/2006 9:20 AM COMPATIBILITY TEST ENGINEER URINALYSIS WITH REFLEX TO MICROSCOPIC Routine 07/14/2006 9:20 AM COMPATIBILITY TEST ENGINEER documented in this encounter Results * WET PREP (07/14/2006 9:25 AM COMPATIBILITY TEST ENGINEER) SPECIMEN DESCRIPTION [facility] SPECIAL REQUESTS NONE [facility] WET PREP PH [facility] Comment: 5.5 PH MAY BE FALSELY ELEVATED DUE TO THE PRESENCE OF RBCS NUMEROUS WBCS NUMEROUS EPITHELIAL CELLS NUMEROUS BACTERIA NEGATIVE FOR TRICHOMONAS NEGATIVE FOR CLUE CELLS NEGATIVE FOR YEAST NEGATIVE WHIFF TEST FEW RBCS REPORT STATUS FINAL 07/14/2006 [facility] GENITAL STRUCTURE / Unknown 07/14/2006 9:25 AM COMPATIBILITY TEST ENGINEER 07/14/2006 9:26 AM COMPATIBILITY TEST ENGINEER [facility] MICROBIOLOGY OR DERABLES [facility] * MICROSCOPIC URINE (07/14/2006 9:20 AM COMPATIBILITY TEST ENGINEER) UR WBC 1-2 0 - 5 /HPF [facility] UR RBC 3-5 0 - 2 /HPF [facility] EPI CELLS 1-2 <5 /HPF [facility] CASTS NONE NONE /LPF [facility] BACTERIA NEGATIVE NEG /HPF [facility] 07/14/2006 9:20 AM COMPATIBILITY TEST ENGINEER 07/14/2006 9:21 AM COMPATIBILITY TEST ENGINEER [facility] URINE ORDERABLE S Performing Organization Address [facility] Co de Phone Number [facility] * (ABNORMAL) URINALYSIS-CHEMICAL STRIP (07/14/2006 9:20 AM COMPATIBILITY TEST ENGINEER) COLOR YELLOW [facility] SURINDER CLEAR [facility] [...] NEGATIVE NEG [facility] 07/14/2006 9:20 AM COMPATIBILITY TEST ENGINEER 07/14/2006 9:21 AM COMPATIBILITY TEST ENGINEER [facility] URINE ORDERABLE S GEORGIE RICHARD documented in this encounter Visit Diagnoses Not on filedocumented in this encounter Additional Health Concerns Infection Onset Date Last Indicated Resolved Time COVID-19 Rule Out 12/12/2019 12/12/2019 12/14/2019 12:07 PM CDT COVID-19 Rule Out 02/26/2020 02/26/2020 02/27/2020 9:11 PM CDT documented as of this encounter Care Teams Hotel Director Relationship Specialty Start Date End Date Cecil Ferraro MD [address] [place] [address] PCP - General 03/23/10 12/20/18 No Personal, Physician PCP - General 05/20/09 03/22/10 Cecil Ferraro MD [address] [address] PCP - General 04/24/09 05/19/09 Rossana Parekh MD PCP - General Family Medicine 12/21/18 11/25/19 Rossana Barron MD [address] [place] [address] PCP - General Family Medicine 11/26/19 Cecil Ferraro MD [address] [place] [address] 08/07/17 12/23/18 No Personal, Physician 08/07/17 12/23/18 Cecil Ferraro MD [address] [address] 08/07/17 12/23/18 Alejandrina Lake MD 08/07/17 12/23/18 Alejandrina Lake MD 08/07/17 12/23/18 documented as of this encounter Additional Source Comments PLEASE NOTE: Replies to this message will not be received.[facility] and [facility]
--- OUTSIDE RECORDS SUMMARY | 2024-05-08 08:25 | XMS_ITS | Encounter Summary ---
Author Organization [facility] [employer] [facility] Address [address] [place] [address] Care Team Providers Care Assembly Room Supervisor Name Role Phone Cecil Ferraro MD Primary Care Provider [phone] No Personal, Physician Primary Care Provider Geri vailable Cecil Ferraro MD Primary Care Provider + Cecil Ferraro MD Unavailable [phone] No Personal, Physician Unavailable Unavailab le Cecil Ferraro MD Unavailable [phone] Alejandrina Lake MD Unavailable Unavailable Alejandrina Lake MD Unavailable Unavailable Rossana Parekh MD Primary Care Provider Rossana Barron MD Primary Care Provider [phone] Encounter Details Date Type Department Care Team (Late st Contact Info) Description 03/06/2007 HIM Farm Crew Leader Generic Farm Crew Leader [address] [place] [address] Social History Tobacco Use Types Packs/Day Years [...] documented as of this encounter Care Teams Assembly Room Supervisor Relationship Specialty Start Date End Date Cecil Ferraro MD [address] [place] [address] PCP - General 03/23/10 12/20/18 No Personal, Physician PCP - General 05/20/09 03/22/10 Cecil Ferraro MD [facility] [address] [place], [place] [phone] PCP - General 04/24/09 05/19/09 Rossana Parekh MD PCP - General Family Medicine 12/21/18 11/25/19 Rossana Barron MD [address] [place] [id number] PCP - General Family Medicine 11/26/19 Cecil Ferraro MD [address] [place], [place] [address] 08/07/17 12/23/18 No Personal, Physician 08/07/17 12/23/18 Cecil Ferraro MD [address] [address] 08/07/17 12/23/18 Alejandrina Lake MD 08/07/17 12/23/18 Alejandrina Lake MD 08/07/17 12/23/18 documented as of this encounter Additional Source Comments PLEASE NOTE: Replies to this message will not be received.[facility]
--- OUTSIDE RECORDS SUMMARY | 2024-05-08 08:25 | XMS_ITS | Encounter Summary ---
Author Organization [facility] [employer] [facility] Address [address] [place] [address] Care Team Providers Care Occupational Therapist Home Based Name Role Phone Cecil Ferraro MD Primary Care Provider [phone] No Personal, Physician Primary Care Provider Geri vailable Cecil Ferraro MD Primary Care Provider + Cecil Ferraro MD Unavailable [phone] No Personal, Physician Unavailable Unavailab le Cecil Ferraro MD Unavailable [phone] Alejandrina Lake MD Unavailable Unavailable Alejandrina Lake MD Unavailable Unavailable Rossana Parekh MD Primary Care Provider Rossana Barron MD Primary Care Provider [phone] Encounter Details Date Type Department Care Team (Late st Contact Info) Description 01/09/[address] [id number] Social History Tobacco Use Types Packs/Day Years [...] documented as of this encounter Care Teams Occupational Therapist Home Based Relationship Specialty Start Date End Date Cecil Ferraro MD [address] [place], [place] [address] PCP - General 03/23/10 12/20/18 No Personal, Physician PCP - General 05/20/09 03/22/[address] [facility] [address] [place] [address] PCP - General 04/24/09 05/19/09 Rossana Parekh MD PCP - General Family Medicine 12/21/18 11/25/19 Rossana Barron MD [address] [place] [phone] PCP - General Family Medicine 11/26/19 Cecil Ferraro MD [address] [place] [address] 08/07/17 12/23/18 No Personal, Physician 08/07/17 12/23/18 Cecil Ferraro MD [address] [place] [address] 08/07/17 12/23/18 Alejandrina Lake MD 08/07/17 12/23/18 Alejandrina Lake MD 08/07/17 12/23/18 documented as of this encounter Additional Source Comments PLEASE NOTE: Replies to this message will not be received.[facility] and [facility]
--- OUTSIDE RECORDS SUMMARY | 2024-05-08 08:25 | XMS_ITS | Encounter Summary ---
Author Organization [facility] [employer] [facility] Address [address] [place] [address] Care Team Providers Care Station Inspector Name Role Phone Cecil Ferraro MD Primary Care Provider [phone] No Personal, Physician Primary Care Provider Geri vailable Cecil Ferraro MD Primary Care Provider + Cecil Ferraro MD Unavailable [phone] No Personal, Physician Unavailable Unavailab le Cecil Ferraro MD Unavailable [phone] Alejandrina Lake MD Unavailable Unavailable Alejandrina Lake MD Unavailable Unavailable Rossana Parekh MD Primary Care Provider [phone] Rossana Barron MD Primary Care Provider [phone] Encounter Details Date Type Department Care Team (Late st Contact Info) Description 10/31/2006 Clinic Encounter [facility] Dermatology [address] [place] [address] Henry Sandra MD Social History Tobacco Use Types Packs/Day Years Used Date Smoking Tobacco: Never Assessed Sex and Gender Information Value Date Recorded Sex Assigned at Not on file Gender Identity Not on file Sexual Orientation Not on file documented as of this encounter Progress Notes * Henry Sandra MD - 11/07/2006 12:00 AM CDT Rebekah Leroy : 1960 E: Sid Sandra MD/[facility] DERMATOLOGY OFFICE VISIT CHART: [id number] Date of Service: 11/07/2006 Doc #: [id number] P Attending Physician: Alejandrina Lake MD SUBJECTIVE: [...] histologic evaluation to [facility] in [place]. Dressing was applied. Wound care instructions were [...] documented as of this encounter Care Teams Station Inspector Relationship Specialty Start Date End Date Cecil Ferraro MD [address] [place] [address] PCP - General 03/23/10 12/20/18 No Personal, Physician PCP - General 05/20/09 03/22/10 Cecil [facility] [address] [place] [address] PCP - General 04/24/09 05/19/09 Rossana Parekh MD PCP - General Family Medicine 12/21/18 11/25/19 Rossana Barron MD [address] [place] [address] PCP - General Family Medicine 11/26/19 Cecil Ferraro MD [address] [place] [address] 08/07/17 12/23/18 No Personal, Physician 08/07/17 12/23/18 Cecil Ferraro MD [facility] [address] [place] [address] 08/07/17 12/23/18 Alejandrina Lake MD 08/07/17 12/23/18 Alejandrina Lake MD 08/07/17 12/23/18 documented as of this encounter Additional Source Comments PLEASE NOTE: Replies to this message will not be received.[facility] and [facility]
--- OUTSIDE RECORDS SUMMARY | 2024-05-08 08:25 | XMS_ITS | Encounter Summary ---
Author Organization [facility] [employer] [facility] Address [address] [place] [address] Care Team Providers Care Agricultural Chemist Name Role Phone Cecil Ferraro MD Primary Care Provider [phone] No Personal, Physician Primary Care Provider Geri vailable Cecil Ferraro MD Primary Care Provider + Cecil Ferraro MD Unavailable [phone] No Personal, Physician Unavailable Unavailab le Cecil Ferraro MD Unavailable [phone] Alejandrina Lake MD Unavailable Unavailable Alejandrina Lake MD Unavailable Unavailable Rossana Parekh MD Primary Care Provider Rossana Barron MD Primary Care Provider [phone] Encounter Details Date Type Department Care Team (Late st Contact Info) Description 11/29/[address] [phone] Social History Tobacco Use Types Packs/Day Years [...] documented as of this encounter Care Teams Agricultural Chemist Relationship Specialty Start Date End Date Cecil Ferraro MD [address] [place], [place] [address] PCP - General 03/23/10 12/20/18 No Personal, Physician PCP - General 05/20/09 03/22/10 Cecil Ferraro MD [address] [place] [address] PCP - General 04/24/09 05/19/09 Rossana Parekh MD PCP - General Family Medicine 12/21/18 11/25/19 Rossana Barron MD [address] [place] [address] PCP - General Family Medicine 11/26/19 Cecil Ferraro MD [address] [place] [address] 08/07/17 12/23/18 No Personal, Physician 08/07/17 12/23/18 Cecil Ferraro MD [facility] [address] [place] [address] 08/07/17 12/23/18 Alejandrina Lake MD 08/07/17 12/23/18 Alejandrina Lake MD 08/07/17 12/23/18 documented as of this encounter Additional Source Comments PLEASE NOTE: Replies to this message will not be received.[facility]
--- OUTSIDE RECORDS SUMMARY | 2024-05-08 08:25 | XMS_ITS | Encounter Summary ---
Author Organization [facility] [employer] [facility] Address [address] [place] [address] Care Team Providers Care Academic Affairs Manager Name Role Phone Cecil Ferraro MD Primary Care Provider [phone] No Personal, Physician Primary Care Provider Geri vailable Cecil Ferraro MD Primary Care Provider + Cecil Ferraro MD Unavailable [phone] No Personal, Physician Unavailable Unavailab le Cecil Ferraro MD Unavailable [phone] Alejandrina Lake MD Unavailable Unavailable Alejandrina Lake MD Unavailable Unavailable Rossana Parekh MD Primary Care Provider Rossana Barron MD Primary Care Provider [phone] Encounter Details Date Type Department Care Team (Late st [facility] Info) Description 03/28/[address] [phone] Social History Tobacco Use Types Packs/Day Years [...] documented as of this encounter Care Teams Academic Affairs Manager Relationship Specialty Start Date End Date Cecil Ferraro MD [address] [place], [place] [address] PCP - General 03/23/10 12/20/18 No Personal, Physician PCP - General 05/20/09 03/22/10 Cecil Ferraro MD [facility] [address] [place], [place] [phone] PCP - General 04/24/09 05/19/09 Rossana Parekh MD PCP - General Family Medicine 12/21/18 11/25/19 Rossana Barron MD [address] [place] [address] PCP - General Family Medicine 11/26/19 Cecil Ferraro MD [address] [place] [address] 08/07/17 12/23/18 No Personal, Physician 08/07/17 12/23/18 Cecil Ferraro MD [address] [place] [address] 08/07/17 12/23/18 Alejandrina Lake MD 08/07/17 12/23/18 Alejandrina Lake MD 08/07/17 12/23/18 documented as of this encounter Additional Source Comments PLEASE NOTE: Replies to this message will not be received.[facility] and [facility]
--- OUTSIDE RECORDS SUMMARY | 2024-05-08 08:25 | XMS_ITS | Encounter Summary ---
Author Organization [facility] [employer] [facility] Address [address] [place] [address] Care Team Providers Care Electrical Manager Name Role Phone Cecil Ferraro MD Primary Care Provider [phone] No Personal, Physician Primary Care Provider Geri vailable Cecil Ferraro MD Primary Care Provider + Cecil Ferraro MD Unavailable [phone] No Personal, Physician Unavailable Unavailab le Cecil Ferraro MD Unavailable [phone] Alejandrina Lake MD Unavailable Unavailable Alejandrina Lake MD Unavailable Unavailable Rossana Parekh MD Primary Care Provider Rossana Barron MD Primary Care Provider [phone] Encounter Details Date Type Department Care Team (Late st Contact Info) Description 01/06/2006 Clinic Encounter [facility] Obstetrics/Gynecology [address] [place], [place] [phone] Alejandrina Lake MD Social History Tobacco Use Types Packs/Day Years Used Date Smoking Tobacco: Never Assessed Sex and Gender Information Value Date Recorded Sex Assigned at Not on file Gender Identity Not on file Sexual Orientation Not on file documented as of this encounter Progress Notes * Alejandrina Lake MD - 01/06/2006 12:00 AM [facility] Rebekah Leroy [id number] [...] home. Does breast self exam. Traveled to [place] in July. No concerns about domestic violence. [...] maintenance. Alejandrina Lake MD/cdg P A Doc#: [id number] cc: documented in this encounter Plan of Treatment Not on file documented as of this encounter Procedures Procedure Name Priority Date/Time Associated Diagnosis Comments UNKNOWN Routine 01/06/2006 3:25 PM CDT documented in this encounter Results * UNKNOWN (01/06/2006 3:25 PM CDT) PT INS MEDICARE,CAID,LALITO MPUS(Y NO [facility] ICD-9 CODE V72.3 [facility] HISTORY/SYMPTOMS (FREE TE PHYSICAL [facility] SCR PAP [id number] (Y/N) YES [facility] DIAG PAP [id number] (Y/N) NO [facility] HIGH RISK (Y/N) [...] CDT Alejandrina Lake MD [facility] Organization Address City/State/ZIP Co de Phone Number [facility] documented in this encounter Visit Diagnoses Not on filedocumented in this encounter Additional Health Concerns Infection Onset Date Last Indicated Resolved Time COVID-19 Rule Out 12/12/2019 12/12/2019 12/14/2019 12:07 PM CDT COVID-19 Rule Out 02/26/2020 02/26/2020 02/27/2020 9:11 PM CDT documented as of this encounter Care Teams Electrical Manager Relationship Specialty Start Date End Date Cecil Ferraro MD [address] [place] [place] [address] PCP - General 03/23/10 12/20/18 No Personal, Physician PCP - General 05/20/09 03/22/10 [place] [address] PCP - General 04/24/09 05/19/09 Rossana Parekh MD PCP - General Family Medicine 12/21/18 11/25/19 Rossana Barron MD [address] [place] [address] PCP - General Family Medicine 11/26/19 Cecil Ferraro MD [address] [place] [place] [address] 08/07/17 12/23/18 No Personal, Physician 08/07/17 12/23/18 Cecil Ferraro MD [facility] [address] [place] [address] 08/07/17 12/23/18 Alejandrina Lake MD 08/07/17 12/23/18 Alejandrina Lake MD 08/07/17 12/23/18 documented as of this encounter Additional Source Comments PLEASE NOTE: Replies to this message will not be received.[facility] and [facility]
--- OUTSIDE RECORDS SUMMARY | 2024-05-08 08:25 | XMS_ITS | Encounter Summary ---
Author Organization [facility] [employer] [facility] Address [address] [place] [address] Care Team Providers Care Supervisor Asbestos Textile Name Role Phone Cecil Ferraro MD Primary Care Provider [phone] No Personal, Physician Primary Care Provider Geri vailable Cecil Ferraro MD Primary Care Provider + Cecil Ferraro MD Unavailable [phone] No Personal, Physician Unavailable Unavailab le Cecil Ferraro MD Unavailable [phone] Alejandrina Lake MD Unavailable Unavailable Alejandrina Lake MD Unavailable Unavailable Rossana Parekh MD Primary Care Provider [phone] Rossana Barron MD Primary Care Provider [phone] Encounter Details Date Type Department Care Team (Late st Contact Info) Description 01/16/2007 [facility] Institution Librarian Generic Institution Librarian [address] [place] [address] Social History Tobacco Use Types Packs/Day Years [...] as of this encounter Care Teams Supervisor Asbestos Textile Relationship Specialty Start Date End Date Cecil Ferraro MD [address] [place] [address] PCP - General 03/23/10 12/20/18 No Personal, Physician PCP - General 05/20/09 03/22/10 Cecil Ferraro MD [facility] [address] [place], [place] [id number] PCP - General 04/24/09 05/19/09 Rossana Parekh MD PCP - General Family Medicine 12/21/18 11/25/19 Rossana Barron MD [address] [place] [phone] PCP - General Family Medicine 11/26/19 Cecil Ferraro MD [address] [place], [place] [address] 08/07/17 12/23/18 No Personal, Physician 08/07/17 12/23/18 Cecil Ferraro MD [address] [address] 08/07/17 12/23/18 Alejandrina Lake MD 08/07/17 12/23/18 Alejandrina Lake MD 08/07/17 12/23/18 documented as of this encounter Additional Source Comments PLEASE NOTE: Replies to this message will not be received.[facility] and [facility]
--- OUTSIDE RECORDS SUMMARY | 2024-05-08 08:25 | XMS_ITS | Encounter Summary ---
Author Organization [facility] [employer] [facility] Address [address] [place] [address] Care Team Providers Care Dethistler Operator Name Role Phone Cecil Ferraro MD Primary Care Provider [phone] No Personal, Physician Primary Care Provider Geri vailable Cecil Ferraro MD Primary Care Provider + Cecil Ferraro MD Unavailable [phone] No Personal, Physician Unavailable Unavailab le Cecil Ferraro MD Unavailable [phone] Alejandrina Lake MD Unavailable Unavailable Alejandrina Lake MD Unavailable Unavailable Rossana Parekh MD Primary Care Provider [phone] Rossana Barron MD Primary Care Provider [phone] Encounter Details Date Type Department Care Team (Late st Contact Info) Description 04/05/2007 HIM Brand Planner Generic Brand Planner [address] [place] [address] Social History Tobacco Use Types Packs/Day Years [...] documented as of this encounter Care Teams Dethistler Operator Relationship Specialty Start Date End Date Cecil Ferraro MD [address] [place] [address] PCP - General 03/23/10 12/20/18 No Personal, Physician PCP - General 05/20/09 03/22/10 Cecil Ferraro MD [facility] [address] [place], [place] [id number] PCP - General 04/24/09 05/19/09 Rossana Parekh MD PCP - General Family Medicine 12/21/18 11/25/19 Rossana Barron MD [address] [place] [address] PCP - General Family Medicine 11/26/19 Cecil Ferraro MD [address] [place], [place] [address] 08/07/17 12/23/18 No Personal, Physician 08/07/17 12/23/18 Cecil Ferraro MD [address] [address] 08/07/17 12/23/18 Alejandrina Lake MD 08/07/17 12/23/18 Alejandrina Lake MD 08/07/17 12/23/18 documented as of this encounter Additional Source Comments PLEASE NOTE: Replies to this message will not be received.[facility] and [facility]
--- OUTSIDE RECORDS SUMMARY | 2024-05-08 08:25 | XMS_ITS | Clinical Summary ---
Author Organization [employer] Address [place], [place] [address] Care Team Providers Care Web Content Writer Name Role Phone Julieth Callejas MD Primary Care Provider [phone] Allergies Active Allergy Reactions Criticality Noted Date Comments Metformin Rash High 10/05/2021 Tetracycline Rash,Photosensitivity 07/11/2010 Medications Medication Sig Dispensed Refills Start Date End Date Status sensor for continuous blood glucose monitor (CGM)Indications :Type 2 diabetes mellitus without complication, without long-term current use of insulin (HC) To be used to read blood sugars, follow copy room technician directions. 9 Each 3 03/14/2023 Active yjo35-gjrjwkleh- fcjk-vfrj-oxhf 350-250 mg/7.8 gram powd Mix in liquid then take by mouth. 07/28/2023 Active cholecalciferol, Vitamin D3, (Vitamin D-3) 5,000 unit tab tablet Take 1 Tablet (5,000 units) by mouth once daily. 07/28/2023 Active FreeStyle Jamel 3 Sensor for continuous blood glucose monitor (CGM)Indications :Type 2 diabetes mellitus without complication, without long-term current use of insulin (HC) TO BE USED TO READ BLOOD SUGARS, FOLLOW HARDNESS INSPECTOR DIRECTIONS. 6 Each 3 04/17/2024 Active sensor (FreeStyle Jamel 3 Sensor) for continuous blood glucose monitor (CGM)Indications :Type 2 diabetes mellitus without complication, without long-term current use of insulin (HC) To be used to read blood sugars, change sensor every 14 days. 6 Each 3 04/17/2024 Active FreeStyle Jamel 3 Sensor for continuous blood glucose monitor (CGM)Indications :Type 2 diabetes mellitus without complication, without long-term current use of insulin (HC) To be used to read blood sugars, follow copy room technician directions. 9 Each 3 03/14/2023 4 Discontinued Active Problems Problem Noted Date Diagnosed Date History of colon polyps 02/28/2023 Overview (02/28/2023): Colonoscopy 11/2017 2-SSA, repeat in 5 years Colonoscopy 02/2023 diverticulosis, repeat in 5 years Pap smear for cervical cancer screening 09/08/19 22 Overview (11/12/2021): 09/2021-NIL/HPVneg. Plan: Pap/HPV due 09/2026 Type 2 diabetes mellitus wit hout complication, without long-term current use of insulin 10/29/2020 Mixed hyperlipidemia 01/04/2018 Overview (07/26/2023): Mixed hyperlipidemia Hyperlipidemia Generalized anxiety disorder 09/14/2017 Atopic dermatitis 11/05/2013 Overview (07/26/2023): Eczema Left Peroneal tendonitis 07/11/2010 History of malignant melanoma 12/08/2007 Left edema of subcutaneous tissues of distal lef t calf Encounters Date Type Department Care Team Description 04/17/[address] [phone] Julieth Callejas MD Medication Management (FreeStyle Jamel 3 Sensor for continuous blood glucose monitor (CGM) /) 04/16/2024 Refill [facility] [address] [place] [phone] Julieth Callejas MD Refill Request (Freestyle Jamel 3 Sensor) from Last 3 Months Immunizations Name Administration Dates Next Due COVID-19 vaccine (Moderna 10 0mcg/0.5mL) NEREYDA LUCAS 08/17/2020,07/20/2020 Hepatitis B (Adult) 03/11/2005,07/06/2004,2003 Td (Age [...] 2 07/28/2023 Social Connections Answer Date Recorded Do you often feel lonely or isolated from those around you? 0 07/28/2023 Financial Resource Strain Answer Date R ecorded Difficulty of Paying Living Expenses 3 07/28/2023 Difficulty of Paying Living Expenses Not on file 07/28/2023 Food Insecurity Answer Date Recorded Do you worry your food will run out before you are able to buy more? 1 07/28/2023 Transportation Needs Answer Date Record ed Does lack of transportation keep you from medica l appointments? 1 07/28/2023 Does lack of transportation keep you from work, meetings or getting things that you need? 1 07/28/2023 Housing Stability Answer Date Recorded What is your housing situation today? 1 07/28/2023 Sex and Gender Information Value Date Recorded Sex Assigned at Not on file Gender Identity Not on file Sexual Orientation Not on file Obstetrics History Last Filed Vital Signs Vital Sign Reading Time Taken Comments Blood Pressure 124/78 07/28/2023 12:13 PM [employer] Pulse 76 07/28/2023 12:13 PM [employer] Temperature - - Respiratory Rate 16 02/28/2023 9:15 AM CDT Oxygen Saturation 93% 02/28/2023 9:15 AM CDT Inhaled Oxygen Concentration - - Weight 97.5 kg (215 lb) 07/28/2023 12:13 PM [employer] M[employer] with boots Height 166.4 cm (5' 5.5) [...] day) for age 18+ 01/05/2023 01/05/2022, 10/05/2021 Mammogram for age 45-75 03/03/2024 03/03/2023, 12/27 COVID-19 vaccine series ( season) 2024 02/10/2022, 05/29/2021, 08/17/2020, Additional history exists Influenza for age 50-64 03/10/2024 Depression screening [...] MEASURED LDL Add On 07/28/2023 12:00 PM [employer] M[employer] Type 2 diabetes mellitus without complication, without long-term current use of insulin (HC) XR MAMMO BILAT SCREENING Routine 03/03/2023 10:15 AM CDT Encounter for screening mammogram for malignant neoplasm of breast COLONOSCOPY SCREENING Routine 02/28/2023 7:51 AM CDT Screening for colon cancer HPV HIGH RISK Routine 10/05/2021 8:50 AM CDT Screening for cervical cancer from Last 3 Months or Most Recently Relevant to Health Maintenance Results * (ABNORMAL) LIPID PANEL W REFLEX MEASURED LDL (07/28/2023 12:00 PM [employer] M[employer]ER) CHOLESTEROL,TOTAL 231(H) 100 - 199 mg/dL 07/29/2023 6:20 AM [facility] Comment: Cholesterol, Total Reference Ranges Desirable <200 mg/dL Borderline 200-239 mg/dL High >=240 mg/dL TRIGLYCERIDES 200(H) <150 mg/dL 07/29/2023 6:20 AM [facility] HDL CHOLESTEROL 51 >40 mg/dL 6:20 AM [facility] NON-HDL CHOLESTEROL 180(H) <145 mg/dl 07/29/2023 6:20 AM [facility] CHOL/HDL RATIO 4.53(H) <4.50 07/29/2023 6:20 AM [facility] LDL CHOLESTEROL 140(H) <=130 mg/dL 07/29/2023 6:20 AM [facility] VLDL CHOLESTEROL 40(H) <=30 mg/dL 07/29/2023 6:20 AM [facility] PROVIDER ORDERED STATUS RANDOM 07/29/2023 6:20 AM [facility] Blood BLOOD SPECIMEN / Unknown Venipuncture / Unknown 07/28/2023 12:00 PM [employer] 07/28/2023 12:00 PM [facility] Julieth Callejas MD CHEMISTRY [facility] [address] [place] [address], * XR MAMMO BILAT SCREENING (03/03/2023 10:15 [...] health care provider. XR MAMMO BILAT SCREENING [[id number]] CLINICAL HISTORY: ??This is an asymptomatic 62 y.o. patient. INDICATION FOR EXAM: Mammogram Screening. TECHNIQUE: CC & MLO views were obtained. ??This study was evaluated with the assistance of Computer-Aided Detection. COMPARISON FILM: Yes 12/27/21 ADARTIS ?? FINDINGS: ??The breasts are almost entirely [...] adequate candidate for conscious sedation. The endoscope [id number] was passed through the anus andadvanced to [...] 7:51 AM Procedure Code(s): --- Professional --- 00096, Colonoscopy, flexible; diagnostic, including collection of specimen(s) bybrushing or washing, when performed (separateprocedure) Diagnosis Code(s): --- Professional --- Z86.010, Personal history of colonicpolyps K57.30, Diverticulosis of large intestine without perforation or abscess withoutbleeding CPT copyright 2021 [employer]. All rights reserved. The codes documented in this report are preliminary and upon atv mechanic reviewmay be revised to meet current compliance requirements. Scope In: 8:42:34 AM Scope Withdrawal Time 0 hours 7 minutes 51 seconds Scope Out: 8:55:20 AM Casa Hatch MD PROCEDURE ORD * HPV HIGH RISK (10/05/2021 8:50 AM CDT) TYPE 16 Negative Negative 10/07/2021 10:54 AM CDT [facility] TYPE 18 Negative Negative 10/07/2021 10:54 AM CDT [facility] OTHER HIGH RISK TYPES Negative Negative 10/07/2021 10:54 AM CDT [facility] Other (Cervical) Non-Blood / Unknown 10/05/2021 8:50 AM CDT 10/05/2021 3:32 PM CDT Narrative [facility] - 10/07/2021 10:54 AM CDT HPV types 16, 18, 31, 33, 35, 39, 45, 51, 52, 56, 58, 59, 66 and 68 DNA were undetectable or below the pre-set threshold. Methodology: C[address]ra Archie 4800 HPV Test Daija WYATT MICROBIOLOGY [facility] [address] [place] [address], [place] from Last 3 Months or Most Recently Relevant to Health Maintenance Care Teams Web Content Writer Relationship Specialty Start Date End Date Julieth Callejas MD [address] [place] [address] PCP - General Internal Medicine 07/11/23
--- OUTSIDE RECORDS SUMMARY | 2024-05-08 08:25 | XMS_ITS | Encounter Summary ---
Author Organization [facility] [employer] [email or web address] Address [address] [place] [address] Care Team Providers Care Automotive Brake Technician Name Role Phone Cecil Ferraro MD Primary Care Provider [phone] No Personal, Physician Primary Care Provider Geri vailable Cecil Ferraro MD Primary Care Provider + Cecil Ferraro MD Unavailable [phone] No Personal, Physician Unavailable Unavailab le Cecil Ferraro MD Unavailable [phone] Alejandrina Lake MD Unavailable Unavailable Alejandrina Lake MD Unavailable Unavailable Rossana Parekh MD Primary Care Provider Rossana Barron MD Primary Care Provider [phone] Encounter Details Date Type Department Care Team (Late st [facility] Info) Description 03/05/[address] [id number] Social History Tobacco Use Types Packs/Day Years [...] documented as of this encounter Care Teams Automotive Brake Technician Relationship Specialty Start Date End Date Cecil Ferraro MD [address] [place], [place] [address] PCP - General 03/23/10 12/20/18 No Personal, Physician PCP - General 05/20/09 03/22/10 Cecil Ferraro MD [facility] [address] [place], [place] [phone] PCP - General 04/24/09 05/19/09 Rossana Parekh MD PCP - General Family Medicine 12/21/18 11/25/19 Rossana Barron MD [address] [place] [phone] PCP - General Family Medicine 11/26/19 Cecil Ferraro MD [address] [place] [address] 08/07/17 12/23/18 No Personal, Physician 08/07/17 12/23/18 Cecil Ferraro MD [place] [place] [address] [place] [address] 08/07/17 12/23/18 Alejandrina Lake MD 08/07/17 12/23/18 Alejandrina Lake MD 08/07/17 12/23/18 documented as of this encounter Additional Source Comments PLEASE NOTE: Replies to this message will not be received.[facility] and [facility]
--- OUTSIDE RECORDS SUMMARY | 2024-05-08 08:25 | XMS_ITS | Referral Summary ---
Author Organization [facility] Address [address] [place] [address] Care Team Providers Care Training Facilitator Name Role Phone Rossana Barron MD Primary Care Provider [phone] Allergies Active Allergy Reactions Criticality Noted Date [...] 208(H) <200 mg/dL 10/27/2020 5:44 PM CDT [facility] Triglycerides 279(H) 30 - 150 mg/dL 10/27/2020 5:44 PM CDT [facility] Cholesterol, LDL (Calculated) 111 0 - 159 mg/dL 10/27/2020 5:44 PM CDT [facility] Cholesterol, HDL 41 >40 mg/dL 10/28/19 21 5:44 PM CDT [facility] Cholesterol, vLDL 56 mg/dL 021 5:44 PM CDT [facility] Blood VENOUS BLOOD / Unknown Venipuncture / Unknown 10/27/2020 2:59 PM CDT 10/27/2020 2:59 PM CDT Rossana Parekh MD LAB CHEMISTRY ORDERA BLES [facility] [address] [place], [place] [id number] * PAP TEST (12/21/2018 9:00 AM CDT) Specimen Adequacy Satisfactory for evaluation: Endocervical component present. Satisfactory for evaluation: Partially obscured by inflammation. 12/26/2018 2:25 PM CDT [facility] Interpretation Negative for intraepithelial lesion or malignancy. 12/26/2018 2:25 PM CDT [facility] Reflex? Reflex if ASCUS only 12/26/2018 2:25 PM CDT [facility] Disclaimer/Infor mational Comment The Pap test [...] additional confirmatory testing. 12/26/2018 2:25 PM CDT [facility] Other PART OF UTERINE CERVIX / Unknown 12/21/2018 9:00 AM CDT 12/25/2018 5:12 PM CDT Rossana Parekh MD LAB CYTOLOGY ORDERAB LES [facility] [address] [place] [address], * COLONOSCOPY (11/13/2017 8:40 AM CDT) 11/13/2017 8:40 AM CDT Narrative [facility] - 11/13/2017 9:39 AM CDT [facility] Patient Name: Rebekah Leroy Procedure Date: 11/13/2017 8:40 AM Date of : 1960 Admit Type: Outpatient Age: 57 Room: [facility] Gender: Female Note Status: Finalized Attending [...] and oxygen saturations ?were monitored continuously. The [id number] was introduced ?through the anus and advanced [...] 8:40 AM Cecil Ferraro MD GI PROCEDURES [facility] * HPV HIGH RISK (02/03/2011 5:00 PM CDT) HPV TYPE 16 NEGATIVE NEG [facility] HPV TYPE 18 NEGATIVE NEG [facility] HPV TYPE 31 NEGATIVE NEG [facility] [employer] SERVICES [facility] HPV TYPE 33 NEGATIVE NEG [facility] HPV TYPE 35 NEGATIVE NEG [facility] HPV TYPE 39 NEGATIVE NEG [facility] HPV TYPE 45 NEGATIVE NEG [facility] HPV TYPE 51 NEGATIVE NEG [facility] HPV TYPE 52 NEGATIVE NEG [facility] HPV TYPE 56 NEGATIVE [facility] HPV TYPE 58 NEGATIVE NEG [facility] HPV TYPE 59 NEGATIVE [facility] HPV TYPE 66 NEGATIVE [facility] HPV TYPE 68 NEGATIVE NEG [facility] Comment: Methodology: The HPV-HR QUAD test is designed to detect and identify high risk HPV types 16, 18, 31, 33, 35, 39, 45, 51, 52, 56, 58, 59, 66, and 68. Genomic DNA was extracted from the submitted SurePath sample using the [employer] HPV sample processing kit. The HPV-HR assay includes five major processes: 1) Multiplex PCR amplification of purified DNA 2) Fluorescent label incorporation using analyte specific primer extension (ASPE) 3) Hybridization of the labeled ASPE ??to a microarray followed by washing 4) Scanning of the microarray and 5) Signal detection and analysis. The analytical and performance characteristics of this test were validated by [facility] [employer] [facility] pursuant to Clinical Laboratory Improvement Amendments (CLIA [...] Alejandrina Lake MD LAB SEROLOGY ORDERAB LES [facility] [address] [place] [address] [phone] [id number] * HEPATITIS C ANTIBODY (11/29/2001 12:09 PM CDT) HEPATITIS C ANTIBODY NONREACTIVE NONR [facility] HEPATITIS C ANTIBODY A NONREACTIVE RESULT INDICATES THE ABSENCE OF DETECTABLE LEVELS OF ANTIBODY TO HEPATITIS C VIRUS. AT PRESENT, THERE IS NO RECOGNIZED STANDARD FOR EVALUATING THE PRESENCE OR ABSENCE OF HEPATITIS C VIRUS ANTIBODIES INHUMAN BLOOD. THEREFORE, THIS RESULT DOES NOT PRECLUDE EXPOSURE TO OR INFECTION WITH HEPATITIS C VIRUS. [facility] 11/29/2001 12:0 9 PM CDT Marnie Zazueta MD LAB SEROLOGY ORDERAB LES [facility] [address] [place] [address] from Last 3 Months or Most Recently Relevant to Health Maintenance Care Teams Training Facilitator Relationship Specialty Start Date End Date Rossana Barron MD [address] [place] [address] PCP - General Family Medicine 11/26/19 Additional Source Comments PLEASE NOTE: Replies to this message will not be received.[facility] and [facility]
--- OUTSIDE RECORDS SUMMARY | 2024-05-08 08:25 | XMS_ITS | Encounter Summary ---
Author Organization [facility] Address [address] [place] [address] Care Team Providers Care Customer Account Specialist Name Role Phone Cecil Ferraro MD Primary Care Provider [phone] No Personal, Physician Primary Care Provider Geri vailable Cecil Ferraro MD Primary Care Provider + Cecil Ferraro MD Unavailable [phone] No Personal, Physician Unavailable Unavailab le Cecil Ferraro MD Unavailable Alejandrina Lake MD Unavailable Unavailable Alejandrina Lake MD Unavailable Unavailable Rossana Parekh MD Primary Care Provider [phone] Rossana Barron MD Primary Care Provider [phone] Encounter Details Date Type Department Care Team (Late st Contact Info) Description 01/17/2007 HIM Telephonic Case Manager Generic Telephonic Case Manager [address] [place] [address] Social History Tobacco Use Types Packs/Day Years [...] documented as of this encounter Care Teams Customer Account Specialist Relationship Specialty Start Date End Date Cecil Ferraro MD [address] [place] [address] PCP - General 03/23/10 12/20/18 No Personal, Physician PCP - General 05/20/09 03/22/10 Cecil Ferraro MD [facility] [address] [place], [place] [phone] PCP - General 04/24/09 05/19/09 Rossana Parekh MD PCP - General Family Medicine 12/21/18 11/25/19 Rossana Barron MD [address] [place] [phone] PCP - General Family Medicine 11/26/19 Cecil Ferraro MD [address] [place], [place] [address] 08/07/17 12/23/18 No Personal, Physician 08/07/17 12/23/18 Cecil Ferraro MD [address] [address] 08/07/17 12/23/18 Alejandrina Lake MD 08/07/17 12/23/18 Alejandrina Lake MD 08/07/17 12/23/18 documented as of this encounter Additional Source Comments PLEASE NOTE: Replies to this message will not be received.[facility] and [facility]
--- OUTSIDE RECORDS SUMMARY | 2024-05-08 08:25 | XMS_ITS | Encounter Summary ---
Author Organization [facility] [employer] Address [address] [place] [address] Care Team Providers Care Peanut Salter Name Role Phone Cecil Ferraro MD Primary Care Provider [phone] No Personal, Physician Primary Care Provider Geri vailable Cecil Ferraro MD Primary Care Provider + Cecil Ferraro MD Unavailable [phone] No Personal, Physician Unavailable Unavailab le Cecil Ferraro MD Unavailable [phone] Alejandrina Lake MD Unavailable Unavailable Alejandrina Lake MD Unavailable Unavailable Rossana Parekh MD Primary Care Provider [phone] Rossana Barron MD Primary Care Provider [phone] Encounter Details Date Type Department Care Team (Late st Contact Info) Description 03/22/2007 Clinic Encounter [facility] Obstetrics/Gynecology [address] [place] [address] Alejandrina Lake MD Social History Tobacco Use Types Packs/Day Years Used Date Smoking Tobacco: Never Assessed Sex and Gender Information Value Date Recorded Sex Assigned at Not on file Gender Identity Not on file Sexual Orientation Not on file documented as of this encounter Progress Notes * Alejandrina Lake MD - 03/29/2007 12:00 AM CDT [facility] Rebekah Leroy [id number] 03/29/2007 [...] normal. Alejandrina Lake MD/brandieg P A Doc#: [id number] cc: documented in this encounter Plan of [...] LAB CHEMISTRY ORDERA BLES Performing Organization Address [facility] Co de Phone Number [facility] * [...] documented as of this encounter Care Teams Peanut Salter Relationship Specialty Start Date End Date Cecil Ferraro MD [address] [place] [address] PCP - General 03/23/10 12/20/18 No Personal, Physician PCP - General 05/20/09 03/22/10 Cecil Ferraro MD [facility] [address] [place] [address] PCP - General 04/24/09 05/19/09 Rossana Parekh MD PCP - General Family Medicine 12/21/18 11/25/19 Rossana Barron MD [address] [place] [phone] PCP - General Family Medicine 11/26/19 Cecil Ferraro MD [address] [place] [address] 08/07/17 12/23/18 No Personal, Physician 08/07/17 12/23/18 Cecil Ferraro MD [address] [address] 08/07/17 12/23/18 Alejandrina Lake MD 08/07/17 12/23/18 Alejandrina Lake MD 08/07/17 12/23/18 documented as of this encounter Additional Source Comments PLEASE NOTE: Replies to this message will not be received.[facility] and [facility]
--- OUTSIDE RECORDS SUMMARY | 2024-05-08 08:25 | XMS_ITS | Encounter Summary ---
Author Organization [facility] Address [address] [place] [address] Care Team Providers Care Superintendent Local Name Role Phone Cecil Ferraro MD Primary Care Provider [phone] No Personal, Physician Primary Care Provider Geri vailable Cecil Ferraro MD Primary Care Provider + Cecil Ferraro MD Unavailable [phone] No Personal, Physician Unavailable Unavailab le Cecil Ferraro MD Unavailable [phone] Alejandrina Lake MD Unavailable Unavailable Alejandrina Lake MD Unavailable Unavailable Rossana Parekh MD Primary Care Provider [phone] Rossana Barron MD Primary Care Provider [phone] Encounter Details Date Type Department Care Team (Late st Contact Info) Description 12/23/2003 [facility] [address] [place], [place] [address], [place] [phone] Unknown, [place] [address] Social History Tobacco Use Types Packs/Day Years [...] documented as of this encounter Care Teams Superintendent Local Relationship Specialty Start Date End Date Cecil Ferraro MD [address] [place] [id number] PCP - General 03/23/10 12/20/18 No Personal, Physician PCP - General 05/20/09 03/22/10 Cecil Ferraro MD [facility] [address] [place] [address] PCP - General 04/24/09 05/19/09 Rossana Parekh MD PCP - General Family Medicine 12/21/18 11/25/19 Rossana Barron MD [facility] [address] [place] [phone] PCP - General Family Medicine 11/26/19 Cecil Ferraro MD [address] [place] [address] 08/07/17 12/23/18 No Personal, Physician 08/07/17 12/23/18 Cecil Ferraro MD [address] [address] 08/07/17 12/23/18 Alejandrina Lake MD 08/07/17 12/23/18 Alejandrina Lake MD 08/07/17 12/23/18 documented as of this encounter Additional Source Comments PLEASE NOTE: Replies to this message will not be received.[facility]
--- OUTSIDE RECORDS SUMMARY | 2024-05-08 08:25 | XMS_ITS | Encounter Summary ---
Author Organization [facility] [employer] [facility] Address [address] [place] [address] Care Team Providers Care Mapper Name Role Phone Cecil Ferraro MD Primary Care Provider [phone]- [phone] No Personal, Physician Primary Care Provider Geri vailable Cecil Ferraro MD Primary Care Provider + Cecil Ferraro MD Unavailable [phone] No Personal, Physician Unavailable Unavailab le Cecil Ferraro MD Unavailable [phone] Alejandrina Lake MD Unavailable Unavailable Alejandrina Lake MD Unavailable Unavailable Rossana Parekh MD Primary Care Provider Rossana Barron MD Primary Care Provider [phone] Encounter Details Date Type Department Care Team (Late st Contact Info) Description 12/01/2006 HIM Surveillance Systems Engineer Generic Surveillance Systems Engineer [address] [place] [address] Social History Tobacco Use Types Packs/Day Years [...] documented as of this encounter Care Teams Mapper Relationship Specialty Start Date End Date Cecil Ferraro MD [address] [place] [address] PCP - General 03/23/10 12/20/18 No Personal, Physician PCP - General 05/20/09 03/22/10 Cecil Ferraro MD [facility] [address] [place], [place] [id number] PCP - General 04/24/09 05/19/09 Rossana Parekh MD PCP - General Family Medicine 12/21/18 11/25/19 Rossana Barron MD [address] [place] [address] PCP - General Family Medicine 11/26/19 Cecil Ferraro MD [address] [place], [place] [address] 08/07/17 12/23/18 No Personal, Physician 08/07/17 12/23/18 Cecil Ferraro MD [address] [address] 08/07/17 12/23/18 Alejandrina Lake MD 08/07/17 12/23/18 Alejandrina Lake MD 08/07/17 12/23/18 documented as of this encounter Additional Source Comments PLEASE NOTE: Replies to this message will not be received.[facility] and [facility]
--- OUTSIDE RECORDS SUMMARY | 2024-05-08 08:25 | XMS_ITS | Encounter Summary ---
Author Organization [facility] [employer] [facility] Address [address] [place] [address] Care Team Providers Care Chemist Helper Name Role Phone Cecil Ferraro MD Primary Care Provider [phone] No Personal, Physician Primary Care Provider Geri vailable Cecil Ferraro MD Primary Care Provider + Cecil Ferraro MD Unavailable [phone] No Personal, Physician Unavailable Unavailab le Cecil Ferraro MD Unavailable [phone] Alejandrina Lake MD Unavailable Unavailable Alejandrina Lake MD Unavailable Unavailable Rossana Parekh MD Primary Care Provider Rossana Barron MD Primary Care Provider [phone] Encounter Details Date Type Department Care Team (Late st Contact Info) Description 03/29/2007 HIM Mobile Homes Repairer Generic Mobile Homes Repairer [address] [place] [address] Social History Tobacco Use Types Packs/Day Years [...] documented as of this encounter Care Teams Chemist Helper Relationship Specialty Start Date End Date Cecil Ferraro MD [address] [place] [address] PCP - General 03/23/10 12/20/18 No Personal, Physician PCP - General 05/20/09 03/22/10 Cecil Ferraro MD [facility] [address] [place], [place] [id number] PCP - General 04/24/09 05/19/09 Rossana Parekh MD PCP - General Family Medicine 12/21/18 11/25/19 Rossana Barron MD [address] [place] [address] PCP - General Family Medicine 11/26/19 Cecil Ferraro MD [address] [place], [place] [address] 08/07/17 12/23/18 No Personal, Physician 08/07/17 12/23/18 Cecil Ferraro MD [address] [address] 08/07/17 12/23/18 Alejandrina Lake MD 08/07/17 12/23/18 Alejandrina Lake MD 08/07/17 12/23/18 documented as of this encounter Additional Source Comments PLEASE NOTE: Replies to this message will not be received.[facility] and [facility]
--- OUTSIDE RECORDS SUMMARY | 2024-05-08 08:25 | XMS_ITS | Encounter Summary ---
Author Organization [facility] Address [address] [place] [address] Care Team Providers Care Normalizer Name Role Phone Cecil Ferraro MD Primary Care Provider [phone] No Personal, Physician Primary Care Provider Geri vailable Cecil Ferraro MD Primary Care Provider + Cecil Ferraro MD Unavailable [phone] No Personal, Physician Unavailable Unavailab le Cecil Ferraro MD Unavailable [phone] Alejandrina Lake MD Unavailable Unavailable Alejandrina Lake MD Unavailable Unavailable Rossana Parekh MD Primary Care Provider Rossana Barron MD Primary Care Provider [phone] Encounter Details Date Type Department Care Team (Late st [facility] Info) Description 05/07/[address] [id number] Social History Tobacco Use Types Packs/Day Years [...] Comments DERMATOPATHOLOGY - S 05/07/2002 1:21 PM MINK FARMER documented in this encounter Results * DERMATOPATHOLOGY - S (05/07/2002 1:21 PM MINK FARMER) Narrative Procedure Note ROXI, SCAN - 05/07/2002 1:21 PM CST Scan Roxi PROCEDURE NOTE documented in this encounter Visit Diagnoses Not on filedocumented in this encounter Additional Health Concerns Infection Onset Date Last Indicated Resolved Time COVID-19 Rule Out 12/12/2019 12/12/2019 12/14/2019 12:07 PM CDT COVID-19 Rule Out 02/26/2020 02/26/2020 02/27/2020 9:11 PM CDT documented as of this encounter Care Teams Normalizer Relationship Specialty Start Date End Date Cecil Ferraro MD [address] [place], [place] [address] PCP - General 03/23/10 12/20/18 No Personal, Physician PCP - General 05/20/09 03/22/10 Cecil Ferraro MD [facility] [address] [place], [place] [phone] PCP - General 04/24/09 05/19/09 Rossana Parekh MD PCP - General Family Medicine 12/21/18 11/25/19 Rossana Barron MD [address] [place] [address] PCP - General Family Medicine 11/26/19 Cecil Ferraro MD [address] [place] [address] 08/07/17 12/23/18 No Personal, Physician 08/07/17 12/23/18 Cecil Ferraro MD [facility] [address] [place] [address] 08/07/17 12/23/18 Alejandrina Lake MD 08/07/17 12/23/18 Alejandrina Lake MD 08/07/17 12/23/18 documented as of this encounter Additional Source Comments PLEASE NOTE: Replies to this message will not be received.[facility] and [facility]
--- OUTSIDE RECORDS SUMMARY | 2024-05-08 08:25 | XMS_ITS | Encounter Summary ---
Author Organization [facility] Address [address] [place] [address] Care Team Providers Care Electronic Equipment Maint Tech Name Role Phone Cecil Ferraro MD Primary Care Provider [phone] No Personal, Physician Primary Care Provider Geri vailable Cecil Ferraro MD Primary Care Provider + Cecil Ferraro MD Unavailable [phone] No Personal, Physician Unavailable Unavailab le Cecil Ferraro MD Unavailable [phone] Alejandrina Lake MD Unavailable Unavailable Alejandrina Lake MD Unavailable Unavailable Rossana Parekh MD Primary Care Provider Rossana Barron MD Primary Care Provider [phone] Encounter Details Date Type Department Care Team (Late st [facility] Info) Description 11/07/[address] [id number] Social History Tobacco Use Types Packs/Day Years [...] documented as of this encounter Care Teams Electronic Equipment Maint Tech Relationship Specialty Start Date End Date Cecil Ferraro MD [address] [place], [place] [address] PCP - General 03/23/10 12/20/18 No Personal, Physician PCP - General 05/20/09 03/22/10 Cecil Ferraro MD [address] [id number] PCP - General 04/24/09 05/19/09 Rosasna Parekh MD PCP - General Family Medicine 12/21/18 11/25/19 Rossana Barron MD [address] [place] [address] PCP - General Family Medicine 11/26/19 Cecil Ferraro MD [address] [place] [address] 08/07/17 12/23/18 No Personal, Physician 08/07/17 12/23/18 Cecil Ferraro MD [address] [place] [address] 08/07/17 12/23/18 Alejandrina Lake MD 08/07/17 12/23/18 Alejandrina Lake MD 08/07/17 12/23/18 documented as of this encounter Additional Source Comments PLEASE NOTE: Replies to this message will not be received.[facility] and [facility]
--- OUTSIDE RECORDS SUMMARY | 2024-05-08 08:25 | XMS_ITS | Encounter Summary ---
Author Organization [facility] [employer] [facility] Address [address] [place] [address] Care Team Providers Care Traffic Chief Name Role Phone Cecil Ferraro MD Primary Care Provider [phone]- [phone] No Personal, Physician Primary Care Provider Geri vailable Cecil Ferraro MD Primary Care Provider + Cecil Ferraro MD Unavailable [phone] No Personal, Physician Unavailable Unavailab le Cceil Ferraro MD Unavailable [phone] Alejandrina Lake MD Unavailable Unavailable Alejandrina Lake MD Unavailable Unavailable Rossana Parekh MD Primary Care Provider [phone] Rossana Barron MD Primary Care Provider [phone] Encounter Details Date Type Department Care Team (Late st [facility] Info) Description 08/07/[address] [id number] Social History Tobacco Use Types Packs/Day Years [...] Comments DERMATOPATHOLOGY - S 08/07/2001 1:[address]SULTANT documented in this encounter Results * DERMATOPATHOLOGY - S (08/07/2001 1:[address] CONSULTANT) Narrative Procedure Note ROXI, SCAN - 08/07/2001 1:21 PM CST Scan Roxi PROCEDURE NOTE documented in this encounter Visit Diagnoses Not on filedocumented in this encounter Additional Health Concerns Infection Onset Date Last Indicated Resolved Time COVID-19 Rule Out 12/12/2019 12/12/2019 12/14/2019 12:07 PM CDT COVID-19 Rule Out 02/26/2020 02/26/2020 02/27/2020 9:11 PM CDT documented as of this encounter Care Teams Traffic Chief Relationship Specialty Start Date End Date Cecil Ferraro MD [address] [place], [place] [address] PCP - General 03/23/10 12/20/18 No Personal, Physician PCP - General 05/20/09 03/22/10 Cecil Ferraro MD [facility] [address] [place], [place] [phone] PCP - General 04/24/09 05/19/09 Rossana Parekh MD PCP - General Family Medicine 12/21/18 11/25/19 Rossana Barron MD [address] [place] [address] PCP - General Family Medicine 11/26/19 Cecil Ferraro MD [address] [place] [address] 08/07/17 12/23/18 No Personal, Physician 08/07/17 12/23/18 Cecil Ferraro MD [facility] [address] [place] [address] 08/07/17 12/23/18 Alejandrina Lake MD 08/07/17 12/23/18 Alejandrina Lake MD 08/07/17 12/23/18 documented as of this encounter Additional Source Comments PLEASE NOTE: Replies to this message will not be received.[facility]
== END 2024-05-08 08:22 | disposition home or self-care (01) ==
PROVIDERS: PCP Internal Medicine; Visit Provider Internal Medicine
DX: R10.9 Unspecified abdominal pain (principal); R07.9 Chest pain, unspecified
CPT/HCPCS: 80053; 85379; 87086

== ENCOUNTER 2024-05-14 10:36 | Outpatient (CLI) | payer OTHER, SELFPAY ==
--- OUTSIDE RECORDS SUMMARY | 2024-05-14 10:39 | XMS_ITS | Referral Summary ---
Author Organization [facility] Address [address] [place] [address] Care Team Providers Care Handle Sewer Name Role Phone Unavailable Primary Care Provider Unavailabl e Source Comments Patient records contain information from all sites at [facility]. For routine questions regarding patient records, call [phone] during business hours, M-F 8:00 AM - 5:00 PM Central Time. Record requests for emergency care only can be directed to [phone] at any time.[facility] Encounters Date Type Department Care Team Description 03/21/2024 8:00 AM CDT Telemedicine Division of Colon and Rectal Surgery in [place], [place] [address] [place] [address] Ruslan Story P.A.-C. Prolapse Rectal (Primary Dx); Hemorrhoids from Last 3 Months Social History Tobacco Use Types Packs/Day Years Used Date Smoking Tobacco: Never Assessed [facility] Utilities Answer Date Recorded In the past 12 months has [employer], gas, oil, or water [employer] threatened to shut off services in your [...] your living situation today? I have a [facility] place to live 03/20/2024 Comments Unknown Sex and Gender Information Value Date Recorded Sex Assigned at Female 03/20/2024 9:14 PM CDT Legal Sex Female 11:39 AM CDT Gender Identity Female 03/20/2024 9:14 PM CDT Sexual Orientation Straight 03/20/2024 9: 14 PM CDT Plan of Treatment Not on file Insurance [employer]
--- OUTSIDE RECORDS SUMMARY | 2024-05-14 10:39 | XMS_ITS | Encounter Summary ---
Author Organization [facility] Address [address] [place] [address] Care Team Providers Care Bung Driver Name Role Phone Unavailable Primary Care Provider Unavailabl e Reason for Visit * Appointment Request (Routine) - Closed Specialty Diagnoses / Procedures Referred By Zainab wilkinson Referred To Contact Colon and Rectal Surgery Diagnoses Prolapse Rectal Mishel Hernandez M.D. [address] [place] [address] Phone: tel: fax: Referral ID Status Reason Start Date Expiration Date Visits Re quested Visits Authorized [id number] Closed 03/06/2024 03/06/2025 1 1 Encounter Details Date Type Department Care Team ([facility] st Contact Info) Description 03/21/2024 8:00 AM CDT Telemedicine Division of Colon and Rectal Surgery in [place], [place] [address] [place] [address] Ruslan Story P.A.-C. [address] [place] [phone] Prolapse Rectal (Primary Dx); Hemorrhoids Social History Tobacco Use Types Packs/Day Years Used Date Smoking Tobacco: Never Assessed [facility] Utilities Answer Date Recorded In the past 12 months has [employer], gas, oil, or water [employer] threatened to shut off services in your [...] your living situation today? I have a [facility] place to live 03/20/2024 Comments Unknown [...] audio/video technology by Ruslan Story PA-C in [facility] to the patient in patient home. REASON FOR CONSULT Rebekah Leroy is a 63 y.o. female who presents for evaluation of rectal prolapse [address] [facility] [address] HISTORY OF PRESENT ILLNESS Rebekah Leroy presents [...] a hemorrhoid. She was recently seen in [facility] and two external hemorrhoids were noted. She [...]
--- OUTSIDE RECORDS SUMMARY | 2024-05-14 10:39 | XMS_ITS | Clinical Summary ---
Author Organization [facility] Address [address] [place] [address] Care Team Providers Care Wood Crew Supervisor Name Role Phone Unavailable Primary Care Provider Unavailabl e Source Comments Patient records contain information from all sites at [facility]. For routine questions regarding patient records, call [phone] during business hours, M-F 8:00 AM - 5:00 PM Central Time. Record requests for emergency care only can be directed to [phone] at any time.[facility] Encounters Date Type Department Care Team Description 03/21/2024 8:00 AM CDT Telemedicine Division of Colon and Rectal Surgery in [place], [place] [address] [place] [address] Ruslan Story P.A.-C. Prolapse Rectal (Primary Dx); Hemorrhoids from Last 3 Months Social History Tobacco Use Types Packs/Day Years Used Date Smoking Tobacco: Never Assessed [facility] Utilities Answer Date Recorded In the past 12 months has [employer], gas, oil, or water [employer] threatened to shut off services in your [...] your living situation today? I have a [facility] place to live 03/20/2024 Comments [...] patient's age to complete this topic Insurance [employer]
--- OUTSIDE RECORDS SUMMARY | 2024-05-14 10:39 | XMS_ITS ---
Author Organization [facility] Address [address] [place] [address] Care Team Providers Care Glassware Maker Demonstrator Name Role Phone Unavailable Unavailable Unavailable Surgery Details Not on file Complications Check Surgery Details section. Procedure Estimated Blood Loss Check Surgery Details section. Procedure Findings Check Surgery Details section. Procedure Specimens Taken Check Surgery Details section.
--- OUTSIDE RECORDS SUMMARY | 2024-05-14 10:40 | XMS_ITS | Encounter Summary ---
Author Organization [facility] Address [address] [place] [address] Care Team Providers Care Assembly Room Supervisor Name Role Phone Cecil Ferraro MD Primary Care Provider [phone] No Personal, Physician Primary Care Provider Geri vailable Cecil Ferraro MD Primary Care Provider + Cecil Ferraro MD Unavailable [phone] No Personal, Physician Unavailable Unavailab le Cecil Ferraro MD Unavailable [phone] Alejandrina Lake MD Unavailable Unavailable Alejandrina Lake MD Unavailable Unavailable Rossana Parekh MD Primary Care Provider Rossana Barron MD Primary Care Provider [phone] Encounter Details Date Type Department Care Team (Late st [facility] Info) Description 03/05/[address] [id number] Social History Tobacco Use Types Packs/Day Years [...] Date End Date Cecil Ferraro MD [address] [place], [place] [address] PCP - General 03/23/10 12/20/18 No Personal, Physician PCP - General 05/20/09 03/22/10 Cecil Ferraro MD [facility] [address] [place], [place] [phone] PCP - General 04/24/09 05/19/09 Rossana Parekh MD PCP - General Family Medicine 12/21/18 11/25/19 Rossana Barron MD [address] [place] [address] PCP - General Family Medicine 11/26/19 Cecil Ferraro MD [address] [place] [address] 08/07/17 12/23/18 No Personal, Physician 08/07/17 12/23/18 Cecil Ferraro MD [place] [address] [address] [place] [address] 08/07/17 12/23/18 Alejandrina Lake MD 08/07/17 12/23/18 Alejandrina Lake MD 08/07/17 12/23/18 documented as of this encounter Additional Source Comments PLEASE NOTE: Replies to this message will not be received.[facility]
--- OUTSIDE RECORDS SUMMARY | 2024-05-14 10:40 | XMS_ITS | Encounter Summary ---
Author Organization [facility] [employer] [facility] Address [address] [place] [address] Care Team Providers Care Fructose Loader Name Role Phone Cecil Ferraro MD Primary Care Provider [phone]- [phone] No Personal, Physician Primary Care Provider Geri vailable Cecil Ferraro MD Primary Care Provider + Cecil Ferraro MD Unavailable [phone] No Personal, Physician Unavailable Unavailab le Cecil Ferraro MD Unavailable [phone] Alejandrina Lake MD Unavailable Unavailable Alejandrina Lake MD Unavailable Unavailable Rossana Parekh MD Primary Care Provider Rossana Barron MD Primary Care Provider [phone] Encounter Details Date Type Department Care Team (Late st Contact Info) Description 01/16/2007 HIM Clinical Services Professional Generic Clinical Services Professional [address] [place] [address] Social History Tobacco Use Types Packs/Day Years [...] documented as of this encounter Care Teams Fructose Loader Relationship Specialty Start Date End Date Cecil Ferraro MD [address] [place] [address] PCP - General 03/23/10 12/20/18 No Personal, Physician PCP - General 05/20/09 03/22/10 Cecil Ferraro MD [facility] [address] [place], [place] [phone] PCP - General 04/24/09 05/19/09 Rossana Praekh MD PCP - General Family Medicine 12/21/18 11/25/19 Rossana Barron MD [address] [place] [address] PCP - General Family Medicine 11/26/19 Cecil Ferraro MD [address] [place], [place] [address] 08/07/17 12/23/18 No Personal, Physician 08/07/17 12/23/18 Cecil Ferraro MD [address] [address] 08/07/17 12/23/18 Alejandrina Lake MD 08/07/17 12/23/18 Alejandrina Lake MD 08/07/17 12/23/18 documented as of this encounter Additional Source Comments PLEASE NOTE: Replies to this message will not be received.[facility] and [facility]
--- OUTSIDE RECORDS SUMMARY | 2024-05-14 10:40 | XMS_ITS | Encounter Summary ---
Author Organization [facility] [employer] [facility] Address [address] [place] [address] Care Team Providers Care Petroleum Products Sales Representative Name Role Phone Cecil Ferraro MD Primary Care Provider [phone]- [phone] No Personal, Physician Primary Care Provider Geri vailable Cecil Ferraro MD Primary Care Provider + Cecil Ferraro MD Unavailable [phone] No Personal, Physician Unavailable Unavailab le Cecil Ferraro MD Unavailable [phone] Alejandrina Lake MD Unavailable Unavailable Alejandrina Lake MD Unavailable Unavailable Rossana Parekh MD Primary Care Provider [phone] Rossana Barron MD Primary Care Provider [phone] Encounter Details Date Type Department Care Team (Late st Contact Info) Description 03/29/2007 HIM Accounting Bookkeeper Generic Accounting Bookkeeper [address] [place] [address] Social History Tobacco Use Types Packs/Day Years [...] documented as of this encounter Care Teams Petroleum Products Sales Representative Relationship Specialty Start Date End Date Cecil Ferraro MD [address] [place] [address] PCP - General 03/23/10 12/20/18 No Personal, Physician PCP - General 05/20/09 03/22/10 Cecil Ferraro MD [facility] [address] [place], [place] [id number] PCP - General 04/24/09 05/19/09 Rossana Parekh MD PCP - General Family Medicine 12/21/18 11/25/19 Rossana Barron MD [address] [place] [address] PCP - General Family Medicine 11/26/19 Cecil Ferraro MD [address] [place], [place] [address] 08/07/17 12/23/18 No Personal, Physician 08/07/17 12/23/18 Cecil Ferraro MD [address] [address] 08/07/17 12/23/18 Alejandrina Lake MD 08/07/17 12/23/18 Alejandrina Lake MD 08/07/17 12/23/18 documented as of this encounter Additional Source Comments PLEASE NOTE: Replies to this message will not be received.[facility] and [facility]
--- OUTSIDE RECORDS SUMMARY | 2024-05-14 10:40 | XMS_ITS | Clinical Summary ---
Author Organization [employer] [facility] Address [place], [place] [address] Care Team Providers Care Diagnostics Tech Name Role Phone Julieth Callejas MD Primary Care Provider [phone] Allergies Active Allergy Reactions Criticality Noted Date Comments Metformin Rash High 10/05/2021 Tetracycline Rash,Photosensitivity 07/11/2010 Medications Medication Sig Dispensed Refills Start Date End Date Status sensor for continuous blood glucose monitor (CGM)Indications :Type 2 diabetes mellitus without complication, without long-term current use of insulin (HC) To be used to read blood sugars, follow insurance sales supervisor directions. 9 Each 3 03/14/2023 Active [id number]- judx-ssew-ifeo 350-250 mg/7.8 gram powd Mix in liquid [...] BE USED TO READ BLOOD SUGARS, FOLLOW PHYSICAL THERAPY ASST DIRECTIONS. 6 Each 3 04/17/2024 Active sensor [...] be used to read blood sugars, follow insurance sales supervisor directions. 9 Each 3 03/14/2023 4 Discontinued [...] Type Department Care Team Description 04/17/[address] [phone] Julieth Callejas MD Medication Management (FreeStyle Jamel 3 Sensor for continuous blood glucose monitor (CGM) /) 04/16/2024 Refill [facility] [address] [place] [phone] Julieth Callejas MD Refill Request (Freestyle Jamel [...] Comments Blood Pressure 124/78 07/28/2023 12:13 PM SECURITY OPERATIONS ANALYST Pulse 76 07/28/2023 12:13 PM SECURITY OPERATIONS ANALYST Temperature - - Respiratory Rate 16 02/28/2023 9:15 AM CDT Oxygen Saturation 93% 02/28/2023 9:15 AM CDT Inhaled Oxygen Concentration - - Weight 97.5 kg (215 lb) 07/28/2023 12:13 PM SECURITY OPERATIONS ANALYST with boots Height 166.4 cm (5' 5.5) [...] MEASURED LDL Add On 07/28/2023 12:00 PM SECURITY OPERATIONS ANALYST Type 2 diabetes mellitus without complication, without [...] W REFLEX MEASURED LDL (07/28/2023 12:00 PM SECURITY OPERATIONS ANALYST) CHOLESTEROL,TOTAL 231(H) 100 - 199 mg/dL 07/29/2023 6:20 AM [facility] Comment: Cholesterol, Total Reference Ranges Desirable <200 mg/dL Borderline 200-239 mg/dL High >=240 mg/dL TRIGLYCERIDES 200(H) <150 mg/dL 07/29/2023 6:20 AM [facility] HDL CHOLESTEROL 51 >40 mg/dL 6:20 AM [facility] NON-HDL CHOLESTEROL 180(H) <145 mg/dl 07/29/2023 6:20 AM [facility] CHOL/HDL RATIO 4.53(H) <4.50 07/29/2023 6:20 AM [facility] LDL CHOLESTEROL 140(H) <=130 mg/dL 07/29/2023 6:20 AM [facility] VLDL CHOLESTEROL 40(H) <=30 mg/dL 07/29/2023 6:20 AM [facility] PROVIDER ORDERED STATUS RANDOM 07/29/2023 6:20 AM [facility] Blood BLOOD SPECIMEN / Unknown Venipuncture / Unknown 07/28/2023 12:00 PM SECURITY OPERATIONS ANALYST 07/28/2023 12:00 PM [facility] Julieth Callejas MD CHEMISTRY [facility] [address] [place] [address], * XR MAMMO BILAT SCREENING (03/03/2023 10:15 [...] health care provider. XR MAMMO BILAT SCREENING [[id number]] CLINICAL HISTORY: ??This is an asymptomatic 62 y.o. patient. INDICATION FOR EXAM: Mammogram Screening. TECHNIQUE: CC & MLO views were obtained. ??This study was evaluated with the assistance of Computer-Aided Detection. COMPARISON FILM: Yes 12/27/21 [place] ?? FINDINGS: ??The breasts are almost entirely [...] adequate candidate for conscious sedation. The endoscope [id number] was passed through the anus andadvanced to [...] 7:51 AM Procedure Code(s): --- Professional --- 95123, Colonoscopy, flexible; diagnostic, including collection of specimen(s) bybrushing or washing, when performed (separateprocedure) Diagnosis Code(s): --- Professional --- Z86.010, Personal history of colonicpolyps K57.30, Diverticulosis of large intestine without perforation or abscess withoutbleeding CPT copyright 2021 [employer]. All rights reserved. The codes documented in this report are preliminary and upon associate professor of art history reviewmay be revised to meet current compliance requirements. Scope In: 8:42:34 AM Scope Withdrawal Time 0 hours 7 minutes 51 seconds Scope Out: 8:55:20 AM Casa Hatch MD PROCEDURE ORD * HPV HIGH RISK (10/05/2021 8:50 AM CDT) TYPE 16 Negative Negative 10/07/2021 10:54 AM CDT [facility] TYPE 18 Negative Negative 10/07/2021 10:54 AM CDT [facility] OTHER HIGH RISK TYPES Negative Negative 10/07/2021 10:54 AM CDT [facility] Other (Cervical) Non-Blood / Unknown 10/05/2021 8:50 AM CDT 10/05/2021 3:32 PM CDT Narrative [facility] - 10/07/2021 10:54 AM CDT HPV types 16, 18, 31, 33, 35, 39, 45, 51, 52, 56, 58, 59, 66 and 68 DNA were undetectable or below the pre-set threshold. Methodology: Qlusters Archie 4800 HPV Test Daija WYATT MICROBIOLOGY [facility] [address] [place] [address], [place] from Last 3 Months or Most Recently Relevant to Health Maintenance Care Teams Diagnostics Tech Relationship Specialty Start Date End Date Julieth Callejas MD [address] [place] [address] PCP - General Internal Medicine 07/11/23
--- OUTSIDE RECORDS SUMMARY | 2024-05-14 10:40 | XMS_ITS | Referral Summary ---
Author Organization [employer] [facility] Address [address] [place] [address] Care Team Providers Care Phlebotomy Supervisor Name Role Phone Rossana Barron MD Primary Care Provider [phone] Allergies Active Allergy Reactions Criticality Noted Date [...] 208(H) <200 mg/dL 10/27/2020 5:44 PM CDT [facility] Triglycerides 279(H) 30 - 150 mg/dL 10/27/2020 5:44 PM CDT [facility] Cholesterol, LDL (Calculated) 111 0 - 159 mg/dL 10/27/2020 5:44 PM CDT [facility] Cholesterol, HDL 41 >40 mg/dL 10/28/19 21 5:44 PM CDT [facility] Cholesterol, vLDL 56 mg/dL 021 5:44 PM CDT [facility] Blood VENOUS BLOOD / Unknown Venipuncture / Unknown 10/27/2020 2:59 PM CDT 10/27/2020 2:59 PM CDT Rossana Paerkh MD LAB CHEMISTRY ORDERA BLES [facility] [address] [place], [place] [phone] * PAP TEST (12/21/2018 9:00 AM CDT) Specimen Adequacy Satisfactory for evaluation: Endocervical component present. Satisfactory for evaluation: Partially obscured by inflammation. 12/26/2018 2:25 PM CDT [facility] Interpretation Negative for intraepithelial lesion or malignancy. 12/26/2018 2:25 PM CDT [facility] Reflex? Reflex if ASCUS only 12/26/2018 2:25 PM CDT [facility] Disclaimer/Infor mational Comment The Pap test [...] additional confirmatory testing. 12/26/2018 2:25 PM CDT [facility] Other PART OF UTERINE CERVIX / Unknown 12/21/2018 9:00 AM CDT 12/25/2018 5:12 PM CDT Rossana Parekh MD LAB CYTOLOGY ORDERAB LES [facility] [address] [place] [address], * COLONOSCOPY (11/13/2017 8:40 AM CDT) 11/13/2017 8:40 AM CDT Narrative [facility] - 11/13/2017 9:39 AM CDT [facility] Patient Name: Rebekah Leroy Procedure [...] and oxygen saturations ?were monitored continuously. The [id number] was introduced ?through the anus and advanced [...] 8:40 AM Cecil Ferraro MD GI PROCEDURES [employer] END[facility] * HPV HIGH RISK (02/03/2011 5:00 PM CDT) HPV TYPE 16 NEGATIVE NEG [facility] HPV TYPE 18 NEGATIVE NEG [facility] HPV TYPE 31 NEGATIVE NEG [facility] DNP [employer] SERVICES [facility] HPV TYPE 33 NEGATIVE NEG [facility] HPV TYPE 35 NEGATIVE NEG [facility] HPV TYPE 39 NEGATIVE NEG [facility] HPV TYPE 45 NEGATIVE NEG [facility] HPV TYPE 51 NEGATIVE NEG [facility] HPV TYPE 52 NEGATIVE NEG [facility] HPV TYPE 56 NEGATIVE [facility] HPV TYPE 58 NEGATIVE NEG [facility] HPV TYPE 59 NEGATIVE [facility] HPV TYPE 66 NEGATIVE [facility] HPV TYPE 68 NEGATIVE NEG [facility] Comment: Methodology: The HPV-HR QUAD test is designed to detect and identify high risk HPV types 16, 18, 31, 33, 35, 39, 45, 51, 52, 56, 58, 59, 66, and 68. Genomic DNA was extracted from the submitted SurePath sample using the [employer] HPV sample processing kit. The HPV-HR assay includes five major processes: 1) Multiplex PCR amplification of purified DNA 2) Fluorescent label incorporation using analyte specific primer extension (ASPE) 3) Hybridization of the labeled ASPE ??to a microarray followed by washing 4) Scanning of the microarray and 5) Signal detection and analysis. The analytical and performance characteristics of this test were validated by [facility] pursuant to Clinical Laboratory Improvement Amendments [...] Alejandrina Lake MD LAB SEROLOGY ORDERAB LES [facility] [address] [place] [address] [phone] [id number] * HEPATITIS C ANTIBODY (11/29/2001 12:09 PM [...] TO OR INFECTION WITH HEPATITIS C VIRUS. [facility] 11/29/2001 12:0 9 PM CDT Marnie Zazueta MD LAB SEROLOGY ORDERAB LES [facility] [address] [place] [address] from Last 3 Months or Most Recently Relevant to Health Maintenance Care Teams Phlebotomy Supervisor Relationship Specialty Start Date End Date Rossana Barron MD [address] [place] [address] PCP - General Family Medicine 11/26/19 Additional Source Comments PLEASE NOTE: Replies to this message will not be received.[facility] and [facility]
--- OUTSIDE RECORDS SUMMARY | 2024-05-14 10:40 | XMS_ITS | Encounter Summary ---
Author Organization [facility] [employer] [facility] [employer] Address [address] [place] [address] Care Team Providers Care Drilling Field Specialist Name Role Phone Cecil Ferraro MD Primary Care Provider [phone] No Personal, Physician Primary Care Provider Geri vailable Cecil Ferraro MD Primary Care Provider + Cecil Ferraro MD Unavailable [phone] No Personal, Physician Unavailable Unavailab le Cecil Ferraro MD Unavailable [phone] Alejandrina Lake MD Unavailable Unavailable Alejandrina Lake MD Unavailable Unavailable Rossana Parekh MD Primary Care Provider Rossana Barron MD Primary Care Provider [phone] Encounter Details Date Type Department Care Team (Late [facility] Info) Description 05/07/[address] [id number] Social History Tobacco Use Types Packs/Day Years [...] Comments DERMATOPATHOLOGY - S 05/07/2002 1:21 PM [employer] PET documented in this encounter Results * DERMATOPATHOLOGY - S (05/07/2002 1:21 PM PRODUCT PR[employer] RETAIL PET) Narrative Procedure Note ROXI, SCAN - 05/07/2002 1:21 PM CST Scan Roxi PROCEDURE NOTE documented in this encounter Visit Diagnoses Not on filedocumented in this encounter Additional Health Concerns Infection Onset Date Last Indicated Resolved Time COVID-19 Rule Out 12/12/2019 12/12/2019 12/14/2019 12:07 PM CDT COVID-19 Rule Out 02/26/2020 02/26/2020 02/27/2020 9:11 PM CDT documented as of this encounter Care Teams Drilling Field Specialist Relationship Specialty Start Date End Date Cecil Ferraro MD [address] [place], [place] [address] PCP - General 03/23/10 12/20/18 No Personal, Physician PCP - General 05/20/09 03/22/10 Cecil Ferraro MD [facility] [address] [place], [place] [phone] PCP - General 04/24/09 05/19/09 Rossana Parekh MD PCP - General Family Medicine 12/21/18 11/25/19 Rossana Barron MD [address] [place] [address] PCP - General Family Medicine 11/26/19 Cecil Ferraro MD [address] [place] [address] 08/07/17 12/23/18 No Personal, Physician 08/07/17 12/23/18 Cecil Ferraro MD [facility] [address] [place] [address] 08/07/17 12/23/18 Alejandrina Lake MD 08/07/17 12/23/18 Alejandrina Lake MD 08/07/17 12/23/18 documented as of this encounter Additional Source Comments PLEASE NOTE: Replies to this message will not be received.[facility] and [facility]
--- OUTSIDE RECORDS SUMMARY | 2024-05-14 10:40 | XMS_ITS | Encounter Summary ---
Author Organization [facility] [employer] [facility] Address [address] [place] [address] Care Team Providers Care Bilingual Branch Manager Name Role Phone Cecil Ferraro MD Primary Care Provider [phone] No Personal, Physician Primary Care Provider Geri vailable Cecil Ferraro MD Primary Care Provider + Cecil Ferraro MD Unavailable [phone] No Personal, Physician Unavailable Unavailab le Cecil Ferraro MD Unavailable [phone] Alejandrina Lake MD Unavailable Unavailable Alejandrina Lake MD Unavailable Unavailable Rossana Parekh MD Primary Care Provider [phone] Rossana Barron MD Primary Care Provider [phone] Encounter Details Date Type Department Care Team (Late st Contact Info) Description 10/31/[address] [facility] Dermatology [address] [place] [address] Henry Sandra MD Social History [...] Rebekah Leroy : 1960 E: Sid Sandra MD/[facility] DERMATOLOGY OFFICE VISIT CHART: [id number] Date of Service: 11/07/2006 Doc #: [id number] P Attending Physician: Alejandrina Lake MD SUBJECTIVE: [...] histologic evaluation to [facility] in [place]. Dressing was applied. Wound care instructions were [...] documented as of this encounter Care Teams Bilingual Branch Manager Relationship Specialty Start Date End Date Cecil Ferraro MD [address] [place] [address] PCP - General 03/23/10 12/20/18 No Personal, Physician PCP - General 05/20/09 03/22/10 [facility] [address] [place] [address] PCP - General 04/24/09 05/19/09 Rossana Parekh MD PCP - General Family Medicine 12/21/18 11/25/19 Rossana Barron MD [address] [place] [address] PCP - General Family Medicine 11/26/19 Cecil Ferraro MD [address] [place] [address] 08/07/17 12/23/18 No Personal, Physician 08/07/17 12/23/18 Cecil Ferraro MD [facility] [address] [place] [address] 08/07/17 12/23/18 Alejandrina Lake MD 08/07/17 12/23/18 Alejandrina Lake MD 08/07/17 12/23/18 documented as of this encounter Additional Source Comments PLEASE NOTE: Replies to this message will not be received.[facility] and [facility]
--- OUTSIDE RECORDS SUMMARY | 2024-05-14 10:40 | XMS_ITS | Encounter Summary ---
Author Organization [facility] [employer] [facility] Address [address] [place] [address] Care Team Providers Care Security Compliance Engineer Name Role Phone Cecil Ferraro MD Primary Care Provider [phone] No Personal, Physician Primary Care Provider Geri vailable Cecil Ferraro MD Primary Care Provider + Cecil Ferraro MD Unavailable [phone] No Personal, Physician Unavailable Unavailab le Cecil Ferraro MD Unavailable [phone] Alejandrina Lake MD Unavailable Unavailable Alejandrina Lake MD Unavailable Unavailable Rossana Parekh MD Primary Care Provider Rossana Barron MD Primary Care Provider [phone] Encounter Details Date Type Department Care Team (Late st [facility] Info) Description 03/28/[address] [id number] Social History Tobacco Use Types Packs/Day Years [...] documented as of this encounter Care Teams Security Compliance Engineer Relationship Specialty Start Date End Date Cceil Ferraro MD [address] [place], [place] [address] PCP - General 03/23/10 12/20/18 No Personal, Physician PCP - General 05/20/09 03/22/10 Cecil Ferraro MD [facility] [address] [place], [place] [phone] PCP - General 04/24/09 05/19/09 Rossana Parekh MD PCP - General Family Medicine 12/21/18 11/25/19 Rossana Barron MD [address] [place] [phone] PCP - General Family Medicine 11/26/19 Cecil Ferraro MD [address] [place] [address] 08/07/17 12/23/18 No Personal, Physician 08/07/17 12/23/18 Cecil Ferraro MD [place] [address] [place] [address] 08/07/17 12/23/18 Alejandrina Lake MD 08/07/17 12/23/18 Alejandrina Lake MD 08/07/17 12/23/18 documented as of this encounter Additional Source Comments PLEASE NOTE: Replies to this message will not be received.[facility] and [facility]
--- OUTSIDE RECORDS SUMMARY | 2024-05-14 10:40 | XMS_ITS | Encounter Summary ---
Author Organization [facility] [employer] [facility] Address [address] [place] [address] Care Team Providers Care Manager Labor Relations Name Role Phone Cecil Ferraro MD Primary Care Provider +- [phone] No Personal, Physician Primary Care Provider Geri vailable Cecil Ferraro MD Primary Care Provider + Cecil Ferraro MD Unavailable [phone] No Personal, Physician Unavailable Unavailab le Cecil Ferraro MD Unavailable [phone] Alejandrina Lake MD Unavailable Unavailable Alejandrina Lake MD Unavailable Unavailable Rossana Parekh MD Primary Care Provider Rossana Barron MD Primary Care Provider [phone] Encounter Details Date Type Department Care Team (Late st Contact Info) Description 01/06/2006 Clinic Encounter [facility] Obstetrics/Gynecology [address] [place], [place] [phone] Alejandrina Lake MD Social History Tobacco Use Types Packs/Day Years Used Date Smoking Tobacco: Never Assessed Sex and Gender Information Value Date Recorded Sex Assigned at Not on file Gender Identity Not on file Sexual Orientation Not on file documented as of this encounter Progress Notes * Alejandrina Lake MD - 01/06/2006 12:00 AM [facility] Rebekah Leroy [id number] [...] home. Does breast self exam. Traveled to [place] in July. No concerns about domestic violence. [...] maintenance. Alejandrina Lake MD/cdg P A Doc#: [id number] cc: documented in this encounter Plan of Treatment Not on file documented as of this encounter Procedures Procedure Name Priority Date/Time Associated Diagnosis Comments UNKNOWN Routine 01/06/2006 3:25 PM CDT documented in this encounter Results * UNKNOWN (01/06/2006 3:25 PM CDT) PT INS MEDICARE,CAID,LALITO MPUS(Y NO [facility] ICD-9 CODE V72.3 [facility] HISTORY/SYMPTOMS (FREE TE PHYSICAL [facility] SCR PAP [id number] (Y/N) YES [facility] DIAG PAP [id number] (Y/N) NO [facility] HIGH RISK (Y/N) [...] CDT Alejandrina Lake MD [facility] Organization Address City/State/ZIP Co de Phone Number [facility] documented in this encounter Visit Diagnoses Not on filedocumented in this encounter Additional Health Concerns Infection Onset Date Last Indicated Resolved Time COVID-19 Rule Out 12/12/2019 12/12/2019 12/14/2019 12:07 PM CDT COVID-19 Rule Out 02/26/2020 02/26/2020 02/27/2020 9:11 PM CDT documented as of this encounter Care Teams Manager Labor Relations Relationship Specialty Start Date End Date Cecil Ferraro MD [address] [place] [address] PCP - General 03/23/10 12/20/18 No Personal, Physician PCP - General 05/20/09 03/22/10 [place] [address] PCP - General 04/24/09 05/19/09 Rossana Parekh MD PCP - General Family Medicine 12/21/18 11/25/19 Rossana Barron MD [address] [place] [phone] PCP - General Family Medicine 11/26/19 Cecil Ferraro MD [address] [place] [address] 08/07/17 12/23/18 No Personal, Physician 08/07/17 12/23/18 Cecil Ferraro MD [facility] [address] [place] [address] 08/07/17 12/23/18 Alejandrina Lake MD 08/07/17 12/23/18 Alejandrina Lake MD 08/07/17 12/23/18 documented as of this encounter Additional Source Comments PLEASE NOTE: Replies to this message will not be received.[facility] and [facility]
--- OUTSIDE RECORDS SUMMARY | 2024-05-14 10:40 | XMS_ITS | Encounter Summary ---
Author Organization [facility] [employer] Address [address] [place] [address] Care Team Providers Care Veneer Supervisor Name Role Phone Cecil Ferraro MD Primary Care Provider +- [phone] No Personal, Physician Primary Care Provider Geri vailable Cecil Ferraro MD Primary Care Provider + Cecil Ferraro MD Unavailable [phone] No Personal, Physician Unavailable Unavailab le Cecil Ferraro MD Unavailable [phone] Alejandrina Lake MD Unavailable Unavailable Alejandrina Lake MD Unavailable Unavailable Rossana Parekh MD Primary Care Provider Rossana Barron MD Primary Care Provider [phone] Encounter Details Date Type Department Care Team (Late st Contact Info) Description 03/22/2007 Clinic Encounter [facility] Obstetrics/Gynecology [address] [place] [address] Alejandrina Lake MD Social History Tobacco Use Types Packs/Day Years Used Date Smoking Tobacco: Never Assessed Sex and Gender Information Value Date Recorded Sex Assigned at Not on file Gender Identity Not on file Sexual Orientation Not on file documented as of this encounter Progress Notes * Alejandrina Lake MD - 03/29/2007 12:00 AM CDT [facility] Rebekah Leroy [id number] 03/29/2007 [...] normal. Alejandrina Lake MD/brandieg P A Doc#: [id number] cc: documented in this encounter Plan of [...] LAB CHEMISTRY ORDERA BLES Performing Organization Address [facility] Co de Phone Number [facility] * [...] documented as of this encounter Care Teams Veneer Supervisor Relationship Specialty Start Date End Date Cecil Ferraro MD [address] [place] [address] PCP - General 03/23/10 12/20/18 No Personal, Physician PCP - General 05/20/09 03/22/10 Cecil Ferraro MD [facility] [address] [place] [address] PCP - General 04/24/09 05/19/09 Rossana Parekh MD PCP - General Family Medicine 12/21/18 11/25/19 Rossana Barron MD [address] [place] [phone] PCP - General Family Medicine 11/26/19 Cecil Ferraro MD [address] [place] [address] 08/07/17 12/23/18 No Personal, Physician 08/07/17 12/23/18 Cecil Ferraro MD [address] [address] 08/07/17 12/23/18 Alejandrina Lake MD 08/07/17 12/23/18 Alejandrina Lake MD 08/07/17 12/23/18 documented as of this encounter Additional Source Comments PLEASE NOTE: Replies to this message will not be received.[facility] and [facility]
--- OUTSIDE RECORDS SUMMARY | 2024-05-14 10:40 | XMS_ITS | Encounter Summary ---
Author Organization [facility] [email or web address] [facility] Address [address] [place] [address] Care Team Providers Care Hardboard Grinder Name Role Phone Cecil Ferraro MD Primary Care Provider [phone]- [phone] No Personal, Physician Primary Care Provider Geri vailable Cecil Ferraro MD Primary Care Provider + Cecil Ferraro MD Unavailable [phone] No Personal, Physician Unavailable Unavailab le Cecil Ferraro MD Unavailable [phone] Alejandrina Lake MD Unavailable Unavailable Alejandrina Lake MD Unavailable Unavailable Rossana Parekh MD Primary Care Provider Rossana Barron MD Primary Care Provider [phone] Encounter Details Date Type Department Care Team (Late st Contact Info) Description 11/29/[address] [id number] Social History Tobacco Use Types Packs/Day Years [...] documented as of this encounter Care Teams Hardboard Grinder Relationship Specialty Start Date End Date Cecil Ferraro MD [address] [place], [place] [address] PCP - General 03/23/10 12/20/18 No Personal, Physician PCP - General 05/20/09 03/22/10 Cecil Ferraro MD [address] [place] [address] PCP - General 04/24/09 05/19/09 Rossana Parekh MD PCP - General Family Medicine 12/21/18 11/25/19 Rossana Barron MD [address] [place] [address] PCP - General Family Medicine 11/26/19 Cecil Ferraro MD [address] [place] [address] 08/07/17 12/23/18 No Personal, Physician 08/07/17 12/23/[address] [facility] [address] [place] [address] 08/07/17 12/23/18 Alejandrina Lake MD 08/07/17 12/23/18 Alejandrina Lake MD 08/07/17 12/23/18 documented as of this encounter Additional Source Comments PLEASE NOTE: Replies to this message will not be received.[facility] and [facility]
--- OUTSIDE RECORDS SUMMARY | 2024-05-14 10:40 | XMS_ITS | Encounter Summary ---
Author Organization [facility] [employer] [facility] Address [address] [place] [address] Care Team Providers Care Business Planning Manager Name Role Phone Cecil Ferraro MD Primary Care Provider [phone]- [phone] No Personal, Physician Primary Care Provider Geri vailable Cecil Ferraro MD Primary Care Provider + Cecil Ferraro MD Unavailable [phone] No Personal, Physician Unavailable Unavailab le Cecil Ferraro MD Unavailable [phone] Alejandirna Lake MD Unavailable Unavailable Alejandrina Lake MD Unavailable Unavailable Rossana Parekh MD Primary Care Provider [phone] Rossana Barron MD Primary Care Provider [phone] Encounter Details Date Type Department Care Team (Late st Contact Info) Description 01/17/2007 HIM Workers Compensation Attorney Generic Workers Compensation Attorney [address] [place] [address] Social History Tobacco Use Types Packs/Day Years [...] as of this encounter Care Teams Business Planning Manager Relationship Specialty Start Date End Date Cecil Ferraro MD [address] [place] [address] PCP - General 03/23/10 12/20/18 No Personal, Physician PCP - General 05/20/09 03/22/10 Cecil Ferraro MD [facility] [address] [place], [place] [id number] PCP - General 04/24/09 05/19/09 Rossana Parekh MD PCP - General Family Medicine 12/21/18 11/25/19 Rossana Barron MD [address] [place] [address] PCP - General Family Medicine 11/26/19 Cecil Ferraro MD [address] [place], [place] [address] 08/07/17 12/23/18 No Personal, Physician 08/07/17 12/23/18 Cecil Ferraro MD [address] [address] 08/07/17 12/23/18 Alejandrina Lake MD 08/07/17 12/23/18 Alejandrina Lake MD 08/07/17 12/23/18 documented as of this encounter Additional Source Comments PLEASE NOTE: Replies to this message will not be received.[facility] and [facility]
--- OUTSIDE RECORDS SUMMARY | 2024-05-14 10:40 | XMS_ITS | Encounter Summary ---
Author Organization [facility] [employer] [facility] Address [address] [place] [address] Care Team Providers Care Restaurant Supervisor Name Role Phone Cecil Ferraro MD Primary Care Provider [phone]- [phone] No Personal, Physician Primary Care Provider Geri vailable Cecil Ferraro MD Primary Care Provider + Cecil Ferraro MD Unavailable [phone] No Personal, Physician Unavailable Unavailab le Cecil Ferraro MD Unavailable [phone] Alejandrina Lake MD Unavailable Unavailable Alejandrina Lake MD Unavailable Unavailable Rossana Parekh MD Primary Care Provider [phone] Rossana Barron MD Primary Care Provider [phone] Encounter Details Date Type Department Care Team (Late st Contact Info) Description 12/23/2003 [facility] [address] [place], [place] [address], [place] [id number] Unknown, [place] [address] Social History Tobacco Use Types Packs/Day Years [...] documented as of this encounter Care Teams Restaurant Supervisor Relationship Specialty Start Date End Date Cecil Ferraro MD [address] [place] [address] PCP - General 03/23/10 12/20/18 No Personal, Physician PCP - General 05/20/09 03/22/10 Cecil Ferraro MD [facility] [address] [place] [address] PCP - General 04/24/09 05/19/09 Rossana Parekh MD PCP - General Family Medicine 12/21/18 11/25/19 Rossana Barron MD [facility] [address] [place] [phone] PCP - General Family Medicine 11/26/19 Cecil Ferraro MD [address] [place] [address] 08/07/17 12/23/18 No Personal, Physician 08/07/17 12/23/18 Cecil Ferraro MD [address] [address] 08/07/17 12/23/18 Alejandrina Lake MD 08/07/17 12/23/18 Alejandrina Lake MD 08/07/17 12/23/18 documented as of this encounter Additional Source Comments PLEASE NOTE: Replies to this message will not be received.[facility] and [facility]
--- OUTSIDE RECORDS SUMMARY | 2024-05-14 10:40 | XMS_ITS | Encounter Summary ---
Author Organization [facility] [employer] [facility] Address [address] [place] [address] Care Team Providers Care Leather Goods Assembler Name Role Phone Cecil Ferraro MD Primary Care Provider [phone]- [phone] No Personal, Physician Primary Care Provider Geri vailable Cecil Ferraro MD Primary Care Provider + Cecil Ferraro MD Unavailable [phone] No Personal, Physician Unavailable Unavailab le Cecil Ferraro MD Unavailable [phone] Alejandrina Lake MD Unavailable Unavailable Alejandrina Lake MD Unavailable Unavailable Rossana Parekh MD Primary Care Provider Rossana Barron MD Primary Care Provider [phone] Encounter Details Date Type Department Care Team (Late st Contact Info) Description 12/01/2006 HIM [address] Worker Generic Highway Worker [address] [place] [address] Social History Tobacco Use Types Packs/Day Years [...] documented as of this encounter Care Teams Leather Goods Assembler Relationship Specialty Start Date End Date Cecil Ferraro MD [address] [place] [address] PCP - General 03/23/10 12/20/18 No Personal, Physician PCP - General 05/20/09 03/22/10 Cecil Ferraro MD [facility] [address] [place], [place] [phone] PCP - General 04/24/09 05/19/09 Rossana Parekh MD PCP - General Family Medicine 12/21/18 11/25/19 Rossana Barron MD [address] [place] [phone] PCP - General Family Medicine 11/26/19 Cecil Ferraro MD [address] [place], [place] [address] 08/07/17 12/23/18 No Personal, Physician 08/07/17 12/23/18 Cecil Ferraro MD [address] [address] 08/07/17 12/23/18 Alejandrina Lake MD 08/07/17 12/23/18 Alejandrina Lake MD 08/07/17 12/23/18 documented as of this encounter Additional Source Comments PLEASE NOTE: Replies to this message will not be received.[facility] and [facility]
--- OUTSIDE RECORDS SUMMARY | 2024-05-14 10:40 | XMS_ITS | Encounter Summary ---
Author Organization [facility] [employer] [facility] Address [address] [place] [address] Care Team Providers Care Arabic Linguist Name Role Phone Cecil Ferraro MD Primary Care Provider [phone]- [phone] No Personal, Physician Primary Care Provider Geri vailable Cecil Ferraro MD Primary Care Provider + Cecil Ferraro MD Unavailable [phone] No Personal, Physician Unavailable Unavailab le Cecil Ferraro MD Unavailable [phone] Alejandrina Lake MD Unavailable Unavailable Alejandrina Lake MD Unavailable Unavailable Rossana Parekh MD Primary Care Provider Rossana Barron MD Primary Care Provider [phone] Encounter Details Date Type Department Care Team (Late st [facility] Info) Description 11/07/[address] [id number] Social History Tobacco Use Types Packs/Day Years [...] documented as of this encounter Care Teams Arabic Linguist Relationship Specialty Start Date End Date Cecil Ferraro MD [address] [place], [place] [address] PCP - General 03/23/10 12/20/18 No Personal, Physician PCP - General 05/20/09 03/22/10 Cecil Ferraro MD [address] [id number] PCP - General 04/24/09 05/19/09 Rossana Parekh MD PCP - General Family Medicine 12/21/18 11/25/19 Rossana Barron MD [address] [place] [address] PCP - General Family Medicine 11/26/19 Cecil Ferraro MD [address] [place] [address] 08/07/17 12/23/18 No Personal, Physician 08/07/17 12/23/18 Cecil Ferraro MD [address] [place] [address] 08/07/17 12/23/18 Alejandrina Lake MD 08/07/17 12/23/18 Alejandrina Lake MD 08/07/17 12/23/18 documented as of this encounter Additional Source Comments PLEASE NOTE: Replies to this message will not be received.[facility] and [facility]
--- OUTSIDE RECORDS SUMMARY | 2024-05-14 10:40 | XMS_ITS | Encounter Summary ---
Author Organization [facility] Address [address] [place] [address] Care Team Providers Care Lawn Mower Operator Name Role Phone Cecil Ferraro MD Primary Care Provider [phone]- [phone] No Personal, Physician Primary Care Provider Geri vailable Cecil Ferraro MD Primary Care Provider + Cecil Ferraro MD Unavailable [phone] No Personal, Physician Unavailable Unavailab le Cecil Ferraro MD Unavailable [phone] Alejandrina Lake MD Unavailable Unavailable Alejandrina Lake MD Unavailable Unavailable Rossana Parekh MD Primary Care Provider Rossana Barron MD Primary Care Provider [phone] Encounter Details Date Type Department Care Team (Late st [facility] Info) Description 08/07/[address] [id number] Social History Tobacco Use Types Packs/Day Years [...] Comments DERMATOPATHOLOGY - S 08/07/2001 1:21 PM HOSPITAL EDUCATOR documented in this encounter Results * DERMATOPATHOLOGY - S (08/07/2001 1:21 PM HOSPITAL EDUCATOR) Narrative Procedure Note ROXI, SCAN - 08/07/2001 1:21 PM CST Scan Roxi PROCEDURE NOTE documented in this encounter Visit Diagnoses Not on filedocumented in this encounter Additional Health Concerns Infection Onset Date Last Indicated Resolved Time COVID-19 Rule Out 12/12/2019 12/12/2019 12/14/2019 12:07 PM CDT COVID-19 Rule Out 02/26/2020 02/26/2020 02/27/2020 9:11 PM CDT documented as of this encounter Care Teams Lawn Mower Operator Relationship Specialty Start Date End Date Cecil Ferraro MD [address] [place], [place] [address] PCP - General 03/23/10 12/20/18 No Personal, Physician PCP - General 05/20/09 03/22/10 Cecil Ferraro MD [facility] [address] [place], [place] [phone] PCP - General 04/24/09 05/19/09 Rossana Parekh MD PCP - General Family Medicine 12/21/18 11/25/19 Rossana Barron MD [address] [place] [address] PCP - General Family Medicine 11/26/19 Cecil Ferraro MD [address] [place] [address] 08/07/17 12/23/18 No Personal, Physician 08/07/17 12/23/18 Cecil Ferraro MD [facility] [address] [place] [address] 08/07/17 12/23/18 Alejandrina Lake MD 08/07/17 12/23/18 Alejandrina Lake MD 08/07/17 12/23/18 documented as of this encounter Additional Source Comments PLEASE NOTE: Replies to this message will not be received.[facility] and [facility]
--- OUTSIDE RECORDS SUMMARY | 2024-05-14 10:40 | XMS_ITS | Encounter Summary ---
Author Organization [facility] [employer] [facility] Address [address] [place] [address] Care Team Providers Care Highway Administrative Engineer Name Role Phone Cecil Ferraro MD Primary Care Provider [phone] No Personal, Physician Primary Care Provider Geri vailable Cecil Ferraro MD Primary Care Provider + Cecil Ferraro MD Unavailable [phone] No Personal, Physician Unavailable Unavailab le Cecil Ferraro MD Unavailable [phone] Alejandrina Lake MD Unavailable Unavailable Alejandrina Lake MD Unavailable Unavailable Rossana Parekh MD Primary Care Provider Rossana Barron MD Primary Care Provider [phone] Encounter Details Date Type Department Care Team (Late st Contact Info) Description 03/06/2007 HIM Certified Green Building Engineer Generic Certified Green Building Engineer [address] [place] [address] Social History Tobacco Use Types Packs/Day Years [...] documented as of this encounter Care Teams Highway Administrative Engineer Relationship Specialty Start Date End Date Cecil Ferraro MD [address] [place] [address] PCP - General 03/23/10 12/20/18 No Personal, Physician PCP - General 05/20/09 03/22/10 Cecil Ferraro MD [facility] [address] [place], [place] [phone] PCP - General 04/24/09 05/19/09 Rossana Parekh MD PCP - General Family Medicine 12/21/18 11/25/19 Rossana Barron MD [address] [place] [address] PCP - General Family Medicine 11/26/19 Cecil Ferraro MD [address] [place], [place] [address] 08/07/17 12/23/18 No Personal, Physician 08/07/17 12/23/18 Cecil Ferraro MD [address] [address] 08/07/17 12/23/18 Alejandrina Lake MD 08/07/17 12/23/18 Alejandrina Lake MD 08/07/17 12/23/18 documented as of this encounter Additional Source Comments PLEASE NOTE: Replies to this message will not be received.[facility] and [facility]
--- OUTSIDE RECORDS SUMMARY | 2024-05-14 10:40 | XMS_ITS | Encounter Summary ---
Author Organization [facility] [facility] Address [address] [place] [address] Care Team Providers Care Monkey Keeper Name Role Phone Cecil Ferraro MD Primary Care Provider [phone]- [phone] No Personal, Physician Primary Care Provider Geri vailable Cecil Ferraro MD Primary Care Provider + Cecil Ferraro MD Unavailable [phone] No Personal, Physician Unavailable Unavailab le Cecil Ferraro MD Unavailable [phone] Alejandrina Lake MD Unavailable Unavailable Alejandrina Lake MD Unavailable Unavailable Rossana Parekh MD Primary Care Provider Rossana Barron MD Primary Care Provider +[phone] -[phone] Encounter Details Date Type Department Care Team (Late st Contact Info) Description 01/09/[address] [id number] Social History Tobacco Use Types Packs/Day Years [...] documented as of this encounter Care Teams Monkey Keeper Relationship Specialty Start Date End Date Cecil Ferraro MD [address] [place], [place] [address] PCP - General 03/23/10 12/20/18 No Personal, Physician PCP - General 05/20/09 03/22/10 Cecil Ferraro MD [facility] [address] [place] [address] PCP - General 04/24/09 05/19/09 Rossana Parekh MD PCP - General Family Medicine 12/21/18 11/25/19 Rossana Barron MD [address] [place] [address] PCP - General Family Medicine 11/26/19 Cecil Ferraro MD [address] [place] [address] 08/07/17 12/23/18 No Personal, Physician 08/07/17 12/23/18 Cecil Ferraro MD [address] [place] [address] 08/07/17 12/23/18 Alejandrina Lake MD 08/07/17 12/23/18 Alejandrina Lake MD 08/07/17 12/23/18 documented as of this encounter Additional Source Comments PLEASE NOTE: Replies to this message will not be received.[facility] and [facility]
--- OUTSIDE RECORDS SUMMARY | 2024-05-14 10:40 | XMS_ITS | Encounter Summary ---
Author Organization [facility] [employer] [facility] Address [address] [place] [address] Care Team Providers Care Package Designer Name Role Phone Cecil Ferraro MD Primary Care Provider +- [phone] No Personal, Physician Primary Care Provider Geri vailable Cecil Ferraro MD Primary Care Provider + Cecil Ferraro MD Unavailable [phone] No Personal, Physician Unavailable Unavailab le Cecil Ferraro MD Unavailable [phone] Alejandrina Lake MD Unavailable Unavailable Alejandrina Lake MD Unavailable Unavailable Rossana Parekh MD Primary Care Provider Rossana Barron MD Primary Care Provider [phone] Encounter Details Date Type Department Care Team (Late st Contact Info) Description 07/14/2006 Clinic Encounter [facility] Obstetrics/Gynecology [address] [place], [place] [phone] Marti Licea PA Social History Tobacco Use Types Packs/Day Years Used Date Smoking Tobacco: Never Assessed Sex and Gender Information Value Date Recorded Sex Assigned at Not on file Gender Identity Not on file Sexual Orientation Not on file documented as of this encounter Progress Notes * Marti Licea PA - 07/14/2006 12:00 AM [facility] Rebekah Leroy [id number] 07/14/2006 [...] the patient on her cell phone at [phone]. It is okay to leave a message and she prefers a prescription to be called into [facility]. EDMUNDO Trent-Akhil/maranda A A Doc#: [id number] cc: CE TEST ENGINEER documented in this encounter Plan of Treatment Not on file documented as of this encounter Procedures Procedure Name Priority Date/Time Associated Diagnosis Comments WET PREPARATION STAT 07/14/2006 9:25 AM DEVICE TEST ENGINEER URINALYSIS, MICROSCOPIC ONLY Routine 07/14/2006 9:20 AM DEVICE TEST ENGINEER URINALYSIS WITH REFLEX TO MICROSCOPIC Routine 07/14/2006 9:20 AM DEVICE TEST ENGINEER documented in this encounter Results * WET PREP (07/14/2006 9:25 AM DEVICE TEST ENGINEER) SPECIMEN DESCRIPTION GENITAL [facility] [...] GENITAL STRUCTURE / Unknown 07/14/2006 9:25 AM DEVICE TEST ENGINEER 07/14/2006 9:26 AM DEVICE TEST ENGINEER [facility] MICROBIOLOGY OR DERABLES [facility] * MICROSCOPIC URINE (07/14/2006 9:20 AM DEVICE TEST ENGINEER) UR WBC 1-2 0 - 5 /[facility] UR RBC 3-5 0 - 2 /[facility] EPI CELLS 1-2 <5 /[facility] CASTS NONE NONE /LPF [facility] BACTERIA NEGATIVE NEG /[facility]PF [facility] 07/14/2006 9:20 AM DEVICE TEST ENGINEER 07/14/2006 9:21 AM DEVICE TEST ENGINEER [facility] URINE ORDERABLE S Performing Organization Address [facility] Co de Phone Number [facility] * (ABNORMAL) URINALYSIS-CHEMICAL STRIP (07/14/2006 9:20 AM DEVICE TEST ENGINEER) COLOR YELLOW [facility] SURINDER [...] NEGATIVE NEG [facility] 07/14/2006 9:20 AM DEVICE TEST ENGINEER 07/14/2006 9:21 AM DEVICE TEST ENGINEER [facility] URINE ORDERABLE S GEORGIE RICHARD documented in this encounter Visit Diagnoses Not on filedocumented in this encounter Additional Health Concerns Infection Onset Date Last Indicated Resolved Time COVID-19 Rule Out 12/12/2019 12/12/2019 12/14/2019 12:07 PM CDT COVID-19 Rule Out 02/26/2020 02/26/2020 02/27/2020 9:11 PM CDT documented as of this encounter Care Teams Package Designer Relationship Specialty Start Date End Date Cecil Ferraro MD [address] [place] [address] PCP - General 03/23/10 12/20/18 No Personal, Physician PCP - General 05/20/09 03/22/10 Cecil Ferraro MD [address] [address] PCP - General 04/24/09 05/19/09 Rossana Parekh MD PCP - General Family Medicine 12/21/18 11/25/19 Rossana Barron MD [address] [place] [address] PCP - General Family Medicine 11/26/19 Cecil Ferraro MD [address] [place] [address] 08/07/17 12/23/18 No Personal, Physician 08/07/17 12/23/18 Cecil Ferraro MD [address] [address] 08/07/17 12/23/18 Alejandrina Lake MD 08/07/17 12/23/18 Alejandrina Lake MD 08/07/17 12/23/18 documented as of this encounter Additional Source Comments PLEASE NOTE: Replies to this message will not be received.[facility] and [facility]
--- OUTSIDE RECORDS SUMMARY | 2024-05-14 10:40 | XMS_ITS | Clinical Summary ---
Author Organization [employer] [facility] Address [address] [place] [address] Care Team Providers Care Manager Trade Name Role Phone Rossana Barron MD Primary Care Provider [phone] Allergies Active Allergy Reactions Criticality Noted Date Comments Kiwi Other Low 11/06/2017 Mouth tingling Tetracycline Rash Medications Medication Sig Dispensed Refills Start Date End Date Status other (unlisted) 24 hr blood sugar and carb and sugar ibllie Active metFORMIN XR (GLUCOPHAGE XR) 500 mg [...] 208(H) <200 mg/dL 10/27/2020 5:44 PM CDT [facility] Triglycerides 279(H) 30 - 150 mg/dL 10/27/2020 5:44 PM CDT [facility] Cholesterol, LDL (Calculated) 111 0 - 159 mg/dL 10/27/2020 5:44 PM CDT [facility] Cholesterol, HDL 41 >40 mg/dL 10/28/19 21 5:44 PM CDT [facility] Cholesterol, vLDL 56 mg/dL 021 5:44 PM CDT [facility] Blood VENOUS BLOOD / Unknown Venipuncture / Unknown 10/27/2020 2:59 PM CDT 10/27/2020 2:59 PM CDT Rossana Parekh MD LAB CHEMISTRY ORDERA [facility] Organization Address City/State/ZIP Co de Phone Number [facility] [address] [place] [address] * PAP TEST (12/21/2018 9:00 AM CDT) Specimen Adequacy Satisfactory for evaluation: Endocervical component present. Satisfactory for evaluation: Partially obscured by inflammation. 12/26/2018 2:[address] [facility] Interpretation Negative for intraepithelial lesion or malignancy. 12/26/2018 2:[address] [facility] Reflex? Reflex if ASCUS only 12/26/2018 2:[address] [facility] Disclaimer/Infor mational Comment The Pap [...] additional confirmatory testing. 12/26/2018 2:[address] [facility] Other PART OF UTERINE CERVIX / Unknown 12/21/2018 9:00 AM CDT 12/25/2018 5:12 PM CDT Rossana Parekh MD LAB CYTOLOGY ORDERAB [facility] [address] [place] [address], * COLONOSCOPY (11/13/2017 8:40 AM CDT) 11/13/2017 8:40 AM CDT Narrative [facility] - 11/13/2017 9:39 AM CDT [facility] Patient Name: Rebekah Leroy Procedure Date: 11/13/2017 8:40 AM Date of : 1960 Admit Type: Outpatient Age: 57 Room: [facility] Gender: Female Note Status: Finalized Attending [...] and oxygen saturations ?were monitored continuously. The [id number] was introduced ?through the anus and advanced [...] 8:40 AM Cecil Ferraro MD GI PROCEDURES [facility] * HPV HIGH RISK (02/03/2011 5:00 PM CDT) HPV TYPE 16 NEGATIVE NEG [facility] HPV TYPE 18 NEGATIVE NEG [facility] HPV TYPE 31 NEGATIVE NEG [facility] HPV TYPE 33 NEGATIVE NEG [facility] HPV TYPE 35 NEGATIVE NEG [facility] HPV TYPE 39 NEGATIVE NEG [facility] HPV TYPE 45 NEGATIVE NEG [facility] HPV TYPE 51 [facility]GATIVE NEG [facility] HPV TYPE 52 NEGATIVE NEG [facility] HPV TYPE 56 NEGATIVE NEG [facility] HPV TYPE 58 NEGATIVE NEG [facility] HPV TYPE 59 NEGATIVE NEG [facility] HPV TYPE 66 NEGATIVE NEG [facility] HPV TYPE 68 NEGATIVE NEG [facility] Comment: Methodology: The HPV-HR QUAD test is designed to detect and identify high risk HPV types 16, 18, 31, 33, 35, 39, 45, 51, 52, 56, 58, 59, 66, and 68. Genomic DNA was extracted from the submitted Sure[employer] sample using the [employer] HPV sample processing kit. The HPV-HR assay includes five major processes: 1) Multiplex PCR amplification of purified DNA 2) Fluorescent label incorporation using analyte specific primer extension (ASPE) 3) Hybridization of the labeled ASPE ??to a microarray followed by washing 4) Scanning of the microarray and 5) Signal detection and analysis. The analytical and performance characteristics of this test were validated by [facility] pursuant to Clinical Laboratory Improvement Amendments [...] LAB SEROLOGY ORDERAB LES Performing Organization Address City/[facility] Co de Phone Number [facility] [address] [place] [address] [phone] * HEPATITIS C ANTIBODY (11/29/2001 12:09 PM CDT) HEPATITIS C ANTIBODY NONREACTIVE NONR [facility] HEPATITIS C ANTIBODY A NONREACTIVE RESULT INDICATES THE ABSENCE OF DETECTABLE LEVELS OF ANTIBODY TO HEPATITIS C VIRUS. AT PRESENT, THERE IS NO RECOGNIZED STANDARD FOR EVALUATING THE PRESENCE OR ABSENCE OF HEPATITIS C VIRUS ANTIBODIES INHUMAN BLOOD. THEREFORE, THIS RESULT DOES NOT PRECLUDE EXPOSURE TO OR INFECTION WITH HEPATITIS C VIRUS. [facility] 11/29/2001 12:0 9 PM CDT Marnie Zazueta MD LAB SEROLOGY ORDERAB LES [facility] [employer] [facility] [address] [place] [address] from Last 3 Months or Most Recently Relevant to Health Maintenance Care Teams Manager Trade Relationship Specialty Start Date End Date Rossana Barron MD [address] [place] [id number] PCP - General Family Medicine 11/26/19 Additional Source Comments PLEASE NOTE: Replies to this message will not be received.[facility] and [facility]
--- OUTSIDE RECORDS SUMMARY | 2024-05-14 10:40 | XMS_ITS | Encounter Summary ---
Author Organization [facility] [employer] [facility] Address [address] [place] [id number] Care Team Providers Care Rail Switch Operator Name Role Phone Cecil Ferraro MD Primary Care Provider [phone] No Personal, Physician Primary Care Provider Geri vailable Cecil Ferraro MD Primary Care Provider + Cecil Ferraro MD Unavailable [phone] No Personal, Physician Unavailable Unavailab le Cecil Ferraro MD Unavailable Alejandrina Lake MD Unavailable Unavailable Alejandrina Lake MD Unavailable Unavailable Rossana Parekh MD Primary Care Provider Rossana Barron MD Primary Care Provider [phone] Encounter Details Date Type Department Care Team (Late st Contact Info) Description 12/23/2003 [facility] [address] [place], [place] [address], [place] [id number] Unknown, [place] [address] Social History Tobacco Use Types Packs/Day Years [...] documented as of this encounter Care Teams Rail Switch Operator Relationship Specialty Start Date End Date Cecil Ferraro MD [address] [place] [address] PCP - General 03/23/10 12/20/18 No Personal, Physician PCP - General 05/20/09 03/22/10 Cecil Ferraro MD [facility] [id number] [place], [place] [id number] PCP - General 04/24/09 05/19/09 Rossana Parekh MD PCP - General Family Medicine 12/21/18 11/25/19 Rossana Barron MD [address] [place] [address] PCP - General Family Medicine 11/26/19 Cecil Ferraro MD [address] [place] [address] 08/07/17 12/23/18 No Personal, Physician 08/07/17 12/23/18 Cecil Ferraro MD [facility] [address] [address] 08/07/17 12/23/18 Alejandrina Lake MD 08/07/17 12/23/18 Alejandrina Lake MD 08/07/17 12/23/18 documented as of this encounter Additional Source Comments PLEASE NOTE: Replies to this message will not be received.[facility] and [facility]
--- OUTSIDE RECORDS SUMMARY | 2024-05-14 10:40 | XMS_ITS | Encounter Summary ---
Author Organization [facility] [facility] Address [address] [place] [address] Care Team Providers Care Nursing Education Specialist Name Role Phone Cecil Ferraro MD Primary Care Provider [phone] No Personal, Physician Primary Care Provider Geri vailable Cecil Ferraro MD Primary Care Provider + Cecil Ferraro MD Unavailable [phone] No Personal, Physician Unavailable Unavailab le Cecil Ferraro MD Unavailable [phone] Alejandrina Lake MD Unavailable Unavailable Alejandrina Lake MD Unavailable Unavailable Rossana Parekh MD Primary Care Provider Rossana Barron MD Primary Care Provider [phone] Encounter Details Date Type Department Care Team (Late st Contact Info) Description 04/05/2007 [facility] Generic Global Regulatory Lead [address] [place] [address] Social History Tobacco Use Types Packs/Day Years [...] documented as of this encounter Care Teams Nursing Education Specialist Relationship Specialty Start Date End Date Cecil Ferraro MD [address] [place] [address] PCP - General 03/23/10 12/20/18 No Personal, Physician PCP - General 05/20/09 03/22/10 Cecil Ferraro MD [facility] [address] [place], [place] [id number] PCP - General 04/24/09 05/19/09 Rossana Parekh MD PCP - General Family Medicine 12/21/18 11/25/19 Rossana Barron MD [address] [place] [id number] PCP - General Family Medicine 11/26/19 Cecil Ferraro MD [address] [place], [place] [phone] 08/07/17 12/23/18 No Personal, Physician 08/07/17 12/23/18 Cecil Ferraro MD [address] [address] 08/07/17 12/23/18 Alejandrina Lake MD 08/07/17 12/23/18 Alejandrina Lake MD 08/07/17 12/23/18 documented as of this encounter Additional Source Comments PLEASE NOTE: Replies to this message will not be received.[facility] and [facility]
--- NOTE | 2024-05-14 10:45 | CRLHL7_ITS ---
For Patients: As a result of the Century Cures Act, medical imaging exams and procedure reports are released immediately into your electronic medical record. You may view this report before your referring provider. If you have questions, please contact your health care provider. BILATERAL SCREENING MAMMOGRAM WITH COMPUTER-AIDED DETECTION AND TOMOSYNTHESIS TECHNIQUE: CC and MLO views were obtained. These mammographic images have been obtained using full-field digital technique. These mammographic images were interpreted with the benefit of computer-aided detection. Breast Tomosynthesis was used in this interpretation. COMPARISON FILM: 03/03/23, 12/27/21. FINDINGS: There are scattered areas of fibroglandular density. IMPRESSION: There is no radiographic evidence for malignancy. ASSESSMENT: BI-RADS Category 1: Negative RECOMMENDATION: Routine screening mammogram in 1 year. A lay language report of this examination will be provided to the patient. Sesar Mallory M.D. Diagnostic Radiologist [email or web address] SP/Dictated by: Sesar Mallory MD @ 05/20/2024 10:44:00 AM (Electronically Signed)
--- NOTE | 2024-05-14 13:00 | CRLHL7_ITS ---
For Patients: As a result of the Century Cures Act, medical imaging exams and procedure reports are released immediately into your electronic medical record. You may view this report before your referring provider. If you have questions, please contact your health care provider. INDICATION: Intermittent right flank pain TECHNIQUE: CT abdomen and pelvis acquired with 103 mL Isovue 370 IV contrast. COMPARISON: 04/10/2022 chest abdomen pelvis CTA FINDINGS: Lower chest: Unchanged 4.6 mm right lower lobe pulmonary nodule should be benign. Liver: Low-density lesions in the caudate and right hepatic lobe, are unchanged in size, and should be benign. Enhanced on the previous study Gallbladder and bile ducts: Cholecystectomy. Pancreas: Unremarkable. No mass or inflammation. Spleen: Unremarkable. Normal in size. No masses. Adrenal glands: Stable 1.8 cm left adrenal nodule. Kidneys: Tiny nonobstructing stone in the inferior right kidney. GI tract: Scattered colonic diverticulosis without diverticulitis. Normal appendix. Vasculature: Unremarkable. Mesenteric arteries are patent. Lymph nodes: No lymphadenopathy. Omentum/Peritoneum/Abdominal Wall: Unremarkable. No sign of mass or infiltration. No free air or significant free fluid. Pelvis: Unremarkable. Bones: Unremarkable for age. IMPRESSION: 1. No acute findings. 2. Minimal right nephrolithiasis. No obstruction. Please note that all CT scans at this facility use dose modulation, iterative reconstruction, and/or weight-based dosing when appropriate to reduce radiation dose to as low as reasonably achievable. Dictated by Abdulaziz Cortes MD @ 05/15/2024 8:18:31 AM (Electronically Signed)
== END 2024-05-14 10:37 | disposition home or self-care (01) ==
LOC: MAMMO 10:37
PROVIDERS: PCP Internal Medicine; Visit Provider Internal Medicine
DX: R07.9 Chest pain, unspecified (principal); N20.0 Calculus of kidney; Z12.31 Encounter for screening mammogram for malignant neoplasm of breast
CPT/HCPCS: 74177; 77063; 77067; Q9967

== ENCOUNTER 2025-02-24 08:35 | Outpatient (CLI) | payer BC, SELFPAY | END 2025-02-24 08:36 | disposition home or self-care (01) | LOC: NFLDREF 03-05 15:14 | PROVIDERS: PCP Internal Medicine; Referring Provider Internal Medicine; Visit Provider Internal Medicine | DX: Z00.00 Encounter for general adult medical examination without abnormal findings (principal); E11.65 Type 2 diabetes mellitus with hyperglycemia; E78.5 Hyperlipidemia, unspecified | CPT/HCPCS: 80053; 80061; 82043; 82570 ==

== ENCOUNTER 2025-07-01 18:52 | Outpatient (CLI) | payer BC, SELFPAY ==
--- NOTE | 2025-07-01 19:00 | CRLHL7_ITS ---
For Patients: As a result of the Century Cures Act, medical imaging exams and procedure reports are released immediately into your electronic medical record. You may view this report before your referring provider. If you have questions, please contact your health care provider. INDICATION: BILATERAL SCREENING MAMMOGRAM, ASYMPTOMATIC 65 Y/O FEMALE COMPARISON: 05/14/2024, 03/03/2023, 12/27/21 TECHNIQUE: Digital mammogram in CC and MLO projections including computer-aided detection (CAD) and tomosynthesis. BREAST COMPOSITION: There are scattered areas of fibroglandular density. FINDINGS: No suspicious findings. ASSESSMENT: BI-RADS 1 Negative RECOMMENDATION: Annual screening mammogram. A lay language report of this examination will be provided to the patient. Dictated by: Katelyn Singleton MD @ 07/03/2025 07:45:42 (Electronically Signed)
== END 2025-07-01 18:53 | disposition home or self-care (01) ==
LOC: MAMMO 18:53
PROVIDERS: PCP Internal Medicine; Visit Provider Internal Medicine
DX: Z12.31 Encounter for screening mammogram for malignant neoplasm of breast (principal)
CPT/HCPCS: 77063; 77067